=== PATIENT | female | born 1960 | race Caucasian/White ===

== ENCOUNTER → 2021-09-10 17:32 | Outpatient (CLI) | payer OTHER, SELFPAY ==
--- NOTE | 2021-09-10 17:34 | DI.MG.S_ITS ---
BILATERAL DIGITAL SCREENING MAMMOGRAM 3D/2D WITH CAD: 09/10/2021 CLINICAL: Routine screening. Family history of breast cancer. Comparison is made to exams dated: 03/13/2016 mammogram and 02/09/2014 mammogram - outside location. The tissue of both breasts is predominantly fatty. Current study was also evaluated with a Computer Aided Detection (CAD) system. No significant masses, calcifications, or other findings are seen in either breast. There has been no significant interval change. IMPRESSION: NEGATIVE There is no mammographic evidence of malignancy. A 1 year screening mammogram is recommended. This exam was interpreted at Station ID: [id number]. NOTE: For mammograms, a report in lay terms will be sent to the patient. Approximately 15% of breast malignancies will not be visualized mammographically. In the management of a palpable breast mass, a negative mammogram must not discourage biopsy of a clinically suspicious lesion. Electronically Signed By: Nahun pendleton/demetrice:09/11/2021 08:20:17 letter sent: Normal Exam ACR BI-RADS Category 1: Negative [id number]
== END ==
PROVIDERS: PCP Family Medicine; Referring Provider Student in an Organized Health Care Education/Training Program; Visit Provider Student in an Organized Health Care Education/Training Program
DX: Z12.31 Encounter for screening mammogram for malignant neoplasm of breast (principal); Z80.3 Family history of malignant neoplasm of breast
CPT/HCPCS: 77063; 77067

== ENCOUNTER 2023-12-11 04:50 | Inpatient (IN) | payer OTHER, SELFPAY ==
[2023-12-11] VITALS (92 sets, daily range): BP systolic 82–171; BP diastolic 45–102; PULSE 90–133; RESP 11–38; TEMP 36.3–37; O2SAT 82–100; BMI 36.8
--- NOTE | 2023-12-11 | DI.RAD.S_ITS ---
PROCEDURE: XR CHEST 1V INDICATIONS: respiratory failure TECHNIQUE: One view of the chest was acquired. COMPARISON: None. FINDINGS: Surgical changes and devices: None. Lungs and pleura: Prominent pulmonary markings. No consolidation. No pleural effusions or pneumothorax. Mediastinum: Mediastinal contours appear normal. Heart size is normal. Bones and chest wall: No suspicious bony lesions. Overlying soft tissues appear unremarkable. IMPRESSION: Question pulmonary vasculature engorgement. Dictated by: Edvin Green M.D. on 12/11/2023 at 8:19 Approved by: Edvin Green M.D. on 12/11/2023 at 8:20
--- NOTE | 2023-12-11 07:25 | PM.HP.1 ---
History of Present Illness History of Present Illness Date Patient Seen: 12/11/23 Time Patient Seen: 06:30 Chief complaint: roman, astma exacerbation, hyponatremia Narrative: 63 y/o with PMH of asthma, DM, HTN and HLD, seen in the ED of [facility] . short of breath, febrile, dehydrated. Workup revealed likely viral bronchitis, hypoxia requiring few liters of oxygen and ROMAN. Due to lack of beds patient transferred to [facility] as a direct admission. [facility], [facility] Medical History (Updated 12/11/23 @ 07:32 by Milton Modi MD) HLD (hyperlipidemia) Diabetes HTN (hypertension) CKD (chronic kidney disease) Social History household members: spouse Smoking Status: Former smoker alcohol intake: current Review of Systems Constitutional Comments: Fever Generalized weakness Cardiovascular Comments: w/o chest pain or palpitations Respiratory Comments: short of breath Genitourinary Comments: w/o dysuria Exam Vital Signs (past 8 hours): - 12/11/23 06:28 12/11/23 06:48 Temperature 97.3 F L Pulse Rate 133 H Respiratory Rate 24 Blood Pressure 148/84 H Pulse Oximetry 99 Oxygen Delivery Method Nasal Cannula Oxygen Flow Rate 2 Oxygen Delivery Method Nasal Cannula Oxygen Flow Rate 2 Const Other: Sitting in bed in no distress, at bedside HENMT Other: normocephalic, O2 via NC Neck Other: supple Resp Other: wheezy, tachypnea, rhonchi Cardio Other: tachycardic, regular Skin Other: w/o rashes Extrem Other: b/l lower leg swelling, Rt > Lt Psych Other: appropriate mood, lucid Assessment & Plan Assessment and plan (1) Acute hypoxic respiratory failure: Status: Acute (2) Acute viral bronchitis: Status: Acute (3) ROMAN (acute kidney injury): Status: Acute (4) Hyponatremia: Status: Acute (5) Diabetes: Status: Acute (6) HTN (hypertension): Status: Acute Assessment & Plan narrative: 1. Acute Hypoxemic Respiratory Failure - tested positive for rhinovirus and enterovirus, CXR w/o infiltrates - in outside hospital - repeat CXR - albuterol, prednisone for asthma exacerbation - wean off oxygen 2. ROMAN - reported Cr of > 2, previously ~ 1.5 - she was febrile and had decreased PO intake - likely dehydration - checking UA nevertheless 3. Rt leg swelling - doppler - r/o DVT 4. DM - Type 2, ID - at home on Lantus 30 U am and 35 U pm and Trulicity - CCD, SS, Lantus 5. HTN - Lisinopril and HCTZ on hold for ROMAN - BB instead 6. Hyponatremia - NS, monitored electrolytes DVT prophylaxis - heparin Quality VTE Deep Vein Thrombosis/Pulmonary Embolism Present on Admission: No
[2023-12-11] MEDS: SODIUM CHLORIDE 0.45% 1,000 ML 100 ML IV (07:44)
--- NOTE | 2023-12-11 07:55 | DI.US.S_ITS ---
PROCEDURE: US PERIPH VENOUS LOW EXTREM RT INDICATIONS: SOB; EDEMA TECHNIQUE: Real-time imaging, as well as color and pulse Doppler interrogation, were performed of the lower extremity deep veins from the inguinal ligament to the popliteal fossa, with documentation of the visualized calf veins. COMPARISON: None. FINDINGS: The common femoral, femoral, popliteal, and the visualized calf veins are normally compressible, and free of intraluminal thrombus. Color and pulse Doppler demonstrate normal phasic intraluminal flow. There is normal augmentation response to distal compression maneuver. IMPRESSION: Negative left lower extremity duplex venous ultrasound for DVT. Dictated by: Ezequiel Pearl M.D. on 12/11/2023 at 8:37 Approved by: Ezequiel Pearl M.D. on 12/11/2023 at 8:37
[2023-12-11] MEDS: INSULIN LISPRO 100 UNIT/ML 3ML VIAL SUBCUT ×3 (08:08→21:59)
[2023-12-11] MEDS: INSULIN GLARGINE 100 UNIT/ML 3ML PEN 30 UNIT SUBCUT (08:52)
[2023-12-11] MEDS: HEPARIN 5,000 UNIT/ML VIAL 5000 UNIT SUBCUT (08:53)
[2023-12-11] MEDS: METOPROLOL IR 25 MG TABLET PO ×2 (08:53→14:47)
[2023-12-11] MEDS: predniSONE 20 MG TABLET 40 MG PO (08:53)
[2023-12-11 08:59] LABS: Add Manual Diff / Slide Review NO; Basophils Absolute Auto 0 /uL (0-100); Basophils Percent Auto 0.1 % (0-2); Eosinophils Absolute Auto 0 /uL (0-450); Hematocrit 31.1 % (36-46); Hemoglobin 10.2 g/dL (12.0-16.0); Lymphocytes Absolute Auto 800 /uL (1100-4500); Lymphocytes Percent Auto 4.6 % (25-40); Mean Corpuscular HGB Conc 32.9 % (30-36); Mean Corpuscular Volume 85.2 fL (80-100); Monocytes Absolute Auto 700 /uL (0-900); Neutrophils Absolute Auto 15400 /uL (1500-7000); Neutrophils Percent Auto 91.3 % (50-75); Platelet Count 273 X10^3/uL (150-400); Red Blood Cell Count 3.65 X10^6/uL (4.0-5.2); Red Cell Distribution Width 14.9 % (11.6-14.8); White Blood Cell Count 16.9 X10^3/uL (4.5-11.0)
[2023-12-11 09:08] LABS: Magnesium 2.3 mg/dL (1.6-2.3); Phosphorous 7.4 mg/dL (2.8-4.1)
[2023-12-11 09:09] LABS: Alanine Aminotransferase 18 IU/L (<35); Albumin 3.4 g/dL (3.5-5.0); Alkaline Phosphatase 318 U/L (38-126); Aspartate Aminotransferase 33 IU/L (14-36); BUN Creatinine Ratio 28.2 (6-22); Bilirubin Total 0.6 mg/dL (0.2-1.3); Blood Urea Nitrogen 77 mg/dL (7-17); Calcium 8.3 mg/dL (8.4-10.2); Carbon Dioxide 14 mmol/L (22-32); Chloride 98 mmol/L (98-107); Estimated Glomerular Filt Rate 19 mL/min (>60); Globulin 3.5 g/dL (1.7-4.1); Glucose 324 mg/dL (80-110); HEMOLYSIS < 15 (0-50); Sodium 127 mmol/L (137-145); Total Protein 6.9 g/dL (6.3-8.2)
[2023-12-11 09:19] LABS: NT-proBNP (BNP-Adult 18+) 8510 pg/mL (<125)
[2023-12-11 09:24] LABS: Bilirubin Urine UA 2+ (NEGATIVE); Color Urine UA YELLOW; Glucose Urine UA TRACE g/dL (Negative); Ketones Urine UA TRACE (NEGATIVE); Leukocyte Esterase Urine UA NEGATIVE (NEGATIVE); Nitrite Urine UA NEGATIVE (Negative); Occult Blood Urine UA 2+ (Negative); Protein Urine UA 2+ (Negative); Specific Gravity Urine UA 1.025 (1.000-1.035)
[2023-12-11 09:35] LABS: Appearance Urine UA Slightly Cloudy; pH Urine UA 5.5 (4.5-8.0)
[2023-12-11 09:36] LABS: Ictotest Urine Negative (Negative); RBC Urine 1-5/HPF (0-5/HPF); Squamous Epithelial Cell Urine 1-5 /HPF (0-5/HPF); Urine Volume 10mL (spun); WBC Urine 1-5/HPF (0-5/HPF)
[2023-12-11 09:39] LABS: Renal Epithelial Cells Urine 1-5/HPF (0-1/HPF)
[2023-12-11 09:40] LABS: Bacteria Urine Occasional (0-1); Culture Indicated Urine Cult Not Indicated; Transitional Epi Cells Urine 0-1/HPF (0-5/HPF)
[2023-12-11] MEDS: ALBUTEROL 2.5 MG/3 ML NEB (ADULT) INH ×2 (09:45→10:33)
--- NOTE | 2023-12-11 10:21 | DI.ECHO.S_ITS ---
[place] +---------+ Hospital : : [address] : : [place] : : [id number] : : Phone: [phone] Echocardiogram Report + + :Name: RICK RUSSO Study Date: 12/11/2023 Height: 64 in : :Hospital ReadingLocation: Weight: 214 lb : : Gender: Female BSA: 2.0 m2 : :: 1960 Age: 63 yrs BP: 145/60 mmHg: :Reason For Study: SHORTNESS OF BREATH : :Ordering Physician: YOLY, : :RHYS LAM Performed By: Eva Little : :Referring: RHYS FREDERICK : + + Interpretation Summary The left ventricle is moderately dilated. The ejection fraction is estimated to be 30-35%. There is moderate global hypokinesis of the left ventricle. Lateral wall moves the best. The IVC is of normal diameter and collapses less than 50% with a sniff. This suggests a right atrial pressure of 8 mm Hg. There is moderate mitral regurgitation. Procedure: A two-dimensional transthoracic echocardiogram with color flow and Doppler was performed. The study quality was technically adequate. There is no prior echocardiogram noted for this patient. The patient was in sinus tachycardia with heart rates between 117-120 bpm during the exam. Left Ventricle: The left ventricle is moderately dilated. The estimated left ventricular end diastolic volume is 151 ml. Left ventricular end diastolic volume indexed by BSA of 75ml/m2. The ejection fraction is estimated to be 30- 35%. There is moderate global hypokinesis of the left ventricle. Lateral wall moves the best. Diastolic function could not be accurately assessed due to tachycardia. Right Ventricle: The right ventricle is normal in size and function. Atria: The left atrium is mildly dilated. Right atrial size is normal. There is no Doppler evidence for an interatrial shunt. Mitral Valve: The mitral valve leaflets appear mildly thickened, but open well. There is moderate mitral regurgitation. Aortic Valve: The aortic valve is trileaflet. The aortic valve is mildly calcified. There is mild aortic valve sclerosis. There is no aortic valve stenosis. The peak aortic velocity is 1.8 m/sec. The aortic valve mean gradient is 7.5 mmHg. No aortic regurgitation is present. Tricuspid Valve: The tricuspid valve is not well visualized, but is grossly normal. There is a trace or physiologic amount of tricuspid regurgitation. Pulmonary artery pressures cannot be estimated because of the lack of a measurable TR jet velocity but the IVC suggests a CVP of around 8 mmHg. Pulmonic Valve: The pulmonic valve is not well seen, but is grossly normal. There is no pulmonic valvular regurgitation. Great Vessels: The aortic root is normal size. The dimensions of the ascending aorta are normal. The IVC is of normal diameter and collapses less than 50% with a sniff. This suggests a right atrial pressure of 8 mm Hg. Pericardium/ Pleura There is no pericardial effusion. There is no pleural effusion. MMode/2D Measurements & Calculations LVIDd: 6.3 cm LVOT diam: 2.0 cm LVIDs: 5.1 cm Ao root diam: 3.0 cm FS: 18.3 % asc Aorta Diam: 2.9 cm EPSS: 1.6 cm IVSd: 0.96 cm LVPWd: 1.00 cm LV latham. diameter/BSA (cm/m^2): 3.1 LV sys. diameter/BSA (cm/m^2): 2.6 LA A2 area: 23.0 cm2 RA long axis: 4.4 cm LA A4 area: 18.8 cm2 RA area: 13.9 cm2 LA length (vol): 5.2 cm RA vol: 37.5 ml LA vol: 70.4 ml RA : 18.6 ml/m2 LA vol index: 35.0 ml/m2 IVC diam: 1.8 cm RVD1 (basal): 3.7 cm RVD2 (mid): 3.2 cm TAPSE: 1.7 cm Doppler Measurements & Calculations Ao V2 max: 182.5 cm/sec LVOT Max Cresencio: 77.0 cm/sec Ao V2 mean: 129.5 cm/sec LV V1 max P.4 mmHg Ao max P.3 mmHg LV V1 VTI: 13.2 cm Ao mean P.5 mmHg KAMLA(I,D): 1.5 cm2 Ao V2 VTI: 27.0 cm KAMLA(V,D): 1.3 cm2 sev ratio: 0.49 KAMLA indexed to BSA (cm^2/m^2): 0.76 MV E max cresencio: 150.2 cm/sec PA V2 max: 101.7 cm/sec MV A max cresencio: 1.0 cm/sec PA V2 mean: 73.1 cm/sec MV E/A: 147.9 PA mean P.3 mmHg Med Peak E' Cresencio: 8.8 cm/sec PA pr(Accel): 40.5 mmHg E/E' med: 17.1 Lat Peak E' Cresencio: 10.7 cm/sec E/E' lat: 14.1 E/e' average: 15.6 MV dec time: 0.16 sec MVA(VTI): 1.3 cm2 MR ERO: 0.12 cm2 MV V2 mean: 101.4 cm/sec MR PISA: 1.6 cm2 MV mean P.3 mmHg MR flow rate: 60.3 cm3/sec MV V2 VTI: 32.1 cm MR PISA radius: 0.50 cm SV(LVOT): 41.4 ml Reading Physician:03:10 PM
[2023-12-11 10:31] LABS: MRSA (Nasal) PCR NOT DETECTED (Not Detect)
[2023-12-11] MEDS: FUROSEMIDE 40 MG/4 ML VIAL IV (10:50)
--- NOTE | 2023-12-11 10:52 | PC.NURSE ---
Pt complaining of shortness of breath not relieved by albuterol tx, BP 171/101. MD notified and orders received.
[2023-12-11 11:24] LABS: Troponin I 0.018 ng/mL (0.01-0.034)
--- NOTE | 2023-12-11 12:21 | PC.NURSE ---
cdl service technician arrived to perform echo. Pt requested to use BSC and for privacy. Pt assisted to BSC, this RN at doorway. Pt requested to change underwear, RN advised patient to change at the bedside with RN for safety and monitoring capability. Patient declined, stating, Give me a goddamn minute. This RN assisted patient to bathroom SBA contact guard. Pt removed telemetry and BP cuff, throwing to floor. Pt closed bathroom door. This RN opened door to witness pt struggling to put leg through underwear while standing up. RN intervened by opening bathroom door, pt leaned against this RN, slid to floor against RN's legs into sitting position on floor. Pt did not hit head. This RN called for assistance, nursing staff attempted to assist pt to standing position which were unable to do. Pt assisted via jaycob lift back to bed. Vital signs stable, oxygenation 96%-99% on 1L NC. Pt A&Ox4. No evidence injury as pt slid into sitting position with assistance from this RN. Primary RN aware and present. Provider notified. Bed alarm active, care plan updated, call light within reach, curtain open, will continue to monitor.
[2023-12-11 13:33] LABS: BUN Creatinine Ratio 28.8 (6-22); Blood Urea Nitrogen 78 mg/dL (7-17); Calcium 8.6 mg/dL (8.4-10.2); Carbon Dioxide 14 mmol/L (22-32); Chloride 98 mmol/L (98-107); Estimated Glomerular Filt Rate 19 mL/min (>60); Glucose 314 mg/dL (80-110); HEMOLYSIS < 15 (0-50); Sodium 127 mmol/L (137-145)
--- NOTE | 2023-12-11 13:37 | PM.HP.1 ---
History of Present Illness History of Present Illness Date Patient Seen: 12/11/23 Time Patient Seen: 13:00 Chief complaint: roman, astma exacerbation, hyponatremia Narrative: 63 y/o with PMH of asthma, DM, HTN and HLD, seen in the ED of [facility]. short of breath, febrile, dehydrated. Workup revealed likely viral bronchitis, hypoxia requiring few liters of oxygen and ROMAN. Due to lack of beds patient transferred to [facility] as a direct admission. Patient was seen after admission by overnight provider. She has been having mild dyspnea for about the past week. Also with productive cough, rhinorrhea. She denies chest pain. She felt like she couldn't breathe yesterday and came in to the OSH ER. In review of labs from outside hospital, patient with acidosis, elevated anion gap and hyperglycemia. WBC was 23 and Cr was 2.9 at OSH. AG was 19, with a bicarb of <15, lactate was normal. This morning after some fluids labs redrawn after arrival which showed borderline DKA labs. Cr improved slightly to 2.7, WBC improved, but gap of 15 and CO2 of 14. She had gotten lantus this morning by the time labs were drawn, IV fluids had been stopped due to worsening dyspnea (with proBNP of >8000), and was given furosemide. Decision made to repeat labs in 4 hours (as opposed to starting insulin infusion for borderline DKA). Repeat labs remained borderline with CO2 of 14 and mildly elevated anion gap. Remains in sinus tachycardia in the 110s-130s. Had a fall trying to change underwear in the bathroom by herself without any injuries noted after. Subsequently transferred to the ICU for insulin infusion given borderline DKA not improved after subcutaneous insulin and underlying sepsis. [facility] Medical History HLD (hyperlipidemia) Diabetes HTN (hypertension) CKD (chronic kidney disease) Social History household members: spouse Smoking Status: Former smoker alcohol intake: current Meds Home Medications and Allergies Home Medications Medication Instructions Recorded Confirmed Type dulaglutide 3 mg/0.5 mL 3 mg SUBCUT WEEKLY 12/11/23 12/11/23 History subcutaneous pen injector (Trulicity) hydrochlorothiazide 12.5 mg PO DAILY 12/11/23 12/11/23 History insulin glargine 100 unit/mL (3 30 unit SUBCUT 3XD 12/11/23 12/11/23 History mL) subcutaneous pen (Lantus Solostar U-100 Insulin) lisinopril 40 mg tablet 40 mg PO DAILY 12/11/23 12/11/23 History simvastatin 40 mg tablet 40 mg PO ONCE PM 12/11/23 12/11/23 History Allergies Allergy/AdvReac Type Severity Reaction Status Date / Time No Known Drug Allergies Allergy Verified 12/11/23 07:58 Review of Systems Review of Systems Narrative: All other systems reviewed with the patient and are negative unless otherwise stated. Exam Vital Signs (past 8 hours): - 12/11/23 06:28 12/11/23 06:48 12/11/23 07:21 Temperature 97.3 F L Pulse Rate 133 H 124 H Respiratory Rate 24 19 Blood Pressure 148/84 H Pulse Oximetry 99 97 Oxygen Delivery Method Nasal Cannula Oxygen Flow Rate 2 Fraction of Inspired Oxygen 12/11/23 07:30 12/11/23 08:00 12/11/23 08:30 Temperature Pulse Rate 129 H 132 H 129 H Respiratory Rate 22 Blood Pressure Pulse Oximetry 97 98 97 Oxygen Delivery Method Oxygen Flow Rate Fraction of Inspired Oxygen 12/11/23 09:00 12/11/23 09:30 12/11/23 09:46 Temperature Pulse Rate 125 H 115 H 113 H Respiratory Rate 22 22 Blood Pressure Pulse Oximetry 99 96 97 Oxygen Delivery Method Room Air Oxygen Flow Rate 0 Fraction of Inspired Oxygen 21 12/11/23 10:00 12/11/23 10:30 12/11/23 10:41 Temperature Pulse Rate 117 H 128 H 128 H Respiratory Rate 22 29 H 27 H Blood Pressure Pulse Oximetry 97 97 98 Oxygen Delivery Method Oxygen Flow Rate Fraction of Inspired Oxygen 12/11/23 10:41 12/11/23 11:00 12/11/23 11:30 Temperature Pulse Rate 132 H 132 H Respiratory Rate 32 H Blood Pressure 171/102 H Pulse Oximetry 93 94 Oxygen Delivery Method Oxygen Flow Rate Fraction of Inspired Oxygen 12/11/23 11:58 12/11/23 11:58 12/11/23 12:00 Temperature 97.8 F Pulse Rate 124 H 124 H Respiratory Rate 27 H 27 H Blood Pressure 145/60 H Pulse Oximetry 92 100 Oxygen Delivery Method Oxygen Flow Rate Fraction of Inspired Oxygen 12/11/23 12:30 12/11/23 13:00 Temperature Pulse Rate 125 H 121 H Respiratory Rate 28 H 24 Blood Pressure Pulse Oximetry 99 97 Oxygen Delivery Method Oxygen Flow Rate Fraction of Inspired Oxygen Fraction of Inspired Oxygen 21 SaO2/FiO2 Ratio 461 Oxygen Delivery Method Room Air Oxygen Flow Rate 0 Narrative Exam Narrative: General:?Patient mildly ill appearing, no acute distress, pleasant Chest:? Normal AP diameter and contour without kyphoscoliosis, no tachypnea, equal chest rise bilaterally. Lungs:? bilateral upper airway expiratory wheezing, no obvious crackles. Cardio:?tachycardic, regular, no m/r/g Abdomen: S NT ND. Musculoskeletal:? Muscle strength and tone are equal within normal limits, no deformity. Extremities: Trace bilateral LE edema, no clubbing or joint effusions Neuro:? Alert and orientated x3,? sensation to touch intact in all extremities, no gross deficits noted of cranial nerves. Psych:? Patient has a well-kept appearance, appropriate affect, mental status attitude thought context and judgment are appropriate for age. Objective ECG Impression: sinus tachycardia Labs 12/11/23 08:36 12/11/23 13:05 Labs: Laboratory Results - last 24 hr 12/11/23 12/11/23 12/11/23 06:15 07:50 08:36 WBC 16.9 H RBC 3.65 L Hgb 10.2 L Hct 31.1 L MCV 85.2 MCH 28.0 MCHC 32.9 RDW 14.9 H Plt Count 273 Neut % (Auto) 91.3 H Lymph % (Auto) 4.6 L [place] % (Auto) 4.0 Eos % (Auto) 0.0 L Baso % (Auto) 0.1 Neut # (Auto) 01873 H Lymph # (Auto) 800 L [place] # (Auto) 700 Eos # (Auto) 0 Baso # (Auto) 0 Sodium 127 L Potassium 5.0 Chloride 98 Carbon Dioxide 14 L BUN 77 H Creatinine 2.73 H Estimated GFR 19 L BUN/Creatinine Ratio 28.2 H Glucose 324 H Calcium 8.3 L Phosphorus 7.4 H Magnesium 2.3 Total Bilirubin 0.6 AST 33 ALT 18 Alkaline Phosphatase 318 H Troponin I 0.018 NT-Pro-B Natriuret Pep 8510 H Total Protein 6.9 Albumin 3.4 L Globulin 3.5 Albumin/Globulin Ratio 1.0 Urine Color Yellow Urine Appearance Slightly cloudy Urine pH 5.5 Ur Specific [place] 1.025 Urine Protein 2+ H Urine Glucose (UA) Trace H Urine Ketones Trace H Urine Occult Blood 2+ H Urine Nitrate Negative Urine Bilirubin 2+ H Ur Bilirubin Confirm Negative Urine Urobilinogen 1.0 Ur Leukocyte Esterase Negative Urine RBC 1-5/hpf Urine WBC 1-5/hpf Ur Squamous Epith Cells 1-5 /hpf Ur Transition Epith Cell 0-1/hpf Ur Renal Epithelial Cell 1-5/hpf H Urine Bacteria Occasional (0-1) Ur Culture Indicated? Cult not indicated Vol Urine Centrifuged 10ml (spun) Nasal Screen MRSA (PCR) Not detected Assessment & Plan Assessment & Plan narrative: (1) Sepsis with ROMAN on CKD, Acute hypoxic respiratory failure secondary to probable bacterial pneumonia after entero/rhinovirus infections - SOFA score of >2 on presentation with respriatory failure and ROMAN. Baseline cr. reportedly around 1.5. - some improvement with hypoxia with diuresis, proBNP >8000. Ordered for TTE. Patient sinus tachycardia in the 110s-130s currently. - hold IV fluids after diuresis and worsening respiratory status after given on presentation - Continue ceftriaxone and azithromycin for presumed bacterial pneumonia after viral pneumonia given WBC >20K at OSH. - prednisone of asthma exacerbation as well - DKA also likely contributing to presentation. - UA negative for infection. (2) Asthma with exacerbation - continue steroids as noted above, and albuterol as needed. (3) DKA, present on admission - patient with AG of 19 at OSH with borderline acidosis (bicarb around 15) and elevated glucose. Trace ketones in urine. Was not started on insulin until after arrival this morning. Repeat labs drawn again showed borderline DKA with bicarb of 14, AG of 15, and elevated glucose though improving creatinine. - elected to repeat BMP 4 hours after initial labs as SQ insulin had just been given and borderline DKA. However given no improvement in acidosis or anion gap will start insulin infusion and move to the ICU. (4) HTN (hypertension): - patient is hypertensive on presentation, will diurese as needed with furosemide. Hold lisinopril in the setting of ROMAN. Code: Full, surrogate is patient's spouse DVT: Lovenox daily I have utilized all available immediate resources to obtain, update, or review the patient's current medications. Dispo: ICU for insulin infusion. I spent 45 minutes providing critical care management this patient. This excludes time spent in performing separately billed procedures. Additional history obtained via discussions with the overnight provider. These discussions contributed to the creation of the above assessment and plan. I have reviewed patient's presenting documentation, labs, and imaging personally. Quality VTE Deep Vein Thrombosis/Pulmonary Embolism Present on Admission: No
[2023-12-11 13:38] LABS: Potassium 5.6 mmol/L (3.4-5.1)
[2023-12-11] MEDS: INSULIN DRIP PREMIX 100 UNIT/100 ML PLAST..BAG IV (14:26)
[2023-12-11 14:30] LABS: PCO2 ABG 43.5 mmHg (35-45)
[2023-12-11 14:31] LABS: Allen Test for ABG Passed? Yes, Passed; Blood Gas Collection Site Left Radial; Blood Gas Other Coll. Site NR; Fractionated Inspired Oxygen 21; HCO3 ABG 17 mmol/L (23-27); Oxygen Saturation ABG 89 % (95-100); PO2 ABG 69 mmHg (80-100); TCO2 ABG 18 mmol/L (23-27)
[2023-12-11] MEDS: cefTRIAXone 1,000 MG in SODIUM CHLORIDE 0.9% 100 ML 200 MG IV (14:47)
[2023-12-11] MEDS: AZITHROMYCIN 500 MG in DEXTROSE 5% IN WATER 250 ML 250 MG IV (15:40)
--- NOTE | 2023-12-11 16:19 | CM.DANOTE ---
DCP Assessment Note Pt is a 63yo female, resident of [place], was directly admitted from [facility]'s emergency department. Pt was admitted for acute kidney injury, hyponatremia and suspected DKA. Pt lives in a house with her , Phillip. PCP: Dr. Mindi Suarez, Insurance: [employer] Reviewed chart and team rounds for pt's medical status and initial discharge needs. CLASSIFICATION CONTROL CLERK attempted 2x to meet with pt but per ICU nurse, pt wanted privacy and/or was in the middle of imaging/intervention. CLASSIFICATION CONTROL CLERK called pt's , Phillip, introduced self and role. Pt's confirmed pt's living arrangements at home and baseline independence. Pt's did not anticipate any discharge needs; CLASSIFICATION CONTROL CLERK provided pt with acute care nurse number to obtain updates from nurse per 's request. Plan: Anticipating home with spouse in a few days. CM team will plan to follow clinical course closely for assessment of need and coordination of discharge plan. EVERETT De Santiago Discharge Planning/Care Management CM Discharge Assessment Start: 12/11/23 16:12 Freq: Status: Active Protocol: Document 12/11/23 16:13 MW (Rec: 12/11/23 16:17 MW [id number]) Discharge Planning Assessment Assigned Spud Sorter SHIREEN Pedersen DPOA/Assigned Designee Name Aung Fisher Contact Information [phone] Advance Directives? No History Provided By Family Member,Medical Record Has Patient been admitted in last 30 No days? Prior Living Arrangements House Household Members spouse Type of transporation used prior to Drives own vehicle admit Independent with ADL's Yes Is patient alert and oriented? Yes Whiteboard Updated in Patient Room with No name and ext. # of Spud Sorter Please Provide Date Initial DC 12/11/23 Assessment Was Performed Next Review Type Continued Stay Review
[2023-12-11] MEDS: SODIUM CHLORIDE 0.9% 500 ML 21 ML IV (16:23)
[2023-12-11] MEDS: LORazepam 0.5 MG TABLET PO (16:32)
--- NOTE | 2023-12-11 16:35 | PC.NURSE ---
1600 pt hyperventilating and states she cant breathe. VS stable, SPO2 97% MD contacted for orders. 1630, Ativan 0.5mg po given as ordered.
--- NOTE | 2023-12-11 16:53 | DI.RAD.S_ITS ---
PROCEDURE: XR CHEST 1V INDICATIONS: acute dyspnea TECHNIQUE: One view of the chest was acquired. COMPARISON: [facility], CR, XR CHEST 1V, 12/11/2023, 7:32. FINDINGS: Surgical changes and devices: Endotracheal tube tip projects over the midthoracic trachea. Feeding tube projects over the stomach. Lungs and pleura: Lower lobe predominant interstitial opacities and peribronchial cuffing. Mediastinum: Mediastinal contours appear normal. Heart size is normal. Bones and chest wall: No suspicious bony lesions. Overlying soft tissues appear unremarkable. IMPRESSION: Suspected moderate pulmonary edema. Support devices project over the appropriate positions. Dictated by: Malik Draper M.D. on 12/11/2023 at 17:45 Approved by: Malik Draper M.D. on 12/11/2023 at 17:46
[2023-12-11] MEDS: SUCCINYLCHOLINE 200 MG/10 ML VIAL 100 MG IV (17:16)
[2023-12-11] MEDS: fentaNYL 1,000 MCG in DEXTROSE 5% IN WATER 230 ML 17.063 MCG IV (17:37)
--- NOTE | 2023-12-11 17:43 | ED.CONSULT ---
ED Provider Consult/Code Note General Reason for Admission: blanca, astma exacerbation, hyponatremia Events leading to Consult/Code: Acute hypercapnic respiratory failure failure to protect airway. Respiratory Auscultation: clear to auscultation bilaterally ET Tube Size: 7 Tube Secured Depth (cm): 22 Tube Secured Location: teeth Tube Placement Confirmation: Visualized tube passing through cords, Equal breath sounds bilaterally, No breath sounds over epigastrium and Confirmation by capnometry Care Provided Description of care provided: Intubation Preprocedure diagnosis: Acute hypercapnic respiratory failure Postprocedure diagnosis: Acute hypercapnic respiratory failure Indication: Airway protection, ventilation Type of procedure: Endotracheal intubation Procedure was done at bedside in the emergency department. Consent was waived as this was an emergent procedure. The patient was properly identified and the procedure was performed with the staff. Prior to intubation monitors were in place and equipment was checked. Patient was preoxygenated. Medications given were: etomidate 10 mg, succinylcholine 100 mg Intubation was performed by myself with GlideScope A 7.0 Endotracheal tube was inserted between vocal cords which were visualized. CO2 monitor showed yellow color change. Positive breath sounds bilaterally with mist in the tube. Tube was taped at 22 cm at the lip by the respiratory therapist. Chest x-ray is obtained at this time: ET tube in place no pneumothorax. Patient does have some opacification on the right mediastinal border may have some aspiration. Complications: none, patient tolerated procedure well.
[2023-12-11] MEDS: MIDAZOLAM 50 MG in DEXTROSE 5 % IN WATER 40 ML IV (17:47)
[2023-12-11] MEDS: FLUMAZENIL 0.5 MG/5 ML MDV 0.2 MG IV (17:52)
[2023-12-11] MEDS: ETOMIDATE 2 MG/ML 10 ML VIAL 9.8 MG IV (17:58)
[2023-12-11 18:01] LABS: Allen Test for ABG Passed? Yes, Passed; Blood Gas Collection Site Right Radial; Fractionated Inspired Oxygen 21; HCO3 ABG 24 mmol/L (23-27); Oxygen Saturation ABG 89 % (95-100); PCO2 ABG 97.7 mmHg (35-45); PO2 ABG 89 mmHg (80-100); TCO2 ABG 27 mmol/L (23-27); pH ABG 6.99 (7.35-7.45)
--- NOTE | 2023-12-11 18:14 | DI.CT.S_ITS ---
PROCEDURE: CT HEAD/BRAIN WO CON INDICATIONS: altered mental status TECHNIQUE: Noncontrast 4.5 mm thick angled axial sections acquired from the foramen magnum to the vertex, with coronal and sagittal reformats. For radiation dose reduction, the following was used: automated exposure control, adjustment of mA and/or kV according to patient size. COMPARISON: None. FINDINGS: Image quality: Diagnostic CSF spaces: Basal cisterns are patent. Lateral ventricles are symmetric. Volume: Vascular calcifications. Periventricular white matter disease is commonly seen with chronic microangiopathy. Volume loss is present. These findings are mild Brain: Very ill-defined areas of hypoattenuation in the bilateral frontal lobes (6/15). No gross loss of damico-white differentiation. No acute hematoma Craniofacial structures: Partially seen opacification of the paranasal sinuses IMPRESSION: Age-indeterminate ill-defined hypoattenuation in the bilateral frontal lobes, possibly from chronic small vessel disease or prior injury such as infarct. If there is high concern for parenchymal pathology, consider further evaluation with MRI. No acute hematoma. Paranasal sinus disease. Dictated by: Des Yu M.D. on 12/11/2023 at 20:16 Approved by: Des Yu M.D. on 12/11/2023 at 20:18
--- NOTE | 2023-12-11 18:16 | DI.CT.S_ITS ---
PROCEDURE: CT CHEST ABD PEL WO CON INDICATIONS: acute respiratory decompensation TECHNIQUE: After the administration of oral contrast, 5 mm thick sections acquired from the lung apices to the symphysis pubis. 5 mm thick coronal and sagittal reformats acquired, with additional 7 mm coronal MIP reformats through the lungs. For radiation dose reduction, the following was used: automated exposure control, adjustment of mA and/or kV according to patient size. COMPARISON: None. FINDINGS: Image quality: Mild motion artifact Lungs and pleura: ET tube terminates in the lower trachea. No drainable pleural effusions. Bibasilar opacities, particularly in the left lower lobe. Diffuse nodularity in a centrilobular pattern. Mediastinum, heart, and esophagus: An enteric tube terminates in the gastric body. Mild cardiomegaly. A right central line terminates in the SVC. There are coronary calcifications. Prominent mediastinal and hilar lymph nodes are seen, possibly reactive Chest wall and thyroid: No actionable thyroid nodule identified. Chest wall is unremarkable Liver: Solid organs not well evaluated without intravenous contrast. No contour deforming mass Gallbladder and biliary system: Absent, nondilated Pancreas: No ductal dilation. Spleen: Nonenlarged Adrenals: Right adrenal myelolipoma. Kidneys: No contour deforming mass or hydronephrosis Vessels and lymph nodes: No abdominal aortic aneurysm. No pathologic lymph nodes by size criteria. Bowel and peritoneum: No evidence of small bowel obstruction. No pathologic ascites or drainable abscess there are colonic diverticula. No evidence of acute inflammation Body wall: Unremarkable Pelvis: A Gutierrez is in place. Bladder is under distended. Reproductive organs are unremarkable on limited CT evaluation. Possible fibroids are present. Bones: There are degenerative changes. IMPRESSION: Mildly motion degraded, limited noncontrast CT. Bibasilar pulmonary consolidations compatible with infection. Diffuse centrilobular nodules are also compatible with infection. No drainable pleural effusions. Consider future imaging surveillance to assess for resolution. Other incidental findings above Dictated by: Des Yu M.D. on 12/11/2023 at 20:39 Approved by: Des Yu M.D. on 12/11/2023 at 20:44
--- NOTE | 2023-12-11 18:16 | PM.EVENT ---
Event Note Date Patient Seen: 12/11/23 Time Patient Seen: 17:00 Event Note (Rapid Response, Code, or fall): At approximately 1653 today notified of a significant patient change. Patient previously complaining of worsening dyspnea and anxiety. She had been off of O2 briefly. Echo had come back at 30-35% after initial note written earlier today. She was given 0.5 mg of ativan at that time. At my evaluation around 1655 patient was not responsive, initially O2 saturations were >90% but after a few minutes she dipped down into the mid 80s. Placed on oxygen mask. She was not responsive to sternal rub, made no sounds, nor opened her eyes. She was given 2 doses of flumazenil 0.2 mg without response. ABG obtained showed a pH of 6.9 with a PCO2 of >90. Earlier in the day pH was 7.2 and PCO2 was near 40. Anesthesiology was not available, ER provider performed intubation in the ICU. Bedside POCUS shows easily collapsible IVC. 1L IV fluid bolus given. Initially started on fentanyl and versed for sedation with EF of 30-35%. Tele public health professor recommended change to propofol. Patient also became hypotensive on sedation, requiring initiation of levophed briefly and central line placement. Discussed over the phone with her and updated him. Have ordered xray for central line placement, and after discussion with tele-public health professor will check CT head, CT chest abd pevlis (had some abdominal distension prior to intubation). Will start empiric treatment of heparin infusion for possible PE given her ROMAN and inability to perform CTA at this time. I spent 75 additional minutes providing critical care management this patient separate from her H&P for a total of 115 minutes total. This excludes time spent in performing separately billed procedures. Plan: New diagnoses: septic shock, acute heart failure with reduced ejection fraction. - broaden to cefepime and vancomycin - sputum culture ordered - wean levophed as tolerated - CT chest / abd / pelvis w/o contrast ordered - heparin gtt for possible PE, consider CTA depending on renal status tomorrow. - off insulin infusion, continue frequent BMP monitoring. Gap is closed, acidosis suspect related to severe hypercapnea at this time. - continue lantus 30 U daily, received this AM. Monitor closely with continued fingerstick and consider additional dosing (home lantus is 30 BID). - diuresis only as needed. Patient was given 1L fluid bolus during rapid response as bedside POCUS consistent more with HYPOvolemia. - repeat ABG ordered after intubation and above procedures performed. - appreciate tele-public health professor consultation.
[2023-12-11 18:17] LABS: BUN Creatinine Ratio 33.9 (6-22); Blood Urea Nitrogen 59 mg/dL (7-17); Carbon Dioxide 11 mmol/L (22-32); Chloride 114 mmol/L (98-107); Estimated Glomerular Filt Rate 33 mL/min (>60); Glucose 127 mg/dL (80-110); Potassium 3.6 mmol/L (3.4-5.1); Sodium 137 mmol/L (137-145)
[2023-12-11 18:29] LABS: Troponin I 0.016 ng/mL (0.01-0.034)
[2023-12-11 18:32] LABS: HEMOLYSIS 75 (0-50)
[2023-12-11 18:34] LABS: Calcium 5.9 mg/dL (8.4-10.2)
--- NOTE | 2023-12-11 18:42 | P.TELICUCN_ITS ---
History of Present Illness Consult details IF CAMERA ACTIVATED, patient seen via real-time interactive audiovisual communication: Camera activated Chief complaint: roman, astma exacerbation, hyponatremia Consent obtained for tele-home inspector care: Yes Patient Location: ICU Provider location (State): Other participants/roles: , RN, RT Narrative: 63 y/o with PMH of asthma, DM, HTN and HLD, admitted for acute hypoxic resp failue 2/2 viral PNA/ Rhino virus , complictaed by DKA and ROMAN on CKD. Today pt hypoxia resolving / weaned to RA, then became more tachypnic and tachycardic , anxious so was give 0.5 mg of ativen, later patient became un responsive, hypoxic and hypercapnic , intubated. Pt received flumazenile with no improvement. Echo prior to last event showed Ef 30% & mod MR. Assessment: Acute encephalopathy 2/2 hypercapnia, evaluate for other etiology , currently on Versed and fentanyl, switch scar to propofol , get stat HCT, then turn off sedation for neuro eval , if no neuro exam then needs STAT EEG Acute hypercapnic resp failure could be 2/2 worsening mental status, worsening acidemia causing resp distress, tachypena then tiring out , DD acute PE, plan for emperic treatment with heparin drip after R/O of Stroke, repeat 2 D echo in Am Acute hypoxic resp failure 2/2 viral PNA with superimposed bacterial infection in the sitting of asthma, on PRVC 16/350/5/50 , pending repeat blood gas, continue vent , cont albuterol, steroid, broad spectrum Ab, f/u resp & blood cx. F/U CT chest W/o contrast Septic shock 2/2 PNA, required levo for short time , could bec of acidemia, levo will be turned off , cont Ab and f/U cx DKA , continue IV insulin and replacement per protocol ROMAN on CKD, baseline Cr 1.5, Cr improving, avoid nephrotoxic agents New Dx of systolic HF, initally received fluid then lasix, hold off BB, hold further lasix or fluid for now, last Echo and CXR does not show major volume issue. GI & VTE ppx Full code Discussed the plan with , RT & RN CCT 40 min [facility] Medical History HLD (hyperlipidemia) Diabetes HTN (hypertension) CKD (chronic kidney disease) Social History household members: spouse Smoking Status: Former smoker alcohol intake: current Current Medications Current Medications Medications: Home Medications dulaglutide 3 mg/0.5 mL subcutaneous pen injector (Trulicity) 3 mg SUBCUT WEEKLY 12/11/23 [History Confirmed 12/11/23] hydrochlorothiazide 12.5 mg PO DAILY 12/11/23 [History Confirmed 12/11/23] insulin glargine 100 unit/mL (3 mL) subcutaneous pen (Lantus Solostar U-100 Insulin) 30 unit SUBCUT 3XD 12/11/23 [History Confirmed 12/11/23] lisinopril 40 mg tablet 40 mg PO DAILY 12/11/23 [History Confirmed 12/11/23] simvastatin 40 mg tablet 40 mg PO ONCE PM 12/11/23 [History Confirmed 12/11/23] Visit Medications (administered) Generic Name Dose Route Start Last Admin Trade Name Freq PRN Reason Stop Dose Admin Albuterol 2.5 mg 12/11/23 07:21 12/11/23 10:33 Albuterol 2.5 Mg/3 Ml Neb (Adult) INH 2.5 mg [id number] PRN Administration Shortness Of Breath Heparin Sodium (Porcine) 5,000 unit 12/11/23 09:00 12/11/23 08:53 Heparin 5,000 Unit/Ml Vial SUBCUT 5,000 unit BID SIMÓN Administration Ceftriaxone Sodium 1,000 mg/ 100 mls @ 200 mls/hr 12/11/23 15:00 12/11/23 18:23 Sodium Chloride IV 12/16/23 14:59 Infused Q24H SIMÓN Infusion Azithromycin 500 mg/ Dextrose 250 mls @ 250 mls/hr 12/11/23 16:00 12/11/23 18:23 IV 12/14/23 15:59 Infused Q24H SIMÓN Infusion INSULIN DRIP PREMIX 100 unit in 100 mls @ 1.95 mls/hr 12/11/23 14:15 12/11/23 17:33 Myxredlin Drip Premix IV 0 unit/kg/hr TITRATE SIMÓN 0 mls/hr Titration Protocol 0.02 UNIT/KG/HR Sodium Chloride 500 mls @ 21 mls/hr 12/11/23 15:45 12/11/23 16:23 Normal Saline 0.9% IV 21 mls/hr CONT SIMÓN Administration Fentanyl 1,000 mcg/ Dextrose 250 mls @ 17.063 mls/hr 12/11/23 17:30 12/11/23 17:37 IV 0.7 mcg/kg/hr TITRATE SIMÓN 17.063 mls/hr Administration Protocol 0.7 MCG/KG/HR Midazolam HCl 50 mg/ Dextrose 50 mls @ 5 mls/hr 12/11/23 17:30 12/11/23 17:47 IV 5 mg/hr TITRATE SIMÓN 5 mls/hr Administration Protocol 5 MG/HR Insulin Glargine 30 unit 12/11/23 09:00 12/11/23 08:52 Insulin Glargine 100 Unit/Ml 3ml Pen SUBCUT 30 unit BID SIMÓN Administration Insulin Human Lispro 0 unit 12/11/23 07:45 12/11/23 17:48 Insulin Lispro 100 Unit/Ml 3ml Vial SUBCUT Not Given ACHS SIMÓN Protocol Lorazepam 0.5 mg 12/11/23 16:29 12/11/23 16:32 Lorazepam 0.5 Mg Tablet PO 0.5 mg Q4HR PRN Administration Anxiety Metoprolol Tartrate 25 mg 12/11/23 09:00 12/11/23 14:47 Metoprolol Ir 25 Mg Tablet PO 25 mg TID SIMÓN Administration Prednisone 40 mg 12/11/23 09:00 12/11/23 08:53 Prednisone 20 Mg Tablet PO 40 mg DAILY SIMÓN Administration Exam Vital Signs (past 8 hours): - 12/11/23 11:00 12/11/23 11:30 12/11/23 11:58 Temperature Pulse Rate 132 H 132 H 124 H Respiratory Rate 32 H 27 H Blood Pressure Pulse Oximetry 93 94 92 12/11/23 11:58 12/11/23 12:00 12/11/23 12:30 Temperature 97.8 F Pulse Rate 124 H 125 H Respiratory Rate 27 H 28 H Blood Pressure 145/60 H Pulse Oximetry 100 99 12/11/23 13:00 12/11/23 13:30 12/11/23 14:00 Temperature Pulse Rate 121 H 120 H 123 H Respiratory Rate 24 29 H 31 H Blood Pressure Pulse Oximetry 97 95 96 12/11/23 14:30 12/11/23 15:00 12/11/23 15:30 Temperature Pulse Rate 121 H 116 H 109 H Respiratory Rate 25 H 26 H 24 Blood Pressure Pulse Oximetry 100 97 96 12/11/23 16:00 12/11/23 16:03 12/11/23 16:03 Temperature Pulse Rate 114 H 115 H Respiratory Rate 32 H 23 Blood Pressure 139/67 Pulse Oximetry 98 97 12/11/23 16:30 12/11/23 16:46 12/11/23 16:46 Temperature Pulse Rate 114 H 111 H Respiratory Rate 29 H 27 H Blood Pressure 136/68 Pulse Oximetry 99 99 12/11/23 17:00 12/11/23 17:06 12/11/23 17:06 Temperature Pulse Rate 107 H 109 H Respiratory Rate 24 38 H Blood Pressure 98/64 Pulse Oximetry 82 L 99 12/11/23 17:10 12/11/23 17:10 12/11/23 17:15 Temperature Pulse Rate 109 H Respiratory Rate 33 H Blood Pressure 102/70 100/61 Pulse Oximetry 99 12/11/23 17:15 12/11/23 17:17 12/11/23 17:17 Temperature Pulse Rate 107 H 107 H Respiratory Rate 28 H 13 Blood Pressure 98/56 L Pulse Oximetry 98 99 12/11/23 17:18 12/11/23 17:18 12/11/23 17:20 Temperature Pulse Rate 105 H 106 H Respiratory Rate 17 25 H Blood Pressure 91/54 L Pulse Oximetry 99 99 12/11/23 17:20 12/11/23 17:22 12/11/23 17:22 Temperature Pulse Rate 105 H Respiratory Rate 11 L Blood Pressure 106/55 L 99/57 L Pulse Oximetry 99 12/11/23 17:25 12/11/23 17:25 12/11/23 17:30 Temperature Pulse Rate 105 H 108 H Respiratory Rate 13 25 H Blood Pressure 100/58 L Pulse Oximetry 99 100 12/11/23 17:30 12/11/23 17:35 12/11/23 17:35 Temperature Pulse Rate 110 H Respiratory Rate 22 Blood Pressure 117/52 L 119/57 L Pulse Oximetry 99 12/11/23 17:40 12/11/23 17:40 12/11/23 17:45 Temperature Pulse Rate 111 H 112 H Respiratory Rate 33 H 27 H Blood Pressure 118/55 L Pulse Oximetry 99 99 12/11/23 17:45 12/11/23 17:50 12/11/23 17:50 Temperature Pulse Rate 111 H Respiratory Rate 30 H Blood Pressure 118/56 L 120/63 Pulse Oximetry 99 12/11/23 17:55 12/11/23 17:55 12/11/23 17:56 Temperature Pulse Rate 113 H Respiratory Rate 28 H Blood Pressure 121/65 111/60 Pulse Oximetry 100 12/11/23 17:56 12/11/23 18:00 12/11/23 18:00 Temperature Pulse Rate 112 H 108 H Respiratory Rate 24 19 Blood Pressure 99/55 L Pulse Oximetry 100 100 12/11/23 18:05 12/11/23 18:05 12/11/23 18:10 Temperature Pulse Rate 109 H 108 H Respiratory Rate 19 19 Blood Pressure 101/57 L Pulse Oximetry 100 100 12/11/23 18:10 Temperature Pulse Rate Respiratory Rate Blood Pressure 95/52 L Pulse Oximetry Fraction of Inspired Oxygen 21 SaO2/FiO2 Ratio 461 Oxygen Delivery Method Room Air Oxygen Flow Rate 0 Objective Labs 12/11/23 08:36 12/11/23 16:45 Labs: Laboratory Results - last 24 hr 12/11/23 12/11/23 12/11/23 06:15 07:50 08:36 WBC 16.9 H RBC 3.65 L Hgb 10.2 L Hct 31.1 L MCV 85.2 MCH 28.0 MCHC 32.9 RDW 14.9 H Plt Count 273 Neut % (Auto) 91.3 H Lymph % (Auto) 4.6 L Bell % (Auto) 4.0 Eos % (Auto) 0.0 L Baso % (Auto) 0.1 Neut # (Auto) 41240 H Lymph # (Auto) 800 L Bell # (Auto) 700 Eos # (Auto) 0 Baso # (Auto) 0 Sample Site ABG Sample Site ABG pH ABG pCO2 ABG pO2 ABG HCO3 ABG Total CO2 ABG O2 Saturation ABG Base Excess FiO2 Sodium 127 L Potassium 5.0 Chloride 98 Carbon Dioxide 14 L BUN 77 H Creatinine 2.73 H Estimated GFR 19 L BUN/Creatinine Ratio 28.2 H Glucose 324 H Calcium 8.3 L Phosphorus 7.4 H Magnesium 2.3 Total Bilirubin 0.6 AST 33 ALT 18 Alkaline Phosphatase 318 H Troponin I 0.018 NT-Pro-B Natriuret Pep 8510 H Total Protein 6.9 Albumin 3.4 L Globulin 3.5 Albumin/Globulin Ratio 1.0 Urine Color Yellow Urine Appearance Slightly cloudy Urine pH 5.5 Ur Specific [place] 1.025 Urine Protein 2+ H Urine Glucose (UA) Trace H Urine Ketones Trace H Urine Occult Blood 2+ H Urine Nitrate Negative Urine Bilirubin 2+ H Ur Bilirubin Confirm Negative Urine Urobilinogen 1.0 Ur Leukocyte Esterase Negative Urine RBC 1-5/hpf Urine WBC 1-5/hpf Ur Squamous Epith Cells 1-5 /hpf Ur Transition Epith Cell 0-1/hpf Ur Renal Epithelial Cell 1-5/hpf H Urine Bacteria Occasional (0-1) Ur Culture Indicated? Cult not indicated Vol Urine Centrifuged 10ml (spun) Nasal Screen MRSA (PCR) Not detected 12/11/23 12/11/23 12/11/23 13:05 14:18 16:45 WBC RBC Hgb Hct MCV MCH MCHC RDW Plt Count Neut % (Auto) Lymph % (Auto) Bell % (Auto) Eos % (Auto) Baso % (Auto) Neut # (Auto) Lymph # (Auto) Bell # (Auto) Eos # (Auto) Baso # (Auto) Sample Site Nr ABG Sample Site Left radial ABG pH 7.20 L* ABG pCO2 43.5 ABG pO2 69 L ABG HCO3 17 L ABG Total CO2 18 L ABG O2 Saturation 89 L ABG Base Excess -11.0 L FiO2 21 Sodium 127 L 137 D Potassium 5.6 H 3.6 D Chloride 98 114 H Carbon Dioxide 14 L 11 L BUN 78 H 59 H Creatinine 2.71 H 1.74 H Estimated GFR 19 L 33 L BUN/Creatinine Ratio 28.8 H 33.9 H Glucose 314 H 127 H D Calcium 8.6 5.9 L* Phosphorus Magnesium Total Bilirubin AST ALT Alkaline Phosphatase Troponin I 0.016 NT-Pro-B Natriuret Pep Total Protein Albumin Globulin Albumin/Globulin Ratio Urine Color Urine Appearance Urine pH Ur Specific [place] Urine Protein Urine Glucose (UA) Urine Ketones Urine Occult Blood Urine Nitrate Urine Bilirubin Ur Bilirubin Confirm Urine Urobilinogen Ur Leukocyte Esterase Urine RBC Urine WBC Ur Squamous Epith Cells Ur Transition Epith Cell Ur Renal Epithelial Cell Urine Bacteria Ur Culture Indicated? Vol Urine Centrifuged Nasal Screen MRSA (PCR) 12/11/23 17:02 WBC RBC Hgb Hct MCV MCH MCHC RDW Plt Count Neut % (Auto) Lymph % (Auto) Bell % (Auto) Eos % (Auto) Baso % (Auto) Neut # (Auto) Lymph # (Auto) Bell # (Auto) Eos # (Auto) Baso # (Auto) Sample Site ABG Sample Site Right radial ABG pH 6.99 L* ABG pCO2 97.7 H* ABG pO2 89 ABG HCO3 24 ABG Total CO2 27 ABG O2 Saturation 89 L ABG Base Excess -8.0 L FiO2 21 Sodium Potassium Chloride Carbon Dioxide BUN Creatinine Estimated GFR BUN/Creatinine Ratio Glucose Calcium Phosphorus Magnesium Total Bilirubin AST ALT Alkaline Phosphatase Troponin I NT-Pro-B Natriuret Pep Total Protein Albumin Globulin Albumin/Globulin Ratio Urine Color Urine Appearance Urine pH Ur Specific [place] Urine Protein Urine Glucose (UA) Urine Ketones Urine Occult Blood Urine Nitrate Urine Bilirubin Ur Bilirubin Confirm Urine Urobilinogen Ur Leukocyte Esterase Urine RBC Urine WBC Ur Squamous Epith Cells Ur Transition Epith Cell Ur Renal Epithelial Cell Urine Bacteria Ur Culture Indicated? Vol Urine Centrifuged Nasal Screen MRSA (PCR)
[2023-12-11] MEDS: NOREPINEPHRINE BITARTRATE/D5W 4 MG/250 ML PLAST..BAG 36.6 MG IV (19:32)
--- NOTE | 2023-12-11 19:47 | PM.PROC.1 ---
Procedures Date/Time Date of procedure: 12/11/23 Time of procedure: 18:40 Central Line Placement Time out performed: Yes Patient placed on monitor/pulse ox: Yes MD prep: mask, gown and gloves Central line prep: Chlorhexidine scrub Local anesthesia used: lidocaine 1% Amount of anesthesia used (ml): 2 Ultrasound used for placement: Yes Central line lumen inserted: triple Post procedure: sutured in place, good blood return, all ports aspirated, flushed, capped and sterile dressing applied Post procedure x-ray: tip of catheter in good position and no pneumothorax seen Patient tolerated procedure: well and no complications Complications: none Additional comments: central line performed for septic shock. Consent was obtained over the phone with the patient's spouse prior to the procedure. Risks and benefits of this procedure were explained, and any questions were answered. A time out was performed. My hands were washed immediately prior to the procedure. I wore a surgical cap, mask, full gown and sterile gloves throughout the procedure. The Right neck was prepped using chlorhexidine scrub and draped in sterile fashion using a three quarter sheet drape and sterile towels. Skin preparation was allowed to dry prior to skin puncture. Anatomic landmarks were identified. Anesthesia was achieved over the vein using 1% lidocaine. Using real-time ultrasound, with sterile probe cover and sterile gel, the introducer needle was inserted into the vein under direct ultrasound visualization. Venous blood was withdrawn. The syringe was removed and a guidewire was advanced into the introducer needle. The guidewire was visualized in the appropriate vein by ultrasound. A small incision was made at the skin surface with a scalpel and the introducer needle was exchanged for a dilator over the guidewire. After appropriate dilation was obtained, the dilator was exchanged over the wire for an central venous catheter. The wire was removed and the catheter was sutured in place. A sterile op-site was placed over the catheter. The patient tolerated the procedure without any hemodynamic compromise. At time of procedure completion, all ports aspirated and flushed properly.
--- NOTE | 2023-12-11 19:48 | DI.RAD.S_ITS ---
PROCEDURE: XR CHEST 1V INDICATIONS: central line placement TECHNIQUE: One view of the chest was acquired. COMPARISON: [facility], CR, XR CHEST 1V, 12/11/2023, 17:23. [facility], CR, XR CHEST 1V, 12/11/2023, 7:32. FINDINGS: Surgical changes and devices: A central line terminates in lower SVC. ET tube terminates in the mid trachea. Enteric tube terminates below the diaphragm. Lungs and pleura: [id number] diffuse lung disease persists, similar to prior. No drainable effusions. Mediastinum: Mild cardiomegaly, unchanged Bones and chest wall: Unremarkable IMPRESSION: Appropriate positioning of life support lines. [id number] persistent diffuse lung disease, possibly infection or edema. Consider future imaging surveillance to assess for resolution. Dictated by: Des Yu M.D. on 12/11/2023 at 20:26 Approved by: Des Yu M.D. on 12/11/2023 at 20:27
[2023-12-11 20:41] LABS: Allen Test for ABG Passed? Yes, Passed; Blood Gas Collection Site Right Radial; Fractionated Inspired Oxygen 50; HCO3 ABG 19 mmol/L (23-27); Oxygen Saturation ABG 98 % (95-100); PCO2 ABG 57.1 mmHg (35-45); PO2 ABG 190 mmHg (80-100); TCO2 ABG 21 mmol/L (23-27); pH ABG 7.13 (7.35-7.45)
[2023-12-11 21:26] LABS: PTT Partial Thromboplastin Tim 36 SECONDS (25.1-36.5)
[2023-12-11 21:27] LABS: BUN Creatinine Ratio 31.8 (6-22); Blood Urea Nitrogen 82 mg/dL (7-17); Calcium 8.4 mg/dL (8.4-10.2); Carbon Dioxide 16 mmol/L (22-32); Chloride 101 mmol/L (98-107); Estimated Glomerular Filt Rate 20 mL/min (>60); Glucose 216 mg/dL (80-110); HEMOLYSIS < 15 (0-50); Sodium 129 mmol/L (137-145)
[2023-12-11 21:28] LABS: Potassium 5.6 mmol/L (3.4-5.1)
[2023-12-11] MEDS: HEPARIN 5,000 UNIT/ML VIAL 8000 UNIT IV (21:47)
[2023-12-11] MEDS: HEPARIN DRIP 25,000 UNIT/500 ML IV.SOLN 35.1 UNIT IV (21:52)
[2023-12-11] MEDS: propofoL 1,000 MG/100 ML VIAL 2.925 MG IV (21:53)
[2023-12-11] MEDS: CEFEPIME 1 GM in SODIUM CHLORIDE 0.9% 100 ML IV (21:54)
[2023-12-11] MEDS: SODIUM CHLORIDE 0.9% FLUSH 10 ML IV (21:55)
[2023-12-11] MEDS: NOREPINEPHRINE BITARTRATE/D5W 4 MG/250 ML PLAST..BAG 14.625 MG IV (22:18)
[2023-12-11] MEDS: VANCOMYCIN 2,000 MG/400 ML PIGGYBACK 200 MG IV (22:29)
[2023-12-11 23:19] LABS: HCO3 ABG 17 mmol/L (23-27); PO2 ABG 144 mmHg (80-100); TCO2 ABG 18 mmol/L (23-27); pH ABG 7.17 (7.35-7.45)
[2023-12-11 23:20] LABS: Allen Test for ABG Passed? Yes, Passed; Blood Gas Collection Site Right Radial; Fractionated Inspired Oxygen 40; Oxygen Saturation ABG 99 % (95-100)
[2023-12-11] MEDS: CHLORHEXIDINE GLUCONATE 15 ML CUP PO (23:42)
[2023-12-11] MEDS: HYDROCORTISONE 100 MG/2 ML VIAL IV (23:44)
[2023-12-12] VITALS (65 sets, daily range): BP systolic 87–152; BP diastolic 50–67; PULSE 90–114; RESP 18–28; TEMP 36.2–36.8; O2SAT 93–100
[2023-12-12] MEDS: INSULIN LISPRO 100 UNIT/ML 3ML VIAL SUBCUT ×2 (02:10→09:16)
[2023-12-12 02:39] LABS: PTT Partial Thromboplastin Tim 198 SECONDS (25.1-36.5)
[2023-12-12] MEDS: ALBUTEROL 2.5 MG/3 ML NEB (ADULT) INH ×2 (03:27→05:25)
[2023-12-12 05:00] LABS: Hematocrit 29.8 % (36-46); Hemoglobin 9.8 g/dL (12.0-16.0); Mean Corpuscular HGB Conc 32.7 % (30-36); Mean Corpuscular Hemoglobin 27.8 PG (26-34); Mean Corpuscular Volume 84.9 fL (80-100); Platelet Count 327 X10^3/uL (150-400); Red Blood Cell Count 3.51 X10^6/uL (4.0-5.2); Red Cell Distribution Width 14.9 % (11.6-14.8); White Blood Cell Count 25.8 X10^3/uL (4.5-11.0)
[2023-12-12 05:03] LABS: Add Manual Diff / Slide Review YES
[2023-12-12 05:20] LABS: Alanine Aminotransferase 21 IU/L (<35); Albumin 3.2 g/dL (3.5-5.0); Alkaline Phosphatase 287 U/L (38-126); Aspartate Aminotransferase 34 IU/L (14-36); BUN Creatinine Ratio 33.7 (6-22); Bilirubin Total 0.5 mg/dL (0.2-1.3); Blood Urea Nitrogen 87 mg/dL (7-17); Calcium 8.6 mg/dL (8.4-10.2); Carbon Dioxide 13 mmol/L (22-32); Chloride 101 mmol/L (98-107); Estimated Glomerular Filt Rate 20 mL/min (>60); Globulin 3.3 g/dL (1.7-4.1); Glucose 268 mg/dL (80-110); HEMOLYSIS < 15 (0-50); Potassium 4.9 mmol/L (3.4-5.1); Sodium 128 mmol/L (137-145); Total Protein 6.5 g/dL (6.3-8.2)
[2023-12-12 05:22] LABS: Neutrophils Absolute Manual 22704 /uL (3000-5900); Total Cells Counted 100
[2023-12-12 05:23] LABS: RBC Morphology Normal Morphology
[2023-12-12] MEDS: NOREPINEPHRINE BITARTRATE/D5W 4 MG/250 ML PLAST..BAG 29.25 MG IV (05:43)
[2023-12-12 05:45] LABS: Allen Test for ABG Passed? Yes, Passed; Blood Gas Collection Site Right Radial; Fractionated Inspired Oxygen 30; HCO3 ABG 14 mmol/L (23-27); Oxygen Saturation ABG 95 % (95-100); PCO2 ABG 34.7 mmHg (35-45); PO2 ABG 86 mmHg (80-100); TCO2 ABG 15 mmol/L (23-27)
[2023-12-12 05:46] LABS: pH ABG 7.22 (7.35-7.45)
[2023-12-12] MEDS: CHLORHEXIDINE GLUCONATE 15 ML CUP PO ×2 (05:46→11:16)
[2023-12-12] MEDS: fentaNYL 1,000 MCG in DEXTROSE 5% IN WATER 230 ML 29.25 MCG IV ×2 (06:32→15:24)
[2023-12-12] MEDS: propofoL 1,000 MG/100 ML VIAL 14.625 MG IV ×2 (08:29→14:57)
[2023-12-12 09:07] LABS: PTT Partial Thromboplastin Tim 104 SECONDS (25.1-36.5)
[2023-12-12] MEDS: INSULIN GLARGINE 100 UNIT/ML 3ML PEN 30 UNIT SUBCUT (09:17)
[2023-12-12] MEDS: SODIUM CHLORIDE 0.9% FLUSH 10 ML IV (09:24)
[2023-12-12] MEDS: FAMOTIDINE 20 MG/2 ML VIAL IV (09:24)
[2023-12-12 10:11] LABS: Lactate (Lactic Acid) 0.8 mmol/L (0.7-2.1)
--- NOTE | 2023-12-12 10:47 | PM.PN.EICU ---
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 Patient Location: ICU Provider location (State): [place] Other participants/roles: Bedside RN, MDR team, patient Interval history: Remains intubated, on propofol and fentanyl gtt Heparin gtt resarting insulin gtt this am for rising BG and metabolic acidosis c/f DKA requiring low dose levophed MRSA screen neg Current Medications Current Medications Medications: Home Medications dulaglutide 3 mg/0.5 mL subcutaneous pen injector (Trulicity) 3 mg SUBCUT WEEKLY 12/11/23 [History Confirmed 12/11/23] hydrochlorothiazide 12.5 mg PO DAILY 12/11/23 [History Confirmed 12/11/23] insulin glargine 100 unit/mL (3 mL) subcutaneous pen (Lantus Solostar U-100 Insulin) 30 unit SUBCUT 3XD 12/11/23 [History Confirmed 12/11/23] lisinopril 40 mg tablet 40 mg PO DAILY 12/11/23 [History Confirmed 12/11/23] simvastatin 40 mg tablet 40 mg PO ONCE PM 12/11/23 [History Confirmed 12/11/23] Visit Medications (administered) Generic Name Dose Route Start Last Admin Trade Name Freq PRN Reason Stop Dose Admin Albuterol 2.5 mg 12/11/23 07:21 12/12/23 05:25 Albuterol 2.5 Mg/3 Ml Neb (Adult) INH 2.5 mg [id number] PRN Administration Shortness Of Breath Chlorhexidine Gluconate 15 ml 12/11/23 18:00 12/12/23 07:58 Chlorhexidine Gluconate 15 Ml Cup PO Not Given Q6HR SIMÓN Famotidine 20 mg 12/12/23 09:00 12/12/23 09:24 Famotidine 20 Mg/2 Ml Vial IV 20 mg DAILY SIMÓN Administration Hydrocortisone 100 mg 12/12/23 00:00 12/11/23 23:44 Hydrocortisone 100 Mg/2 Ml Vial IV 100 mg Q12HR SIMÓN Administration Sodium Chloride 500 mls @ 21 mls/hr 12/11/23 15:45 12/11/23 16:23 Normal Saline 0.9% IV 21 mls/hr CONT SIMÓN Administration Fentanyl 1,000 mcg/ Dextrose 250 mls @ 17.063 mls/hr 12/11/23 17:30 12/12/23 06:32 IV 1.2 mcg/kg/hr TITRATE SIMÓN 29.25 mls/hr Administration Protocol 0.7 MCG/KG/HR Midazolam HCl 50 mg/ Dextrose 50 mls @ 5 mls/hr 12/11/23 17:30 12/11/23 21:57 IV 0 mg/hr TITRATE SIMÓN 0 mls/hr Titration Protocol 5 MG/HR Propofol 1,000 mg in 100 mls @ 2.925 mls/hr 12/11/23 20:00 12/12/23 08:29 Propofol IV 25 mcg/kg/min TITRATE SIMÓN 14.625 mls/hr Administration Protocol 5 MCG/KG/MIN Heparin Sodium/Dextrose 25,000 unit in 500 mls @ 35.1 mls/hr 12/11/23 20:30 12/12/23 10:02 Heparin Drip IV 13 units/kg/hr CONT SIMÓN 25.35 mls/hr Titration Protocol 18 UNITS/KG/HR NOREPINEPHRINE BITARTRATE/D5W 4 mg in 250 mls @ 36.563 mls/hr 12/11/23 22:10 12/12/23 06:01 Levophed IV 0.06 mcg/kg/min TITRATE SIMÓN 21.938 mls/hr Titration Protocol 0.1 MCG/KG/MIN Lorazepam 0.5 mg 12/11/23 16:29 12/11/23 16:32 Lorazepam 0.5 Mg Tablet PO 0.5 mg Q4HR PRN Administration Anxiety Sodium Chloride 10 ml 12/11/23 21:00 12/12/23 09:24 Sodium Chloride 0.9% Flush IV 10 ml BID SIMÓN Administration Objective Ventilator Parameters: Ventilator Settings FiO2 30 RT Vent Frequency 20 Ventilator Tidal Volume 440 Exhaled Positive End Expiratory 5 Pressure Inspiratory Phase Time 0.75 I:E Ratio 1:3 Patient Position HOB >= 30 degrees Imaging Chest x-ray: Radiologist's impression: 12/10- diffuse opacities c/f infection or edema Labs 12/12/23 04:44 12/12/23 04:44 Labs: Laboratory Results - last 24 hr 12/11/23 12/11/23 12/11/23 08:36 13:05 14:18 WBC RBC Hgb Hct MCV MCH MCHC RDW Plt Count Neut % (Auto) Lymph % (Auto) [place] % (Auto) Eos % (Auto) Baso % (Auto) Lymph # (Auto) [place] # (Auto) Baso # (Auto) Total Counted Seg Neutrophils % Band Neutrophils % Lymphocytes % (Manual) Monocytes % (Manual) Metamyelocytes % Neutrophils # (Manual) RBC Morphology APTT Sample Site Nr ABG Sample Site Left radial ABG pH 7.20 L* ABG pCO2 43.5 ABG pO2 69 L ABG HCO3 17 L ABG Total CO2 18 L ABG O2 Saturation 89 L ABG Base Excess -11.0 L FiO2 21 Sodium 127 L Potassium 5.6 H Chloride 98 Carbon Dioxide 14 L BUN 78 H Creatinine 2.71 H Estimated GFR 19 L BUN/Creatinine Ratio 28.8 H Glucose 314 H Lactate Calcium 8.6 Total Bilirubin AST ALT Alkaline Phosphatase Troponin I 0.018 Total Protein Albumin Globulin Albumin/Globulin Ratio 12/11/23 12/11/23 12/11/23 16:45 17:02 19:36 WBC RBC Hgb Hct MCV MCH MCHC RDW Plt Count Neut % (Auto) Lymph % (Auto) [place] % (Auto) Eos % (Auto) Baso % (Auto) Lymph # (Auto) [place] # (Auto) Baso # (Auto) Total Counted Seg Neutrophils % Band Neutrophils % Lymphocytes % (Manual) Monocytes % (Manual) Metamyelocytes % Neutrophils # (Manual) RBC Morphology APTT Sample Site ABG Sample Site Right radial Right radial ABG pH 6.99 L* 7.13 L* ABG pCO2 97.7 H* 57.1 H ABG pO2 89 190 H ABG HCO3 24 19 L ABG Total CO2 27 21 L ABG O2 Saturation 89 L 98 ABG Base Excess -8.0 L -10.0 L FiO2 21 50 Sodium 137 D Potassium 3.6 D Chloride 114 H Carbon Dioxide 11 L BUN 59 H Creatinine 1.74 H Estimated GFR 33 L BUN/Creatinine Ratio 33.9 H Glucose 127 H D Lactate Calcium 5.9 L* Total Bilirubin AST ALT Alkaline Phosphatase Troponin I 0.016 Total Protein Albumin Globulin Albumin/Globulin Ratio 12/11/23 12/11/23 12/11/23 20:30 21:07 21:21 WBC RBC Hgb Hct MCV MCH MCHC RDW Plt Count Neut % (Auto) Lymph % (Auto) [place] % (Auto) Eos % (Auto) Baso % (Auto) Lymph # (Auto) [place] # (Auto) Baso # (Auto) Total Counted Seg Neutrophils % Band Neutrophils % Lymphocytes % (Manual) Monocytes % (Manual) Metamyelocytes % Neutrophils # (Manual) RBC Morphology APTT 36 Sample Site ABG Sample Site Right radial ABG pH 7.17 L* ABG pCO2 45.0 ABG pO2 144 H ABG HCO3 17 L ABG Total CO2 18 L ABG O2 Saturation 99 ABG Base Excess -12.0 L FiO2 40 Sodium 129 L Potassium 5.6 H D Chloride 101 Carbon Dioxide 16 L BUN 82 H Creatinine 2.58 H Estimated GFR 20 L BUN/Creatinine Ratio 31.8 H Glucose 216 H Lactate Calcium 8.4 Total Bilirubin AST ALT Alkaline Phosphatase Troponin I Total Protein Albumin Globulin Albumin/Globulin Ratio 12/12/23 12/12/23 12/12/23 02:09 04:44 04:46 WBC 25.8 H D RBC 3.51 L Hgb 9.8 L Hct 29.8 L MCV 84.9 MCH 27.8 MCHC 32.7 RDW 14.9 H Plt Count 327 Neut % (Auto) Not Reportable Lymph % (Auto) Not Reportable [place] % (Auto) Not Reportable Eos % (Auto) Not Reportable Baso % (Auto) Not Reportable Lymph # (Auto) Not Reportable [place] # (Auto) Not Reportable Baso # (Auto) Not Reportable Total Counted 100 Seg Neutrophils % 82.0 H Band Neutrophils % 6.0 Lymphocytes % (Manual) 3.0 L Monocytes % (Manual) 7.0 Metamyelocytes % 2.0 H Neutrophils # (Manual) 16520 H RBC Morphology Normal morphology APTT 198 H* D Sample Site ABG Sample Site Right radial ABG pH 7.22 L* ABG pCO2 34.7 L ABG pO2 86 ABG HCO3 14 L ABG Total CO2 15 L ABG O2 Saturation 95 ABG Base Excess -13.0 L FiO2 30 Sodium 128 L Potassium 4.9 Chloride 101 Carbon Dioxide 13 L BUN 87 H Creatinine 2.58 H Estimated GFR 20 L BUN/Creatinine Ratio 33.7 H Glucose 268 H Lactate Calcium 8.6 Total Bilirubin 0.5 AST 34 ALT 21 Alkaline Phosphatase 287 H Troponin I Total Protein 6.5 Albumin 3.2 L Globulin 3.3 Albumin/Globulin Ratio 1.0 12/12/23 12/12/23 08:34 09:24 WBC RBC Hgb Hct MCV MCH MCHC RDW Plt Count Neut % (Auto) Lymph % (Auto) [place] % (Auto) Eos % (Auto) Baso % (Auto) Lymph # (Auto) [place] # (Auto) Baso # (Auto) Total Counted Seg Neutrophils % Band Neutrophils % Lymphocytes % (Manual) Monocytes % (Manual) Metamyelocytes % Neutrophils # (Manual) RBC Morphology APTT 104 H* D Sample Site ABG Sample Site ABG pH ABG pCO2 ABG pO2 ABG HCO3 ABG Total CO2 ABG O2 Saturation ABG Base Excess FiO2 Sodium Potassium Chloride Carbon Dioxide BUN Creatinine Estimated GFR BUN/Creatinine Ratio Glucose Lactate 0.8 Calcium Total Bilirubin AST ALT Alkaline Phosphatase Troponin I Total Protein Albumin Globulin Albumin/Globulin Ratio Exam Vital Signs (past 8 hours): - 12/12/23 03:00 12/12/23 03:00 12/12/23 03:00 Temperature Pulse Rate 91 H Respiratory Rate 24 Blood Pressure 102/51 L Pulse Oximetry 98 Oxygen Delivery Method Mechanical Ventilation Oxygen Flow Rate 0 Fraction of Inspired Oxygen 12/12/23 03:30 12/12/23 03:30 12/12/23 03:45 Temperature Pulse Rate 101 H 99 H Respiratory Rate 24 24 Blood Pressure 98/57 L Pulse Oximetry 95 98 Oxygen Delivery Method Oxygen Flow Rate Fraction of Inspired Oxygen 12/12/23 03:45 12/12/23 04:00 12/12/23 04:00 Temperature 97.3 F L Pulse Rate 104 H Respiratory Rate 24 Blood Pressure 87/50 L 129/61 Pulse Oximetry 98 Oxygen Delivery Method Oxygen Flow Rate Fraction of Inspired Oxygen 12/12/23 04:15 12/12/23 04:15 12/12/23 04:30 Temperature Pulse Rate 104 H 112 H Respiratory Rate 24 28 H Blood Pressure 90/55 L Pulse Oximetry 98 100 Oxygen Delivery Method Oxygen Flow Rate 0 Fraction of Inspired Oxygen 12/12/23 04:30 12/12/23 04:45 12/12/23 04:45 Temperature Pulse Rate 107 H Respiratory Rate 26 H Blood Pressure 125/58 L 127/60 Pulse Oximetry 96 Oxygen Delivery Method Oxygen Flow Rate Fraction of Inspired Oxygen 12/12/23 05:00 12/12/23 05:00 12/12/23 05:15 Temperature Pulse Rate 105 H Respiratory Rate 25 H Blood Pressure 123/58 L 120/57 L Pulse Oximetry 95 Oxygen Delivery Method Oxygen Flow Rate Fraction of Inspired Oxygen 12/12/23 05:15 12/12/23 05:25 12/12/23 05:30 Temperature Pulse Rate 105 H 106 H 114 H Respiratory Rate 21 20 20 Blood Pressure Pulse Oximetry 95 95 100 Oxygen Delivery Method Mechanical Ventilation Oxygen Flow Rate 0 Fraction of Inspired Oxygen 30 12/12/23 05:30 12/12/23 05:45 12/12/23 05:45 Temperature Pulse Rate 105 H Respiratory Rate 22 Blood Pressure 129/60 115/58 L Pulse Oximetry 93 Oxygen Delivery Method Oxygen Flow Rate Fraction of Inspired Oxygen 12/12/23 06:00 12/12/23 06:00 12/12/23 06:15 Temperature Pulse Rate 104 H 104 H Respiratory Rate 20 20 Blood Pressure 113/53 L Pulse Oximetry 93 93 Oxygen Delivery Method Oxygen Flow Rate 0 Fraction of Inspired Oxygen 12/12/23 06:15 12/12/23 06:30 12/12/23 06:30 Temperature Pulse Rate 104 H Respiratory Rate 20 Blood Pressure 109/55 L 111/56 L Pulse Oximetry 94 Oxygen Delivery Method Oxygen Flow Rate Fraction of Inspired Oxygen 12/12/23 06:45 12/12/23 06:45 12/12/23 07:00 Temperature Pulse Rate 103 H Respiratory Rate 20 Blood Pressure 111/56 L Pulse Oximetry 94 Oxygen Delivery Method Mechanical Ventilation Oxygen Flow Rate Fraction of Inspired Oxygen 12/12/23 07:00 12/12/23 07:00 12/12/23 07:15 Temperature Pulse Rate 103 H 102 H Respiratory Rate 20 20 Blood Pressure 116/54 L Pulse Oximetry 95 96 Oxygen Delivery Method Oxygen Flow Rate Fraction of Inspired Oxygen 12/12/23 07:15 12/12/23 07:30 12/12/23 07:30 Temperature Pulse Rate 102 H Respiratory Rate 20 Blood Pressure 116/55 L 118/56 L Pulse Oximetry 97 Oxygen Delivery Method Oxygen Flow Rate Fraction of Inspired Oxygen 12/12/23 07:45 12/12/23 07:45 12/12/23 08:00 Temperature Pulse Rate 101 H 101 H Respiratory Rate 20 20 Blood Pressure 117/56 L Pulse Oximetry 97 97 Oxygen Delivery Method Oxygen Flow Rate Fraction of Inspired Oxygen 12/12/23 08:00 12/12/23 08:15 12/12/23 08:15 Temperature Pulse Rate 101 H Respiratory Rate 20 Blood Pressure 117/56 L 121/58 L Pulse Oximetry 97 Oxygen Delivery Method Oxygen Flow Rate Fraction of Inspired Oxygen 12/12/23 08:30 12/12/23 08:30 12/12/23 08:45 Temperature Pulse Rate 100 H 100 H Respiratory Rate 20 20 Blood Pressure 121/58 L Pulse Oximetry 97 97 Oxygen Delivery Method Oxygen Flow Rate Fraction of Inspired Oxygen 12/12/23 08:45 12/12/23 09:00 12/12/23 09:00 Temperature Pulse Rate 100 H Respiratory Rate 20 Blood Pressure 122/59 L 124/58 L Pulse Oximetry 97 Oxygen Delivery Method Oxygen Flow Rate Fraction of Inspired Oxygen 12/12/23 09:15 12/12/23 09:15 12/12/23 09:30 Temperature Pulse Rate 99 H Respiratory Rate 20 Blood Pressure 127/61 132/62 Pulse Oximetry 97 Oxygen Delivery Method Oxygen Flow Rate Fraction of Inspired Oxygen 12/12/23 09:30 12/12/23 09:45 12/12/23 09:45 Temperature Pulse Rate 99 H 99 H Respiratory Rate 20 20 Blood Pressure 133/63 Pulse Oximetry 97 97 Oxygen Delivery Method Oxygen Flow Rate Fraction of Inspired Oxygen 12/12/23 10:00 12/12/23 10:00 12/12/23 10:15 Temperature 97.8 F Pulse Rate 98 H 98 H Respiratory Rate 20 20 Blood Pressure 137/65 Pulse Oximetry 97 96 Oxygen Delivery Method Oxygen Flow Rate Fraction of Inspired Oxygen 12/12/23 10:15 12/12/23 10:30 12/12/23 10:30 Temperature Pulse Rate 98 H Respiratory Rate 20 Blood Pressure 138/65 140/65 Pulse Oximetry 97 Oxygen Delivery Method Oxygen Flow Rate Fraction of Inspired Oxygen Fraction of Inspired Oxygen 30 SaO2/FiO2 Ratio 316 Oxygen Delivery Method Mechanical Ventilation Oxygen Flow Rate 0 Narrative Exam Narrative: lying in bed, intubated, sedated, no acute distress Quality TeleICU VTE Deep Vein Thrombosis/Pulmonary Embolism Present on Admission: No Assessment & Plan Assessment and plan (1) Hyponatremia: Status: Acute (2) ROMAN (acute kidney injury): Status: Acute (3) Acute viral bronchitis: Status: Acute (4) Acute hypoxic respiratory failure: Status: Acute (5) Diabetes: Status: Acute (6) DKA (diabetic ketoacidosis): Status: Acute Assessment & Plan narrative: Assessment: Acute encephalopathy likely due to 2/2 hypercapnia and septic shock, pneumonia currently sedated with propofol, fentanyl Daily SAT trending abg, she is no longer hypercapenic Acute hypercapnic resp failure likely due to combination of co 2 retention/asthma, PNA and AMS Head CT neg Started on heparin gtt empirically yesterday out of concern for PE , has not been able to get CTA to r/o PE reassuringly DVT US neg and TTE shows global hypokinesis EF 35% and RAP 8, based in IVC morphology- Acute hypoxic resp failure 2/2 viral PNA with superimposed bacterial infection in the sitting of asthma, ABG this am improved, fio2 down to 30% hypercarbia resolved Continue vent , cont albuterol, steroid, broad spectrum Ab, f/u resp & blood cx. F/U CT chest W/o contrast Septic shock 2/2 PNA, requiring levophed, keep map >65 will send blood cultures today, do not see pending follow up resp cx MRSA screen neg Trend procalcitonin DKA , continue IV insulin and replacement per protocol ROMAN on CKD, baseline Cr 1.5, Cr improving, avoid nephrotoxic agents New Dx of systolic HF, initally received fluid then lasix, hold off BB, will hold further lasix for now as RAP on echo yesterday 8 and IVC <2 having good UOP but may be losing volume given she is likely back in DKA wtih hyperglycemia and metabolic acidosis after insulin gtt stopped will give albumin bolus x 1 this am given metabolic acidosis and DKA. restart insulin gtt as above holding antihypertensives hyponatremia likely in setting of infection, trend GI & VTE ppx Full code Discussed the plan with MD, RT & RN Time Spent With Patient Time with patient: 30 to 49 minutes with 50% spent counseling/coordinating care
[2023-12-12] MEDS: INSULIN DRIP PREMIX 100 UNIT/100 ML PLAST..BAG 15 UNIT IV (11:11)
[2023-12-12] MEDS: HYDROCORTISONE 100 MG/2 ML VIAL IV (11:16)
[2023-12-12 12:22] LABS: Procalcitonin 1.99 ng/mL (<0.5)
--- NOTE | 2023-12-12 13:59 | DIET.CONS2 ---
Dietary Inpatient Consultation Note Admission Date: 12/11/2023 04:50 Pt intubated yesterday evening. Nutrition consulted for pt on vent and npo status. Per RN and healthcare team rounds, pt is transferring hospitals. Diet: 12/11/23 17:29 NPO Diet Diet Modifications: NPO Type: Strict Nutrition Percent Meal Consumed pt npo 12/11/23 18:00 Percent Meal Consumed 75% 12/11/23 08:00 Electronically Signed by: Geno Becker 12/12/23 13:59 Clinical Dietitian [address] [id number]
[2023-12-12] MEDS: HEPARIN DRIP 25,000 UNIT/500 ML IV.SOLN 25.35 UNIT IV (14:13)
--- NOTE | 2023-12-12 15:11 | P.DS_ITS ---
History of Present Illness History of Present Illness Chief complaint: roman, astma exacerbation, hyponatremia Narrative: 63 y/o with PMH of asthma, DM, HTN and HLD, seen in the ED of [facility]. short of breath, febrile, dehydrated. Workup revealed likely viral bronchitis, hypoxia requiring few liters of oxygen and ROMAN. Due to lack of beds patient transferred to [facility] as a direct admission. Patient was seen after admission by overnight provider. She has been having mild dyspnea for about the past week. Also with productive cough, rhinorrhea. She denies chest pain. She felt like she couldn't breathe yesterday and came in to the OSH ER. In review of labs from outside hospital, patient with acidosis, elevated anion gap and hyperglycemia. WBC was 23 and Cr was 2.9 at OSH. AG was 19, with a bicarb of <15, lactate was normal. This morning after some fluids labs redrawn after arrival which showed borderline DKA labs. Cr improved slightly to 2.7, WBC improved, but gap of 15 and CO2 of 14. She had gotten lantus this morning by the time labs were drawn, IV fluids had been stopped due to worsening dyspnea (with proBNP of >8000), and was given furosemide. Decision made to repeat labs in 4 hours (as opposed to starting insulin infusion for borderline DKA). Repeat labs remained borderline with CO2 of 14 and mildly elevated anion gap. Remains in sinus tachycardia in the 110s-130s. Had a fall trying to change underwear in the bathroom by herself without any injuries noted after. Subsequently transferred to the ICU for insulin infusion given borderline DKA not improved after subcutaneous insulin and underlying sepsis. Discharge Providers Provider Date of admission: 12/11/23 04:50 Discharge Date: 12/12/23 Primary care physician: Mindi Suarez MD Consults: 12/11/23 17:27 Consult to Dietitian, Adult Routine Comment: Reason For Exam: Patient on Ventilator and NPO 12/11/23 17:29 Consult to Tele-american history professor Routine Comment: Consulting Provider: [employer] Reason for consultation: [employer] Discharge provider: Gilberto Hirsch DO Summary Hospital Course Discharge Diagnosis: # Sepsis with ROMAN on CKD, Acute hypoxic respiratory failure secondary to probable bacterial pneumonia after entero/rhinovirus infections - SOFA score of >2 on presentation with respriatory failure and ROMAN. Baseline cr. reportedly around 1.5. - some improvement with hypoxia with diuresis, proBNP >8000. Ordered for TTE. Patient sinus tachycardia in the 110s-130s currently. - hold IV fluids after diuresis and worsening respiratory status after given on presentation - Continue ceftriaxone and azithromycin for presumed bacterial pneumonia after viral pneumonia given WBC >20K at OSH. - prednisone of asthma exacerbation as well - DKA also likely contributing to presentation. - UA negative for infection. At approximately 1653 today notified of a significant patient change. Patient previously complaining of worsening dyspnea and anxiety. She had been off of O2 briefly. Echo had come back at 30-35% after initial note written earlier today. She was given 0.5 mg of ativan at that time. At my evaluation around 1655 patient was not responsive, initially O2 saturations were >90% but after a few minutes she dipped down into the mid 80s. Placed on oxygen mask. She was not responsive to sternal rub, made no sounds, nor opened her eyes. She was given 2 doses of flumazenil 0.2 mg without response. ABG obtained showed a pH of 6.9 with a PCO2 of >90. Earlier in the day pH was 7.2 and PCO2 was near 40. Anesthesiology was not available, ER provider performed intubation in the ICU. Bedside POCUS shows easily collapsible IVC. 1L IV fluid bolus given. Initially started on fentanyl and versed for sedation with EF of 30-35%. Tele american history professor recommended change to propofol. Patient also became hypotensive on sedation, requiring initiation of levophed briefly and central line placement. Discussed over the phone with her and updated him. - CT chest/abd/pelvis with bibasilar consolidations and diffuse centrilobular nodules concerning for infection - broaden to cefepime and vancomycin - sputum culture ordered - wean levophed as tolerated - CT chest / abd / pelvis w/o contrast ordered - heparin gtt for possible PE, consider CTA depending on renal status - on insulin drip - diuresis only as needed. Patient was given 1L fluid bolus during rapid response as bedside POCUS consistent more with hypovolemia. - appreciate tele-american history professor consultation. # Asthma with exacerbation - continue steroids as noted above, and albuterol as needed. # DKA, present on admission - patient with AG of 19 at OSH with borderline acidosis (bicarb around 15) and elevated glucose. Trace ketones in urine. Was not started on insulin until after arrival this morning. Repeat labs drawn again showed borderline DKA with bicarb of 14, AG of 15, and elevated glucose though improving creatinine. - initially on insulin drip, then off once gap closed, now back on due to ABG showing recurrent acidosis # HTN - patient is hypertensive on presentation, will diurese as needed with furosemide. Hold lisinopril in the setting of ROMAN. Hospital Course: Admitted from [facility] for DKA, ROMAN on CKD and possible PNA. Unclear how much IVF was given there. Placed on rocephin/azithro. Was initially doing well and weaned off insulin drip to lantus, then developed sudden worsening SOB, hypoxia and hypercapnea. Intubated and sedated, then required pressors for hypotension. Found on echo to have EF 30-35%. CT showed PNA so broadened to cefepime and vanco. Vanc stopped after MRSA screen negative. Given IV lasix with initial improvement in Cr to 1.7. Then ROMAN worsened to Cr 2.5, ABG showed metabolic acidosis so insulin drip restarted for DKA. She was transferred out to [facility] [place] and accepted by american history professor Dr. Samuel. Exam Vital Signs (past 8 hours): - 12/12/23 07:15 12/12/23 07:15 12/12/23 07:30 Temperature Pulse Rate 102 H 102 H Respiratory Rate 20 20 Blood Pressure 116/55 L Pulse Oximetry 96 97 Oxygen Delivery Method 12/12/23 07:30 12/12/23 07:45 12/12/23 07:45 Temperature Pulse Rate 101 H Respiratory Rate 20 Blood Pressure 118/56 L 117/56 L Pulse Oximetry 97 Oxygen Delivery Method 12/12/23 08:00 12/12/23 08:00 12/12/23 08:15 Temperature Pulse Rate 101 H 101 H Respiratory Rate 20 20 Blood Pressure 117/56 L Pulse Oximetry 97 97 Oxygen Delivery Method 12/12/23 08:15 12/12/23 08:30 12/12/23 08:30 Temperature Pulse Rate 100 H Respiratory Rate 20 Blood Pressure 121/58 L 121/58 L Pulse Oximetry 97 Oxygen Delivery Method 12/12/23 08:45 12/12/23 08:45 12/12/23 09:00 Temperature Pulse Rate 100 H 100 H Respiratory Rate 20 20 Blood Pressure 122/59 L Pulse Oximetry 97 97 Oxygen Delivery Method 12/12/23 09:00 12/12/23 09:15 12/12/23 09:15 Temperature Pulse Rate 99 H Respiratory Rate 20 Blood Pressure 124/58 L 127/61 Pulse Oximetry 97 Oxygen Delivery Method 12/12/23 09:30 12/12/23 09:30 12/12/23 09:45 Temperature Pulse Rate 99 H 99 H Respiratory Rate 20 20 Blood Pressure 132/62 Pulse Oximetry 97 97 Oxygen Delivery Method 12/12/23 09:45 12/12/23 10:00 12/12/23 10:00 Temperature 97.8 F Pulse Rate 98 H Respiratory Rate 20 Blood Pressure 133/63 137/65 Pulse Oximetry 97 Oxygen Delivery Method 12/12/23 10:15 12/12/23 10:15 12/12/23 10:30 Temperature Pulse Rate 98 H 98 H Respiratory Rate 20 20 Blood Pressure 138/65 Pulse Oximetry 96 97 Oxygen Delivery Method 12/12/23 10:30 12/12/23 10:45 12/12/23 10:45 Temperature Pulse Rate 97 H Respiratory Rate 20 Blood Pressure 140/65 144/55 H Pulse Oximetry 97 Oxygen Delivery Method 12/12/23 11:00 12/12/23 11:00 12/12/23 11:00 Temperature Pulse Rate 97 H Respiratory Rate 20 Blood Pressure 142/65 H Pulse Oximetry 97 Oxygen Delivery Method Mechanical Ventilation 12/12/23 11:15 12/12/23 11:15 12/12/23 11:30 Temperature Pulse Rate 97 H 96 H Respiratory Rate 20 20 Blood Pressure 146/65 H Pulse Oximetry 98 97 Oxygen Delivery Method 12/12/23 11:30 12/12/23 11:45 12/12/23 11:45 Temperature Pulse Rate 97 H Respiratory Rate 20 Blood Pressure 139/64 142/65 H Pulse Oximetry 97 Oxygen Delivery Method 12/12/23 12:00 12/12/23 12:00 12/12/23 12:15 Temperature Pulse Rate 97 H Respiratory Rate 20 Blood Pressure 144/64 H 147/65 H Pulse Oximetry 97 Oxygen Delivery Method 12/12/23 12:15 12/12/23 12:30 12/12/23 12:30 Temperature Pulse Rate 97 H 96 H Respiratory Rate 20 20 Blood Pressure 147/65 H Pulse Oximetry 98 98 Oxygen Delivery Method 12/12/23 12:45 12/12/23 12:45 12/12/23 13:00 Temperature Pulse Rate 96 H 96 H Respiratory Rate 20 20 Blood Pressure 149/66 H Pulse Oximetry 98 98 Oxygen Delivery Method 12/12/23 13:00 12/12/23 13:15 12/12/23 13:15 Temperature 98.2 F Pulse Rate 96 H Respiratory Rate 20 Blood Pressure 151/67 H 151/65 H Pulse Oximetry 98 Oxygen Delivery Method 12/12/23 13:30 12/12/23 13:30 12/12/23 13:45 Temperature Pulse Rate 94 H 95 H Respiratory Rate 20 20 Blood Pressure 150/66 H Pulse Oximetry 98 98 Oxygen Delivery Method 12/12/23 13:45 12/12/23 14:00 12/12/23 14:00 Temperature Pulse Rate 95 H Respiratory Rate 20 Blood Pressure 152/67 H 151/67 H Pulse Oximetry 98 Oxygen Delivery Method Fraction of Inspired Oxygen 30 SaO2/FiO2 Ratio 316 Oxygen Delivery Method Mechanical Ventilation Oxygen Flow Rate 0 Narrative Exam Narrative: General:?intubated and sedated, obese Chest:? Normal AP diameter and contour without kyphoscoliosis, no tachypnea, equal chest rise bilaterally. Lungs:? bilateral upper airway expiratory wheezing, no obvious crackles. Cardio:?tachycardic, regular, no m/r/g Abdomen: S NT ND. Extremities: Trace bilateral LE edema, no clubbing or joint effusions Neuro:? unable to assess Objective Labs 12/12/23 04:44 12/12/23 04:44 Labs: Laboratory Results - last 24 hr 12/11/23 12/11/23 12/11/23 16:45 17:02 19:36 WBC RBC Hgb Hct MCV MCH MCHC RDW Plt Count Neut % (Auto) Lymph % (Auto) Barren % (Auto) Eos % (Auto) Baso % (Auto) Lymph # (Auto) Barren # (Auto) Baso # (Auto) Total Counted Seg Neutrophils % Band Neutrophils % Lymphocytes % (Manual) Monocytes % (Manual) Metamyelocytes % Neutrophils # (Manual) RBC Morphology APTT ABG Sample Site Right radial Right radial ABG pH 6.99 L* 7.13 L* ABG pCO2 97.7 H* 57.1 H ABG pO2 89 190 H ABG HCO3 24 19 L ABG Total CO2 27 21 L ABG O2 Saturation 89 L 98 ABG Base Excess -8.0 L -10.0 L FiO2 21 50 Sodium 137 D Potassium 3.6 D Chloride 114 H Carbon Dioxide 11 L BUN 59 H Creatinine 1.74 H Estimated GFR 33 L BUN/Creatinine Ratio 33.9 H Glucose 127 H D Lactate Calcium 5.9 L* Total Bilirubin AST ALT Alkaline Phosphatase Troponin I 0.016 Total Protein Albumin Globulin Albumin/Globulin Ratio Procalcitonin 12/11/23 12/11/23 12/11/23 20:30 21:07 21:21 WBC RBC Hgb Hct MCV MCH MCHC RDW Plt Count Neut % (Auto) Lymph % (Auto) Barren % (Auto) Eos % (Auto) Baso % (Auto) Lymph # (Auto) Barren # (Auto) Baso # (Auto) Total Counted Seg Neutrophils % Band Neutrophils % Lymphocytes % (Manual) Monocytes % (Manual) Metamyelocytes % Neutrophils # (Manual) RBC Morphology APTT 36 ABG Sample Site Right radial ABG pH 7.17 L* ABG pCO2 45.0 ABG pO2 144 H ABG HCO3 17 L ABG Total CO2 18 L ABG O2 Saturation 99 ABG Base Excess -12.0 L FiO2 40 Sodium 129 L Potassium 5.6 H D Chloride 101 Carbon Dioxide 16 L BUN 82 H Creatinine 2.58 H Estimated GFR 20 L BUN/Creatinine Ratio 31.8 H Glucose 216 H Lactate Calcium 8.4 Total Bilirubin AST ALT Alkaline Phosphatase Troponin I Total Protein Albumin Globulin Albumin/Globulin Ratio Procalcitonin 12/12/23 12/12/23 12/12/23 02:09 04:44 04:46 WBC 25.8 H D RBC 3.51 L Hgb 9.8 L Hct 29.8 L MCV 84.9 MCH 27.8 MCHC 32.7 RDW 14.9 H Plt Count 327 Neut % (Auto) Not Reportable Lymph % (Auto) Not Reportable Barren % (Auto) Not Reportable Eos % (Auto) Not Reportable Baso % (Auto) Not Reportable Lymph # (Auto) Not Reportable Barren # (Auto) Not Reportable Baso # (Auto) Not Reportable Total Counted 100 Seg Neutrophils % 82.0 H Band Neutrophils % 6.0 Lymphocytes % (Manual) 3.0 L Monocytes % (Manual) 7.0 Metamyelocytes % 2.0 H Neutrophils # (Manual) 72115 H RBC Morphology Normal morphology APTT 198 H* D ABG Sample Site Right radial ABG pH 7.22 L* ABG pCO2 34.7 L ABG pO2 86 ABG HCO3 14 L ABG Total CO2 15 L ABG O2 Saturation 95 ABG Base Excess -13.0 L FiO2 30 Sodium 128 L Potassium 4.9 Chloride 101 Carbon Dioxide 13 L BUN 87 H Creatinine 2.58 H Estimated GFR 20 L BUN/Creatinine Ratio 33.7 H Glucose 268 H Lactate Calcium 8.6 Total Bilirubin 0.5 AST 34 ALT 21 Alkaline Phosphatase 287 H Troponin I Total Protein 6.5 Albumin 3.2 L Globulin 3.3 Albumin/Globulin Ratio 1.0 Procalcitonin 12/12/23 12/12/23 12/12/23 08:34 09:24 11:29 WBC RBC Hgb Hct MCV MCH MCHC RDW Plt Count Neut % (Auto) Lymph % (Auto) Barren % (Auto) Eos % (Auto) Baso % (Auto) Lymph # (Auto) Barren # (Auto) Baso # (Auto) Total Counted Seg Neutrophils % Band Neutrophils % Lymphocytes % (Manual) Monocytes % (Manual) Metamyelocytes % Neutrophils # (Manual) RBC Morphology APTT 104 H* D ABG Sample Site ABG pH ABG pCO2 ABG pO2 ABG HCO3 ABG Total CO2 ABG O2 Saturation ABG Base Excess FiO2 Sodium Potassium Chloride Carbon Dioxide BUN Creatinine Estimated GFR BUN/Creatinine Ratio Glucose Lactate 0.8 Calcium Total Bilirubin AST ALT Alkaline Phosphatase Troponin I Total Protein Albumin Globulin Albumin/Globulin Ratio Procalcitonin 1.99 H [facility] Medical History HLD (hyperlipidemia) Diabetes HTN (hypertension) CKD (chronic kidney disease) Social History household members: spouse Smoking Status: Former smoker alcohol intake: current Discharge Plan Discharge Plan Patient Disposition: [facility] Other facility: [facility] [place] Visit Report/Discharge Packet Stand Alone Forms: Patient Portal/API, Stroke Signs & Symptoms Discharge Data Primary Care Provider: Mindi Suarez VTE Deep Vein Thrombosis/Pulmonary Embolism Present on Admission: No
--- NOTE | 2023-12-12 15:15 | CM.DPC ---
DCP Hospital Transfer Per MD, pt had to be intubated last night for respiratory failure and to protect her airways and now septic with heart failure and on insulin drip and has been accepted at [facility] at the [place] location and ALS transport scheduled for 1529 for higher level of care needs. SHIREEN Vaz
[2023-12-12] MEDS: NOREPINEPHRINE BITARTRATE/D5W 4 MG/250 ML PLAST..BAG 14.625 MG IV (15:43)
[2023-12-12] MEDS: INSULIN DRIP PREMIX 100 UNIT/100 ML PLAST..BAG 10 UNIT IV (15:52)
--- NOTE | 2023-12-12 16:47 | PC.NURSE ---
1447 Pt being transfered to [facility] ICU bed 3119 Room 3 [place], report called to nurse accepting care. Vent settings FiO2 30% TV 440 RR 20 PEEP 5 sats 95%. Transported with restraints and kauffman in place, Prop, Fentanyl, Norepi, Heparin, and Insulin infusing as noted in emar, last BG 228 at time of transport. Phillip took all of pt belonging with him including pt earrings and wedding set. No further pt contact at this time.
[2023-12-12 19:00] LABS: PTT Partial Thromboplastin Tim 73 SECONDS (25.1-36.5)
== END 2023-12-12 16:47 | disposition short-term general hospital (02) | DRG 871 ==
PROVIDERS: Anesthesiology Critical Care Medicine; Internal Medicine; Internal Medicine Critical Care Medicine; Student in an Organized Health Care Education/Training Program; Admitting Provider Internal Medicine; PCP Family Medicine; Referring Provider Internal Medicine; Visit Provider Internal Medicine
DX: A41.9 Sepsis, unspecified organism (principal); E11.10 Type 2 diabetes mellitus with ketoacidosis without coma; J96.01 Acute respiratory failure with hypoxia; R65.21 Severe sepsis with septic shock; J96.02 Acute respiratory failure with hypercapnia; G93.41 Metabolic encephalopathy; J15.9 Unspecified bacterial pneumonia; E87.1 Hypo-osmolality and hyponatremia; J45.901 Unspecified asthma with (acute) exacerbation; E11.22 Type 2 diabetes mellitus with diabetic chronic kidney disease; I12.9 Hypertensive chronic kidney disease with stage 1 through stage 4 chronic kidney disease, or unspecified chronic kidney disease; N18.9 Chronic kidney disease, unspecified; B97.10 Unspecified enterovirus as the cause of diseases classified elsewhere; Z79.4 Long term (current) use of insulin; Z79.85 Long-term (current) use of injectable non-insulin antidiabetic drugs; Z87.891 Personal history of nicotine dependence
CPT/HCPCS: 36415; 36592; 36600; 70450; 71045; 71250; 74176; 80048; 80053; 81001; 82805; 82962; 83605; 83735; 83880; 84100; 84145; 84484; 85007; 85025; 85730; 87040; 87070; 87205; 87797; 93005; 93010; 93306; 93971; 94002; 94003; 94640; 94799; J0330; J0692; J0696; J1644; J1720; J1815; J1940; J2250; J2704; J3010; J7050; J7613

== ENCOUNTER 2023-12-28 11:01 | Emergency (ER) | payer OTHER, SELFPAY ==
[2023-12-11 07:56] VITALS: BMI 36.8
[2023-12-12 13:00] VITALS: PULSE 100; RESP 20; O2SAT 96
[2023-12-28] VITALS (49 sets, daily range): BP systolic 96–140; BP diastolic 51–81; PULSE 87–105; RESP 10–28; TEMP 35.8–36.6; O2SAT 98–100; BMI 35.2
--- NOTE | 2023-12-28 11:31 | DI.RAD.S_ITS ---
PROCEDURE: XR CHEST 1V INDICATIONS: suspected sepsis TECHNIQUE: One view of the chest was acquired. COMPARISON: [facility], [place], XR CHEST 1V, 12/11/2023, 20:03. FINDINGS: Surgical changes and devices: None. Lungs and pleura: Lungs are clear. No pleural effusions or pneumothorax. Mediastinum: Mediastinal contours appear normal. Heart size is normal. Bones and chest wall: No suspicious bony lesions. Overlying soft tissues appear unremarkable. IMPRESSION: No acute cardiopulmonary abnormality is seen. Approved by: Diana Blackmon M.D.,Ph.D. on 12/28/2023 at 12:01
[2023-12-28 11:41] LABS: Add Manual Diff / Slide Review NO; Basophils Absolute Auto 100 /uL (0-100); Basophils Percent Auto 0.8 % (0-2); Eosinophils Absolute Auto 100 /uL (0-450); Eosinophils Percent Auto 1.7 % (2-4); Hematocrit 25.9 % (36-46); Hemoglobin 8.7 g/dL (12.0-16.0); Lymphocytes Absolute Auto 1300 /uL (1100-4500); Lymphocytes Percent Auto 16.3 % (25-40); Mean Corpuscular HGB Conc 33.6 % (30-36); Mean Corpuscular Hemoglobin 28.5 PG (26-34); Mean Corpuscular Volume 84.7 fL (80-100); Monocytes Absolute Auto 500 /uL (0-900); Monocytes Percent Auto 5.7 % (3-14); Neutrophils Absolute Auto 6100 /uL (1500-7000); Neutrophils Percent Auto 75.5 % (50-75); Platelet Count 193 X10^3/uL (150-400); Red Blood Cell Count 3.06 X10^6/uL (4.0-5.2); Red Cell Distribution Width 16.6 % (11.6-14.8); White Blood Cell Count 8.1 X10^3/uL (4.5-11.0)
[2023-12-28 11:47] LABS: INR 1.5 (0.9-1.3); Prothrombin Time 17.2 SECONDS (9.4-12.5)
[2023-12-28 11:48] LABS: Appearance Urine UA Turbid; Color Urine UA RED; Protein Urine UA 3+ (Negative); Specific Gravity Urine UA 1.015 (1.000-1.035)
[2023-12-28 11:49] LABS: Bilirubin Urine UA Negative (NEGATIVE); Glucose Urine UA TRACE g/dL (Negative); Ketones Urine UA 1+ (NEGATIVE); Leukocyte Esterase Urine UA 2+ (NEGATIVE); Nitrite Urine UA NEGATIVE (Negative); Occult Blood Urine UA 3+ (Negative); RBC Urine >100/HPF (0-5/HPF); Urine Volume 5; WBC Urine 5-10/HPF (0-5/HPF)
[2023-12-28 11:50] LABS: PTT Partial Thromboplastin Tim 46 SECONDS (25.1-36.5)
[2023-12-28 11:50] LABS: Bacteria Urine None Seen; Culture Indicated Urine Specimen Cultured; Squamous Epithelial Cell Urine 0-1 /HPF (0-5/HPF)
--- NOTE | 2023-12-28 11:53 | ED.FEMALEGU ---
HPI - Female Genitourinary <Brice Becerra MD - Last Filed: 12/28/23 22:44> General Chief complaint: Urogenital-Female Stated complaint: Diff urinating, burning Time Seen by Provider: 12/28/23 11:53 Source: patient Mode of arrival: Family Vehicle History of Present Illness HPI Narrative: 63-year-old female complains of painful urination, inability to urinate. Recent complex medical history included ICU admission here with reactive airways in rhinovirus illness, progression to intubation 510 , transfer to [facility], discharged on 12/21/2023 off of oxygen, not taking any current antibiotics, had changes in her medications including insulin regimen changes. No further shortness of breath or other cough. Has some urinary symptoms, believes she probably had a urinary catheter during the hospital stay. No indwelling Gutierrez catheter on discharge from the hospital. Related Data Home Medications Medication Instructions Recorded Confirmed dulaglutide 3 mg/0.5 mL 3 mg SUBCUT WEEKLY 12/11/23 12/11/23 subcutaneous pen injector (Trulicity) hydrochlorothiazide 12.5 mg PO DAILY 12/11/23 12/11/23 insulin glargine 100 unit/mL (3 30 unit SUBCUT 3XD 12/11/23 12/11/23 mL) subcutaneous pen (Lantus Solostar U-100 Insulin) lisinopril 40 mg tablet 40 mg PO DAILY 12/11/23 12/11/23 simvastatin 40 mg tablet 40 mg PO ONCE PM 12/11/23 12/11/23 Allergies Allergy/AdvReac Type Severity Reaction Status Date / Time No Known Drug Allergies Allergy Verified 12/28/23 11:14 Patient History <Brice Becerra MD - Last Filed: 12/28/23 22:44> Medical History HLD (hyperlipidemia) Diabetes HTN (hypertension) CKD (chronic kidney disease) tobacco type: cigarettes alcohol intake frequency: holidays/special occasions only Substance Use Type: does not use Exam <Brice Becerra MD - Last Filed: 12/28/23 22:44> Narrative Exam Narrative: GENERAL: Well-developed patient, in mild distress. HEAD: Atraumatic. Normocephalic. EYES: Pupils equal round and reactive. Extraocular motions intact. No scleral icterus. No injection or drainage. ENT: Nose without bleeding, purulent drainage. Throat without erythema, tonsillar hypertrophy or exudate. Airway patent. NECK: Trachea midline. Non tender CARDIOVASCULAR: Regular rate and rhythm without murmurs, gallops, or rubs. RESPIRATORY: Clear to auscultation. Breath sounds equal bilaterally. No wheezes, rales, or rhonchi. GASTROINTESTINAL: Abdomen soft, non-tender, nondistended. EXTREMITIES: No edema or joint tenderness. BACK: Nontender without deformity or crepitance. No flank tenderness. NEURO: AOx3. SKIN: No rash or erythema of visible areas Initial Vital Signs Initial Vital Signs: Vital Signs Temperature 96.4 F L 12/28/23 11:09 Pulse Rate 105 H 12/28/23 11:09 Respiratory Rate 15 12/28/23 11:09 Blood Pressure 99/73 12/28/23 11:09 Pulse Oximetry 100 12/28/23 11:09 Oxygen Delivery Method Room Air 12/28/23 11:09 <Kalpana Allred DO - Last Filed: 12/29/23 03:58> Initial Vital Signs Initial Vital Signs: Vital Signs Temperature 96.4 F L 12/28/23 11:09 Pulse Rate 105 H 12/28/23 11:09 Respiratory Rate 15 12/28/23 11:09 Blood Pressure 99/73 12/28/23 11:09 Pulse Oximetry 100 12/28/23 11:09 Oxygen Delivery Method Room Air 12/28/23 11:09 Course <Brice Becerra MD - Last Filed: 12/28/23 22:44> Orders Ordered: ED Orders 12/28/23 21:17 COVID19 -Nasal RAPID Stat Discontinued Medications Sodium Chloride (Normal Saline 0.9%) 1,000 mls @ 1,000 mls/hr IV BOLUS ONE Stop: 12/28/23 12:30 Last Infusion: 12/28/23 13:30 Dose: Infused Documented By: Admin: 12/28/23 12:17 Dose: 1,000 mls/hr Documented By: IZAIAH Ceftriaxone Sodium 2,000 mg/ (Sodium Chloride) 100 mls @ 200 mls/hr IV NOW ONE Stop: 12/28/23 12:03 Last Infusion: 12/28/23 13:30 Dose: Infused Documented By: Admin: 12/28/23 12:51 Dose: 200 mls/hr Documented By: RB Sodium Chloride (Normal Saline 0.9%) 1,000 mls @ 125 mls/hr IV CONT SIMÓN Last Infusion: 12/29/23 01:58 Dose: Infused Documented By: Admin: 12/28/23 23:40 Dose: 125 mls/hr Documented By: REENA Ondansetron HCl (Ondansetron 4 Mg/2 Ml Inj) 4 mg IV NOW PRN PRN Reason: Nausea And Vomiting Ondansetron HCl (Ondansetron 4 Mg Odt) 4 mg SL NOW PRN PRN Reason: Nausea And Vomiting Vital Signs Vital signs: Vital Signs - 8 hr 12/28/23 20:00 12/28/23 20:00 12/28/23 20:30 Temperature Pulse Rate 90 92 H Respiratory Rate 17 21 Blood Pressure 128/66 Pulse Oximetry 98 99 Oxygen Delivery Method 12/28/23 20:30 12/28/23 21:00 12/28/23 21:00 Temperature Pulse Rate 91 H Respiratory Rate 19 Blood Pressure 116/62 117/63 Pulse Oximetry 99 Oxygen Delivery Method 12/28/23 21:30 12/28/23 21:30 12/28/23 22:00 Temperature Pulse Rate 92 H Respiratory Rate 20 Blood Pressure 112/68 123/63 Pulse Oximetry 99 Oxygen Delivery Method Room Air 12/28/23 22:00 12/28/23 22:30 12/28/23 22:30 Temperature Pulse Rate 91 H 94 H Respiratory Rate 20 20 Blood Pressure 133/61 Pulse Oximetry 99 98 Oxygen Delivery Method 12/28/23 23:00 12/28/23 23:00 12/28/23 23:30 Temperature Pulse Rate 95 H Respiratory Rate 20 Blood Pressure 124/67 128/62 Pulse Oximetry 99 Oxygen Delivery Method 12/28/23 23:30 12/29/23 00:00 12/29/23 00:00 Temperature Pulse Rate 97 H 95 H Respiratory Rate 21 17 Blood Pressure 132/64 Pulse Oximetry 99 98 Oxygen Delivery Method Room Air 12/29/23 00:30 12/29/23 00:30 12/29/23 01:00 Temperature Pulse Rate 97 H 99 H Respiratory Rate 18 18 Blood Pressure 136/64 Pulse Oximetry 98 98 Oxygen Delivery Method 12/29/23 01:00 12/29/23 01:29 12/29/23 01:30 Temperature Pulse Rate 101 H Respiratory Rate 24 Blood Pressure 131/61 121/61 Pulse Oximetry 98 Oxygen Delivery Method Room Air 12/29/23 01:30 12/29/23 01:59 12/29/23 01:59 Temperature Pulse Rate 99 H 99 H Respiratory Rate 21 24 Blood Pressure 121/66 Pulse Oximetry 99 98 Oxygen Delivery Method 12/29/23 02:00 12/29/23 02:00 Temperature 98.1 F Pulse Rate 100 H Respiratory Rate 21 Blood Pressure 128/64 Pulse Oximetry 99 Oxygen Delivery Method Room Air <Kalpana Allred DO - Last Filed: 12/29/23 03:58> Orders Ordered: ED Orders 12/28/23 21:17 COVID19 -Nasal RAPID Stat Discontinued Medications Sodium Chloride (Normal Saline 0.9%) 1,000 mls @ 1,000 mls/hr IV BOLUS ONE Stop: 12/28/23 12:30 Last Infusion: 12/28/23 13:30 Dose: Infused Documented By: Admin: 12/28/23 12:17 Dose: 1,000 mls/hr Documented By: IZAIAH Ceftriaxone Sodium 2,000 mg/ (Sodium Chloride) 100 mls @ 200 mls/hr IV NOW ONE Stop: 12/28/23 12:03 Last Infusion: 12/28/23 13:30 Dose: Infused Documented By: Admin: 12/28/23 12:51 Dose: 200 mls/hr Documented By: IZAIAH Sodium Chloride (Normal Saline 0.9%) 1,000 mls @ 125 mls/hr IV CONT SIMÓN Last Infusion: 12/29/23 01:58 Dose: Infused Documented By: Admin: 12/28/23 23:40 Dose: 125 mls/hr Documented By: REENA Ondansetron HCl (Ondansetron 4 Mg/2 Ml Inj) 4 mg IV NOW PRN PRN Reason: Nausea And Vomiting Ondansetron HCl (Ondansetron 4 Mg Odt) 4 mg SL NOW PRN PRN Reason: Nausea And Vomiting Vital Signs Vital signs: Vital Signs - 8 hr 12/28/23 20:00 12/28/23 20:00 12/28/23 20:30 Temperature Pulse Rate 90 92 H Respiratory Rate 17 21 Blood Pressure 128/66 Pulse Oximetry 98 99 Oxygen Delivery Method 12/28/23 20:30 12/28/23 21:00 12/28/23 21:00 Temperature Pulse Rate 91 H Respiratory Rate 19 Blood Pressure 116/62 117/63 Pulse Oximetry 99 Oxygen Delivery Method 12/28/23 21:30 12/28/23 21:30 12/28/23 22:00 Temperature Pulse Rate 92 H Respiratory Rate 20 Blood Pressure 112/68 123/63 Pulse Oximetry 99 Oxygen Delivery Method Room Air 12/28/23 22:00 12/28/23 22:30 12/28/23 22:30 Temperature Pulse Rate 91 H 94 H Respiratory Rate 20 20 Blood Pressure 133/61 Pulse Oximetry 99 98 Oxygen Delivery Method 12/28/23 23:00 12/28/23 23:00 12/28/23 23:30 Temperature Pulse Rate 95 H Respiratory Rate 20 Blood Pressure 124/67 128/62 Pulse Oximetry 99 Oxygen Delivery Method 12/28/23 23:30 12/29/23 00:00 12/29/23 00:00 Temperature Pulse Rate 97 H 95 H Respiratory Rate 21 17 Blood Pressure 132/64 Pulse Oximetry 99 98 Oxygen Delivery Method Room Air 12/29/23 00:30 12/29/23 00:30 12/29/23 01:00 Temperature Pulse Rate 97 H 99 H Respiratory Rate 18 18 Blood Pressure 136/64 Pulse Oximetry 98 98 Oxygen Delivery Method 12/29/23 01:00 12/29/23 01:29 12/29/23 01:30 Temperature Pulse Rate 101 H Respiratory Rate 24 Blood Pressure 131/61 121/61 Pulse Oximetry 98 Oxygen Delivery Method Room Air 12/29/23 01:30 12/29/23 01:59 12/29/23 01:59 Temperature Pulse Rate 99 H 99 H Respiratory Rate 21 24 Blood Pressure 121/66 Pulse Oximetry 99 98 Oxygen Delivery Method 12/29/23 02:00 12/29/23 02:00 Temperature 98.1 F Pulse Rate 100 H Respiratory Rate 21 Blood Pressure 128/64 Pulse Oximetry 99 Oxygen Delivery Method Room Air MDM - Female Genitourinary <Brice Becerra MD - Last Filed: 12/28/23 22:44> Lab Data Attestation: I reviewed the patient's lab results. 12/28/23 16:28 12/28/23 11:32 Labs: Lab Results 05/26/24 05/26/24 05/26/24 Range/Units 11:20 11:32 14:10 WBC 8.1 6.6 (4.5-11.0) X10^3/uL RBC 3.06 L 2.59 L (4.0-5.2) X10^6/uL Hgb 8.7 L 7.4 L (12.0-16.0) g/dL Hct 25.9 L 22.0 L (36-46) % MCV 84.7 85.1 (80-100) fL MCH 28.5 28.6 (26-34) PG MCHC 33.6 33.6 (30-36) % RDW 16.6 H 16.5 H (11.6-14.8) % Plt Count 193 164 (150-400) X10^3/uL Neut % (Auto) 75.5 H 74.8 (50-75) % Lymph % (Auto) 16.3 L 17.8 L (25-40) % Toole % (Auto) 5.7 5.6 (3-14) % Eos % (Auto) 1.7 L 1.2 L (2-4) % Baso % (Auto) 0.8 0.6 (0-2) % Neut # (Auto) 6100 4900 (1050-8085) /uL Lymph # (Auto) 1300 1200 (0598-2804) /uL [place] # (Auto) 500 400 (0-900) /uL Eos # (Auto) 100 100 (0-450) /uL Baso # (Auto) 100 0 (0-100) /uL PT 17.2 H (9.4-12.5) SECONDS INR 1.5 H (0.9-1.3) APTT 46 H (25.1-36.5) SECONDS Sodium 131 L (137-145) mmol/L Potassium 5.0 (3.4-5.1) mmol/L Chloride 105 (98-107) mmol/L Carbon Dioxide 18 L (22-32) mmol/L BUN 36 H (7-17) mg/dL Creatinine 1.73 H (0.52-1.04) mg/dL Estimated GFR 33 L (>60) mL/min BUN/Creatinine Ratio 20.8 (6-22) Glucose 183 H (80-110) mg/dL Lactate 1.2 (0.7-2.1) mmol/L Calcium 8.5 (8.4-10.2) mg/dL Total Bilirubin 0.6 (0.2-1.3) mg/dL AST 31 (14-36) IU/L ALT 27 (<35) IU/L Alkaline Phosphatase 113 (38-126) U/L Total Protein 6.1 L (6.3-8.2) g/dL Albumin 3.3 L (3.5-5.0) g/dL Globulin 2.8 (1.7-4.1) g/dL Albumin/Globulin Ratio 1.2 (1.0-2.8) Lipase 291 (23-300) U/L Procalcitonin 0.125 (<0.5) ng/mL Urine Color Red Urine Appearance Turbid Urine pH 7.0 (4.5-8.0) Ur Specific [place] 1.015 (1.000-1.035) Urine Protein 3+ H (Negative) Urine Glucose (UA) Trace H (Negative) g/dL Urine Ketones 1+ H (NEGATIVE) Urine Occult Blood 3+ H (Negative) Urine Nitrate Negative (Negative) Urine Bilirubin Negative (NEGATIVE) Urine Urobilinogen 2.0 H (0.2) E.U./dL Ur Leukocyte Esterase 2+ H (NEGATIVE) Urine RBC >100/hpf H (0-5/HPF) Urine WBC 5-10/hpf H (0-5/HPF) Ur Squamous Epith Cells 0-1 /hpf (0-5/HPF) Urine Bacteria None seen (None) Ur Culture Indicated? Specimen cultured Vol Urine Centrifuged 5 SARS-CoV-2 (PCR) (Negative) Blood Type O Positive Antibody Screen Negative 12/28/23 12/28/23 Range/Units 16:28 21:17 WBC 5.7 (4.5-11.0) X10^3/uL RBC 2.59 L (4.0-5.2) X10^6/uL Hgb 7.4 L (12.0-16.0) g/dL Hct 22.0 L (36-46) % MCV 84.9 (80-100) fL MCH 28.7 (26-34) PG MCHC 33.8 (30-36) % RDW 16.7 H (11.6-14.8) % Plt Count 158 (150-400) X10^3/uL Neut % (Auto) 71.1 (50-75) % Lymph % (Auto) 21.0 L (25-40) % [place]ole % (Auto) 6.1 (3-14) % Eos % (Auto) 1.1 L (2-4) % Baso % (Auto) 0.7 (0-2) % Neut # (Auto) 4000 (7985-3248) /uL Lymph # (Auto) 1200 (1964-9796) /uL [place] # (Auto) 300 (0-900) /uL Eos # (Auto) 100 (0-450) /uL Baso # (Auto) 0 (0-100) /uL PT (9.4-12.5) SECONDS INR (0.9-1.3) APTT (25.1-36.5) SECONDS Sodium (137-145) mmol/L Potassium (3.4-5.1) mmol/L Chloride (98-107) mmol/L Carbon Dioxide (22-32) mmol/L BUN (7-17) mg/dL Creatinine (0.52-1.04) mg/dL Estimated GFR (>60) mL/min BUN/Creatinine Ratio (6-22) Glucose (80-110) mg/dL Lactate (0.7-2.1) mmol/L Calcium (8.4-10.2) mg/dL Total Bilirubin (0.2-1.3) mg/dL AST (14-36) IU/L ALT (<35) IU/L Alkaline Phosphatase (38-126) U/L Total Protein (6.3-8.2) g/dL Albumin (3.5-5.0) g/dL Globulin (1.7-4.1) g/dL Albumin/Globulin Ratio (1.0-2.8) Lipase (23-300) U/L Procalcitonin (<0.5) ng/mL Urine Color Urine Appearance Urine pH (4.5-8.0) Ur Specific [place] (1.000-1.035) Urine Protein (Negative) Urine Glucose (UA) (Negative) g/dL Urine Ketones (NEGATIVE) Urine Occult Blood (Negative) Urine Nitrate (Negative) Urine Bilirubin (NEGATIVE) Urine Urobilinogen (0.2) E.U./dL Ur Leukocyte Esterase (NEGATIVE) Urine RBC (0-5/HPF) Urine WBC (0-5/HPF) Ur Squamous Epith Cells (0-5/HPF) Urine Bacteria (None) Ur Culture Indicated? Vol Urine Centrifuged SARS-CoV-2 (PCR) Negative (Negative) Blood Type Antibody Screen Point of Care Testing Glucose POC 161 Imaging Data Chest x-ray: Radiologist's Impression: [address] [address] XRay Report Signed Patient: Rosemarie Bravo MR#: [id number] : 1960 Acct:[id number] Age/Sex: 63 / F Date of Service: 12/28/23 Loc: ED Accession Number: [id number] Procedure: XR chest 1V Ordering Provider: Brice Becerra MD PROCEDURE: XR CHEST 1V INDICATIONS: suspected sepsis TECHNIQUE: One view of the chest was acquired. COMPARISON: [facility], , XR CHEST 1V, 12/11/2023, 20:03. FINDINGS: Surgical changes and devices: None. Lungs and pleura: Lungs are clear. No pleural effusions or pneumothorax. Mediastinum: Mediastinal contours appear normal. Heart size is normal. Bones and chest wall: No suspicious bony lesions. Overlying soft tissues appear unremarkable. IMPRESSION: No acute cardiopulmonary abnormality is seen. Approved by: Diana Blackmon M.D.,Ph.D. on 12/28/2023 at 12:01 US - abdomen: Radiologist's Impression: [address] [address] Ultrasound Report Signed Patient: Rosemarie Bravo MR#: [id number] : 1960 Acct:[id number] Age/Sex: 63 / F Date of Service: 12/28/23 Loc: ED Accession Number: [id number] Procedure: US renal complete Ordering Provider: Brice Becerra MD PROCEDURE: US RENAL COMPLETE INDICATIONS: eval for bladder mass/hematoma TECHNIQUE: Real-time scanning was performed of the kidneys and bladder, with image documentation. COMPARISON: None. FINDINGS: Kidneys: Kidneys are normal in size. Right kidney measures 10.9 cm long; left kidney measures 9.9 cm long. Right renal cortical thickness is 1.2 cm; left renal cortical thickness is 1.4 cm. Renal cortical echotexture is normal. No hydronephrosis or nephrolithiasis. No suspicious solid mass lesions. Bladder: Pre-void bladder volume is 227 mL. Post-void residual is 234 mL. Pre-void images demonstrate no intraluminal masses or stones. On pre-void images, right ureteral jet visualized. Left ureteral jet is not visualized with color Doppler interrogation. (Of note, ureteral jets may not be detectable in up to 25% of cases due to insufficient differences in specific gravity between ureteral and bladder urine). There is a heterogeneous mass within the bladder measuring 5.0 x 5.2 x 2.0 centimeter. Gutierrez catheter is also seen within the bladder. Miscellaneous: No free pelvic fluid. IMPRESSION: No nephrolithiasis or hydronephrosis. Heterogeneous intraluminal bladder mass seen measuring up to 5.2 centimeters. Finding may represent mass versus hemorrhagic material. Recommend correlation with direct visualization. Gutierrez catheter is in place. Patient unable to void and postvoid residual volume calculated to be greater than prevoid volume. Approved by: Diana Blackmon M.D.,Ph.D. on 12/28/2023 at 16:19 ECG Data Attestation: I personally reviewed and interpreted this ECG as follows: Interpretation: Normal sinus rhythm with rate of 97, no obvious ST segment elevation or depression changes. [place], QRS, QTC intervals normal. MDM Narrative Medical decision making narrative: 63-year-old female with recent complex pulmonary illness, rhinovirus, RAD, ventilator management, discharge from [facility] on 12/21/2023, not taking any current oral antibiotics, off oxygen, no urinary catheter in place on discharge, with dysuria and difficulty initiating urine, painful urination. No fever on triage. Sirs screen negative. White blood cell count 8.1, hemoglobin 8.7, creatinine 1.7, glucose 180s, sodium 131 similarly decreased in the past, Urine dip positive for possible infection, urinalysis requested, urine culture requested, blood cultures requested, IV ceftriaxone for possible UTI. Chest x-ray no acute changes. Other labs pending. Gross hematuria, sensation that patient unable to empty her bladder, we will flush catheter, consider CBI and irrigation until clear, might require urology consultation Patient has gross hematuria on placement of catheter, CBI initiated, still not clearing, repeat hemoglobin 7.4 decreased from prior hemoglobin 8.7, some delusional IV fluid bolus component as well. Still not clearing, we will likely need Urology consultation, we will discussed case with urology on-call Case discussed with Urology Dr. Park at [facility], on-call here for Urology, who advises no further CBI now, advises pulling the catheter and seeing if she can urinate, CT scan abdomen and pelvis advised but unfortunately the scanner is down right now, he advises pelvic ultrasound imaging, if there is a 50 cc volume or larger mass then likely will need consultation, or if patient can not urinate, we will try these measures. Gutierrez removed, patient has sensation that she can not void post removal. Ultrasound bladder shows inferior bladder 5 x 5.2 x 2.0 heterogeneous mass tumor versus clot, PVR 234 mL noted. [facility] urology to be paged back, anticipate transfer. Repeat hemoglobin 7.4 stable, same value was last value. Hold any transfusion for now, type and screen sent. Case discussed again with urology on-call Dr. Park, advises transfer to urology capable facility, either in system or perhaps with [facility] system where she was recently admitted for cardiopulmonary indications. Patient informed agrees 2019, case discussed with [facility] intake nurse, await call back from hospitalist within their system for likely transfer. [facility] Dr. Allred <Kalpana Allred, DO - Last Filed: 12/29/23 03:58> Lab Data Labs: Lab Results 12/28/23 12/28/23 12/28/23 Range/Units 11:20 11:32 14:10 WBC 8.1 6.6 (4.5-11.0) X10^3/uL RBC 3.06 L 2.59 L (4.0-5.2) X10^6/uL Hgb 8.7 L 7.4 L (12.0-16.0) g/dL Hct 25.9 L 22.0 L (36-46) % MCV 84.7 85.1 (80-100) fL MCH 28.5 28.6 (26-34) PG MCHC 33.6 33.6 (30-36) % RDW 16.6 H 16.5 H (11.6-14.8) % Plt Count 193 164 (150-400) X10^3/uL Neut % (Auto) 75.5 H 74.8 (50-75) % Lymph % (Auto) 16.3 L 17.8 L (25-40) % [place] % (Auto) 5.7 5.6 (3-14) % Eos % (Auto) 1.7 L 1.2 L (2-4) % Baso % (Auto) 0.8 0.6 (0-2) % Neut # (Auto) 6100 4900 (6276-2686) /uL Lymph # (Auto) 1300 1200 (3029-4711) /uL [place] # (Auto) 500 400 (0-900) /uL Eos # (Auto) 100 100 (0-450) /uL Baso # (Auto) 100 0 (0-100) /uL PT 17.2 H (9.4-12.5) SECONDS INR 1.5 H (0.9-1.3) APTT 46 H (25.1-36.5) SECONDS Sodium 131 L (137-145) mmol/L Potassium 5.0 (3.4-5.1) mmol/L Chloride 105 (98-107) mmol/L Carbon Dioxide 18 L (22-32) mmol/L BUN 36 H (7-17) mg/dL Creatinine 1.73 H (0.52-1.04) mg/dL Estimated GFR 33 L (>60) mL/min BUN/Creatinine Ratio 20.8 (6-22) Glucose 183 H (80-110) mg/dL Lactate 1.2 (0.7-2.1) mmol/L Calcium 8.5 (8.4-10.2) mg/dL Total Bilirubin 0.6 (0.2-1.3) mg/dL AST 31 (14-36) IU/L ALT 27 (<35) IU/L Alkaline Phosphatase 113 (38-126) U/L Total Protein 6.1 L (6.3-8.2) g/dL Albumin 3.3 L (3.5-5.0) g/dL Globulin 2.8 (1.7-4.1) g/dL Albumin/Globulin Ratio 1.2 (1.0-2.8) Lipase 291 (23-300) U/L Procalcitonin 0.125 (<0.5) ng/mL Urine Color Red Urine Appearance Turbid Urine pH 7.0 (4.5-8.0) Ur Specific [place] 1.015 (1.000-1.035) Urine Protein 3+ H (Negative) Urine Glucose (UA) Trace H (Negative) g/dL Urine Ketones 1+ H (NEGATIVE) Urine Occult Blood 3+ H (Negative) Urine Nitrate Negative (Negative) Urine Bilirubin Negative (NEGATIVE) Urine Urobilinogen 2.0 H (0.2) E.U./dL Ur Leukocyte Esterase 2+ H (NEGATIVE) Urine RBC >100/hpf H (0-5/HPF) Urine WBC 5-10/hpf H (0-5/HPF) Ur Squamous Epith Cells 0-1 /hpf (0-5/HPF) Urine Bacteria None seen (None) Ur Culture Indicated? Specimen cultured Vol Urine Centrifuged 5 SARS-CoV-2 (PCR) (Negative) Blood Type O Positive Antibody Screen Negative 12/28/23 12/28/23 Range/Units 16:28 21:17 WBC 5.7 (4.5-11.0) X10^3/uL RBC 2.59 L (4.0-5.2) X10^6/uL Hgb 7.4 L (12.0-16.0) g/dL Hct 22.0 L (36-46) % MCV 84.9 (80-100) fL MCH 28.7 (26-34) PG MCHC 33.8 (30-36) % RDW 16.7 H (11.6-14.8) % Plt Count 158 (150-400) X10^3/uL Neut % (Auto) 71.1 (50-75) % Lymph % (Auto) 21.0 L (25-40) % [place] % (Auto) 6.1 (3-14) % Eos % (Auto) 1.1 L (2-4) % Baso % (Auto) 0.7 (0-2) % Neut # (Auto) 4000 (6635-9547) /uL Lymph # (Auto) 1200 (4586-2190) /uL [place] # (Auto) 300 (0-900) /uL Eos # (Auto) 100 (0-450) /uL Baso # (Auto) 0 (0-100) /uL PT (9.4-12.5) SECONDS INR (0.9-1.3) APTT (25.1-36.5) SECONDS Sodium (137-145) mmol/L Potassium (3.4-5.1) mmol/L Chloride (98-107) mmol/L Carbon Dioxide (22-32) mmol/L BUN (7-17) mg/dL Creatinine (0.52-1.04) mg/dL Estimated GFR (>60) mL/min BUN/Creatinine Ratio (6-22) Glucose (80-110) mg/dL Lactate (0.7-2.1) mmol/L Calcium (8.4-10.2) mg/dL Total Bilirubin (0.2-1.3) mg/dL AST (14-36) IU/L ALT (<35) IU/L Alkaline Phosphatase (38-126) U/L Total Protein (6.3-8.2) g/dL Albumin (3.5-5.0) g/dL Globulin (1.7-4.1) g/dL Albumin/Globulin Ratio (1.0-2.8) Lipase (23-300) U/L Procalcitonin (<0.5) ng/mL Urine Color Urine Appearance Urine pH (4.5-8.0) Ur Specific [place] (1.000-1.035) Urine Protein (Negative) Urine Glucose (UA) (Negative) g/dL Urine Ketones (NEGATIVE) Urine Occult Blood (Negative) Urine Nitrate (Negative) Urine Bilirubin (NEGATIVE) Urine Urobilinogen (0.2) E.U./dL Ur Leukocyte Esterase (NEGATIVE) Urine RBC (0-5/HPF) Urine WBC (0-5/HPF) Ur Squamous Epith Cells (0-5/HPF) Urine Bacteria (None) Ur Culture Indicated? Vol Urine Centrifuged SARS-CoV-2 (PCR) Negative (Negative) Blood Type Antibody Screen Point of Care Testing Glucose POC 161 MDM Narrative Medical decision making narrative: 63-year-old female with recent complex pulmonary illness, rhinovirus, RAD, ventilator management, discharge from [facility] on 12/21/2023, not taking any current oral antibiotics, off oxygen, no urinary catheter in place on discharge, with dysuria and difficulty initiating urine, painful urination. No fever on triage. Sirs screen negative. White blood cell count 8.1, hemoglobin 8.7, creatinine 1.7, glucose 180s, sodium 131 similarly decreased in the past, Urine dip positive for possible infection, urinalysis requested, urine culture requested, blood cultures requested, IV ceftriaxone for possible UTI. Chest x-ray no acute changes. Other labs pending. Gross hematuria, sensation that patient unable to empty her bladder, we will flush catheter, consider CBI and irrigation until clear, might require urology consultation Patient has gross hematuria on placement of catheter, CBI initiated, still not clearing, repeat hemoglobin 7.4 decreased from prior hemoglobin 8.7, some delusional IV fluid bolus component as well. Still not clearing, we will likely need Urology consultation, we will discussed case with urology on-call Case discussed with Urology Dr. Park at [facility], on-call here for Urology, who advises no further CBI now, advises pulling the catheter and seeing if she can urinate, CT scan abdomen and pelvis advised but unfortunately the scanner is down right now, he advises pelvic ultrasound imaging, if there is a 50 cc volume or larger mass then likely will need consultation, or if patient can not urinate, we will try these measures. Gutierrez removed, patient has sensation that she can not void post removal. Ultrasound bladder shows inferior bladder 5 x 5.2 x 2.0 heterogeneous mass tumor versus clot, PVR 234 mL noted. [facility] urology to be paged back, anticipate transfer. Repeat hemoglobin 7.4 stable, same value was last value. Hold any transfusion for now, type and screen sent. Case discussed again with urology on-call Dr. Park, advises transfer to urology capable facility, either in system or perhaps with [place] [facility] for cardiopulmonary indications. Patient informed agrees 2019, case discussed with [facility] intake nurse, await call back from hospitalist within their system for likely transfer. Signed out to [facility] ED shift physician Dr. Allred Patient was signed out to myself patient was seen and evaluated independently by myself. Patient's catheter was replaced after having recurrent retention she has had continuous here ablation again she continues to have gross hematuria that is dark in opaque, no large clots. She did have a little drop in her hemoglobin from 8-7. She did receive a L of fluids. Her labs and imaging were all reviewed her renal function is actually improved from the 11 of December. She does have some changes in urine that could be consistent with infection and did have a recent Gutierrez catheter while intubated at [facility] and she noted that she had had hematuria discharge but no retention and it had persisted. She was also recently started on Xarelto during her hospitalization for paroxysmal atrial fibrillation. Spoke with leonel Melton, Dr. Young who accept as long as urologist is comfortable. Happy to see patient. Spoke with Dr. Mitchell, Urology he states he has already been in touch with the clinical research administrator and told them he would be happy to see the patient. Plan for transfer. Critical Care Time <Brice Becerra MD - Last Filed: 12/28/23 22:44> Critical Care Time Critical Care Time: Yes Total Critical Care Time: 35 Attestation: The high probability of a clinically significant, sudden or life threatening deterioration of the [hematologic, genitourinary, urologic] system(s) required my full and direct attention, intervention and personal management. The aggregate critical care time was [35] minutes. This time is in addition to time spent performing reported procedures but includes the following: [x] Data Review and interpretation [x] Patient assessment and monitoring of vital signs [x] Documentation [x] Medication orders and management Discharge Plan Departure Patient Disposition: [facility] Clinical Impression: Gross hematuria, Urinary tract infection, Dysuria, Chronic anticoagulation Prescriptions: No Action simvastatin 40 mg tablet 40 mg PO ONCE PM lisinopril 40 mg tablet 40 mg PO DAILY insulin glargine [Lantus Solostar U-100 Insulin] 100 unit/mL (3 mL) insulin pen 30 unit SUBCUT 3XD Patient Comments: [NO ORIGINAL SIG] Rx Instructions: 30 units q AM 36 units q PM Trulicity 3 mg/0.5 mL pen injector 3 mg SUBCUT WEEKLY Patient Comments: [NO ORIGINAL SIG] hydrochlorothiazide 12.5 mg 12.5 mg PO DAILY Referrals: Mindi Suarez MD [Primary Care Provider] -
[2023-12-28 11:54] LABS: Alanine Aminotransferase 27 IU/L (<35); Albumin 3.3 g/dL (3.5-5.0); Albumin Globulin Ratio 1.2 (1.0-2.8); Alkaline Phosphatase 113 U/L (38-126); Aspartate Aminotransferase 31 IU/L (14-36); BUN Creatinine Ratio 20.8 (6-22); Bilirubin Total 0.6 mg/dL (0.2-1.3); Blood Urea Nitrogen 36 mg/dL (7-17); Calcium 8.5 mg/dL (8.4-10.2); Carbon Dioxide 18 mmol/L (22-32); Chloride 105 mmol/L (98-107); Estimated Glomerular Filt Rate 33 mL/min (>60); Globulin 2.8 g/dL (1.7-4.1); Glucose 183 mg/dL (80-110); HEMOLYSIS < 15 (0-50); Lipase 291 U/L (23-300); Sodium 131 mmol/L (137-145); Total Protein 6.1 g/dL (6.3-8.2)
[2023-12-28 11:55] LABS: Lactate (Lactic Acid) 1.2 mmol/L (0.7-2.1)
[2023-12-28 12:11] LABS: Procalcitonin 0.125 ng/mL (<0.5)
[2023-12-28] MEDS: SODIUM CHLORIDE 0.9% 1,000 ML 1000 ML IV (12:17)
[2023-12-28] MEDS: cefTRIAXone 2,000 MG in SODIUM CHLORIDE 0.9% 100 ML 200 MG IV (12:51)
[2023-12-28 14:23] LABS: Add Manual Diff / Slide Review NO; Basophils Absolute Auto 0 /uL (0-100); Basophils Percent Auto 0.6 % (0-2); Eosinophils Absolute Auto 100 /uL (0-450); Eosinophils Percent Auto 1.2 % (2-4); Hemoglobin 7.4 g/dL (12.0-16.0); Lymphocytes Absolute Auto 1200 /uL (1100-4500); Lymphocytes Percent Auto 17.8 % (25-40); Mean Corpuscular HGB Conc 33.6 % (30-36); Mean Corpuscular Hemoglobin 28.6 PG (26-34); Mean Corpuscular Volume 85.1 fL (80-100); Monocytes Absolute Auto 400 /uL (0-900); Monocytes Percent Auto 5.6 % (3-14); Neutrophils Absolute Auto 4900 /uL (1500-7000); Neutrophils Percent Auto 74.8 % (50-75); Platelet Count 164 X10^3/uL (150-400); Red Blood Cell Count 2.59 X10^6/uL (4.0-5.2); Red Cell Distribution Width 16.5 % (11.6-14.8); White Blood Cell Count 6.6 X10^3/uL (4.5-11.0)
--- NOTE | 2023-12-28 15:01 | DI.US.S_ITS ---
PROCEDURE: US RENAL COMPLETE INDICATIONS: eval for bladder mass/hematoma TECHNIQUE: Real-time scanning was performed of the kidneys and bladder, with image documentation. COMPARISON: None. FINDINGS: Kidneys: Kidneys are normal in size. Right kidney measures 10.9 cm long; left kidney measures 9.9 cm long. Right renal cortical thickness is 1.2 cm; left renal cortical thickness is 1.4 cm. Renal cortical echotexture is normal. No hydronephrosis or nephrolithiasis. No suspicious solid mass lesions. Bladder: Pre-void bladder volume is 227 mL. Post-void residual is 234 mL. Pre-void images demonstrate no intraluminal masses or stones. On pre-void images, right ureteral jet visualized. Left ureteral jet is not visualized with color Doppler interrogation. (Of note, ureteral jets may not be detectable in up to 25% of cases due to insufficient differences in specific gravity between ureteral and bladder urine). There is a heterogeneous mass within the bladder measuring 5.0 x 5.2 x 2.0 centimeter. Gutierrez catheter is also seen within the bladder. Miscellaneous: No free pelvic fluid. IMPRESSION: No nephrolithiasis or hydronephrosis. Heterogeneous intraluminal bladder mass seen measuring up to 5.2 centimeters. Finding may represent mass versus hemorrhagic material. Recommend correlation with direct visualization. Gutierrez catheter is in place. Patient unable to void and postvoid residual volume calculated to be greater than prevoid volume. Approved by: Diana Blackmon M.D.,Ph.D. on 12/28/2023 at 16:19
--- NOTE | 2023-12-28 15:19 | PC.NURSE ---
Addendum entered by Chuyita Locke R.N. 12/28/23 15:28: Correction: CBI was started at 1400. Original Note: CBI stopped at 1515 per provider Becerra verbal direction after consulting with urology. 3400 cc of NS IN total and 4275 out from the kauffman cath. CBI was started at 1330.
--- NOTE | 2023-12-28 16:10 | PC.NURSE ---
Per provider Hernan verbal direction after consulting with urology kauffman cath is removed prior to ultrasound.
[2023-12-28 16:35] LABS: Add Manual Diff / Slide Review NO; Basophils Absolute Auto 0 /uL (0-100); Basophils Percent Auto 0.7 % (0-2); Eosinophils Absolute Auto 100 /uL (0-450); Eosinophils Percent Auto 1.1 % (2-4); Hemoglobin 7.4 g/dL (12.0-16.0); Lymphocytes Absolute Auto 1200 /uL (1100-4500); Mean Corpuscular HGB Conc 33.8 % (30-36); Mean Corpuscular Hemoglobin 28.7 PG (26-34); Mean Corpuscular Volume 84.9 fL (80-100); Monocytes Absolute Auto 300 /uL (0-900); Monocytes Percent Auto 6.1 % (3-14); Neutrophils Absolute Auto 4000 /uL (1500-7000); Neutrophils Percent Auto 71.1 % (50-75); Platelet Count 158 X10^3/uL (150-400); Red Blood Cell Count 2.59 X10^6/uL (4.0-5.2); Red Cell Distribution Width 16.7 % (11.6-14.8); White Blood Cell Count 5.7 X10^3/uL (4.5-11.0)
--- NOTE | 2023-12-28 17:30 | PC.NURSE ---
Pt denies any pain or any urinary symptoms upon reassessment. Pt encouraged to use bathroom to void since removal of kauffman cath. Pt denies having to urinate at this time. Call light within reach and encouraged to use for needs.
[2023-12-28 23:35] LABS: COVID19 -Nasal RAPID Negative (Negative)
[2023-12-28] MEDS: SODIUM CHLORIDE 0.9% 1,000 ML 125 ML IV (23:40)
[2023-12-29] VITALS (7 sets, daily range): BP systolic 121–136; BP diastolic 61–66; PULSE 95–101; RESP 17–24; TEMP 36.7; O2SAT 98–99
--- NOTE | 2023-12-29 01:39 | PC.NURSE ---
Addendum entered by Chuyita Locke R.N. 12/29/23 02:02: Correction: 6,100cc of NS irrigated in and 8,000 total measured output as of 0145. Original Note: CBI again started at 2149. 5,100cc of NS irrigated in and 7,300 total measured output as of 0115.
== END 2023-12-29 02:10 | disposition short-term general hospital (02) ==
PROVIDERS: Emergency Medicine; Emergency Provider Emergency Medicine; PCP Family Medicine
DX: N39.0 Urinary tract infection, site not specified (principal); R31.0 Gross hematuria; Z79.01 Long term (current) use of anticoagulants
CPT/HCPCS: 36415; 51702; 51798; 71045; 76770; 80053; 81001; 82962; 83605; 83690; 84145; 85025; 85610; 85730; 86850; 86900; 86901; 87040; 87086; 87635; 93005; 96365; 99285; 99291; J0696

== ENCOUNTER → 2024-04-20 15:43 | Outpatient (CLI) | payer OTHER, SELFPAY ==
[2023-12-11 07:56] VITALS: BMI 36.8
[2023-12-12 13:00] VITALS: PULSE 100; RESP 20; O2SAT 96
--- NOTE | 2024-04-20 15:44 | DI.ECHO.S_ITS ---
[place] [facility]+ [facility] : : [address] : : [place] : : [id number] : : Phone: [phone] Echocardiogram Report + + :Name: RICK RUSSO Study Date: 04/20/2024 Height: 64 in : :[facility] ReadingLocation: Weight: 225 lb : : Gender: Female BSA: 2.1 m2 : :: 1960 Age: 63 yrs BP: 138/86 mmHg: :Reason For Study: ACUTE SYSTOLIC HEART FAILURE : :Ordering Physician: JENNY HYATT Performed By: David Levin : :Referring: JENNY HYATT : + + Interpretation Summary 1. The left ventricular contractility is severely compromised. Estimated ejection fraction is approximately 25 to 30%. There is severe hypokinesis of the anterior segment. The remaining segments are moderately hypokinetic. No LVH. Unable to comment on diastolic function. The left ventricular cavity is moderately dilated. 2. In limited views, the right ventricular contractility appears to be borderline. 3. There is severe mitral regurgitation noted. 4. Mild to moderate tricuspid regurgitation with estimated pulmonary systolic artery pressures of 49 mmHg. 4. Low right-sided filling pressures. 5. A small, nonhemodynamically significant pericardial effusion identified. 6. No obvious intracardiac masses nor thrombi. Conclusion: Severely compromised left ventricular systolic function with severe mitral regurgitation. When compared with previous echocardiogram, there appears to be a decline in the left ventricular systolic function with worsening mitral regurgitation. Procedure: A two-dimensional transthoracic echocardiogram with color flow and Doppler was performed in limited views only. The study quality was technically adequate. Comparison is made with the echocardiogram of 12/11/2023. The patient was in sinus rhythm with heart rates between 99-104 bpm during the exam. Left Ventricle: There is normal left ventricular wall thickness. The left ventricle is moderately dilated. The ejection fraction is estimated to be 25- 30%. Mitral Valve: The mitral valve is normal. There is no mitral valve stenosis. There is moderate to severe mitral regurgitation. Aortic Valve: The aortic valve is trileaflet. There is no aortic valve stenosis. There is trace aortic regurgitation. Tricuspid Valve: The tricuspid valve is normal. There is no tricuspid stenosis. There is mild to moderate tricuspid regurgitation. The right ventricular systolic pressure is estimated to be at least 49.2 mmHg based on an estimated right atrial pressure of 3 mm Hg. Great Vessels: The IVC is of normal diameter and collapses greater than 50% with a sniff. This suggests a low right atrial pressure of 3 mm Hg. Pericardium/ Pleura There is a small pericardial effusion noted. MMode/2D Measurements & Calculations LVIDd: 6.4 cm IVC diam: 1.6 cm LVIDs: 5.7 cm FS: 11.5 % IVSd: 1.0 cm LVPWd: 1.1 cm LV latham. diameter/BSA (cm/m^2): 3.1 LV sys. diameter/BSA (cm/m^2): 2.8 Doppler Measurements & Calculations MR ERO: 0.32 cm2 TR max dianne: 340.0 cm/sec TR max P.2 mmHg MR PISA: 5.5 cm2 MR flow rate: 203.2 cm3/sec MR PISA radius: 0.94 cm Reading Physician:
== END ==
LOC: ECHO 15:44
PROVIDERS: PCP Family Medicine; Referring Provider Internal Medicine; Visit Provider Internal Medicine
DX: I08.1 Rheumatic disorders of both mitral and tricuspid valves (principal); I50.21 Acute systolic (congestive) heart failure; I31.39 Other pericardial effusion (noninflammatory)
CPT/HCPCS: 93307

== ENCOUNTER → 2024-05-28 07:19 | Outpatient (CLI) | payer OTHER, SELFPAY ==
[2023-12-11 07:56] VITALS: BMI 36.8
[2023-12-12 13:00] VITALS: PULSE 100; RESP 20; O2SAT 96
--- NOTE | 2024-05-28 07:20 | DI.NM.S_ITS ---
PROCEDURE: NM EXERCISE TREADMILL NON NUC COMPARISON: None. INDICATIONS: OLD OR FINDINGS: Patient exercised per the standard Carlos protocol. Total exercise time was 1 minute 30 seconds. Test was terminated secondary to fatigue. Maximal heart rate obtained is 123 bpm which is 78% of max predicted heart rate. Maximum blood pressure was 152/[place] [address]. BRET +72%. 4.6 METS. No ischemic changes noted. No arrhythmias noted. No chest pains voiced. Normal heart rate and blood pressure response to exercise. IMPRESSION: 1. Nondiagnostic exercise treadmill stress test due to inability to reach target heart rate. 2. Severely compromised exercise tolerance. Dictated by: Demian Hyatt M.D. on 05/28/2024 at 16:53 Approved by: Demian Hyatt M.D. on 05/28/2024 at 16:55
== END ==
PROVIDERS: Referring Provider Internal Medicine; Visit Provider Internal Medicine
DX: I25.2 Old myocardial infarction (principal)
CPT/HCPCS: 93017

== ENCOUNTER → 2024-08-09 09:32 | Outpatient (CLI) | payer OTHER, SELFPAY ==
[2023-12-11 07:56] VITALS: BMI 36.8
[2023-12-12 13:00] VITALS: PULSE 100; RESP 20; O2SAT 96
--- NOTE | 2024-08-09 09:33 | DI.NM.S_ITS ---
PROCEDURE: NM ROSALIE PERF SPECT R&S PHARM Rest and pharmacological stress myocardial perfusion SPECT with gated imaging and ejection fraction RADIOPHARMACEUTICAL: 25.9 mCi Tc-99m tetrafosmin IV at rest and 25.0 mCi Tc-99m tetrafosmin IV at peak effect of pharmacological stress. [id number] was performed. INDICATIONS: OLD DE TECHNIQUE: Radiopharmaceutical was injected at peak stress test, and also at rest. SPECT images were obtained. SPECT myocardial perfusion images were displayed in short axis, horizontal long axis, and vertical long axis views. Gated images were reviewed using [employer] software. COMPARISON: None. CARDIAC STRESS: A pharmacologic stress test was performed under the supervision of an attending staff, using an infusion of lexiscan 0.4mg IV X1. Hemodynamic data: There is normal blood pressure and heart rate response to pharmacologic stress. Symptoms: The patient denied anginal chest pain. Aminophylline: none EKG: No diagnostic changes of ischemia; no ectopy. FINDINGS: Raw data: There is good myocardial uptake of radiotracer. No significant motion artifacts. Left ventricle function: Gated images demonstrate normal left ventricular wall thickening. No segmental wall motion abnormalities. No transient ischemic dilation; TID is 0.99 (normal less than 1.3). Left ventricle resting end diastolic volume is 224 mL. Left ventricle stress ejection fraction is 44%; normal range is above 45%. Myocardial perfusion: There is a moderately intense fixed basal to mid inferior wall defect extending to basal to mid lateral wall that resolves with prone imaging, suggesting artifact. No ischemia and no infarction present. IMPRESSION: Low risk, normal pharm nuclear stress test from inducible ischemia standpoint. Dilated left ventricle with mildly reduced systolic function. 1) 1) There is a moderately intense fixed basal to mid inferior wall defect extending to basal to mid lateral wall that resolves with prone imaging, suggesting artifact. No ischemia and no infarction present. 2) Dilated left ventricle (resting EDV 224cc) with mildly reduced systolic function (EF post stress 47%). 3) No diagnostic ST changes with lexiscan. 4) No angina during the study. 5) No prior nuclear stress test available for comparison. Dictated by: Jaret Epperson MD on 08/10/2024 at 16:56 Approved by: Jaret Epperson MD on 08/10/2024 at 16:59
== END ==
PROVIDERS: Referring Provider Internal Medicine; Visit Provider Internal Medicine
DX: I25.2 Old myocardial infarction (principal)
CPT/HCPCS: 78452; 93017; A9502; J2785

== ENCOUNTER → 2024-10-26 17:11 | Outpatient (CLI) | payer OTHER, SELFPAY ==
[2023-12-11 07:56] VITALS: BMI 36.8
[2023-12-12 13:00] VITALS: PULSE 100; RESP 20; O2SAT 96
[2024-10-26 18:25] LABS: BUN Creatinine Ratio 16.6 (6-22); Blood Urea Nitrogen 32 mg/dL (7-17); Calcium 8.8 mg/dL (8.4-10.2); Carbon Dioxide 21 mmol/L (22-32); Chloride 107 mmol/L (98-107); Estimated Glomerular Filt Rate 29 mL/min (>60); Glucose 207 mg/dL (80-110); HEMOLYSIS < 15 (0-50); Sodium 138 mmol/L (137-145)
[2024-10-26 18:26] LABS: Potassium 5.8 mmol/L (3.4-5.1)
== END ==
PROVIDERS: Referring Provider Internal Medicine; Visit Provider Internal Medicine
DX: I50.22 Chronic systolic (congestive) heart failure (principal)
CPT/HCPCS: 36415; 80048

== ENCOUNTER → 2024-11-01 17:06 | Outpatient (CLI) | payer OTHER, SELFPAY ==
[2023-12-11 07:56] VITALS: BMI 36.8
[2023-12-12 13:00] VITALS: PULSE 100; RESP 20; O2SAT 96
[2024-11-01 18:07] LABS: BUN Creatinine Ratio 15.9 (6-22); Blood Urea Nitrogen 32 mg/dL (7-17); Calcium 8.8 mg/dL (8.4-10.2); Carbon Dioxide 20 mmol/L (22-32); Chloride 104 mmol/L (98-107); Estimated Glomerular Filt Rate 27 mL/min (>60); Glucose 245 mg/dL (80-110); HEMOLYSIS < 15 (0-50); Sodium 135 mmol/L (137-145)
[2024-11-01 18:10] LABS: Potassium 6.2 mmol/L (3.4-5.1)
== END ==
PROVIDERS: Visit Provider Internal Medicine
DX: I50.22 Chronic systolic (congestive) heart failure (principal)
CPT/HCPCS: 36415; 80048

== ENCOUNTER 2025-01-01 19:54 | Inpatient (IN) | payer OTHER, SELFPAY ==
[2023-12-11 07:56] VITALS: BMI 36.8
[2023-12-12 13:00] VITALS: PULSE 100; RESP 20; O2SAT 96
[2025-01-01] VITALS (9 sets, daily range): BP systolic 121–133; BP diastolic 52–86; PULSE 87–122; RESP 18–25; TEMP 36.4; O2SAT 97–100; BMI 38.6; BMI 39.2
--- NOTE | 2025-01-01 20:02 | EKG_ITS ---
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
[2025-01-01] MEDS: SODIUM CHLORIDE 0.9% 1,000 ML 1000 ML IV (20:37)
[2025-01-01] MEDS: ONDANSETRON 4 MG/2 ML INJ IV (20:39)
[2025-01-01 20:40] LABS: Base Excess VBG -10.7 mmol/L (0-4); HCO3 VBG 15 mmol/L (24-28); Oxygen Saturation VBG 36 % (70-75); PCO2 VBG 30.9 mmHg (45-50); PO2 VBG 24 mmHg (35-45); Total CO2 VBG 14 mmol/L (24-29); pH VBG 7.29 (7.33-7.43)
[2025-01-01 20:42] LABS: Basophils Absolute Auto 0 /uL (0-100); Basophils Percent Auto 0.3 % (0-2); Eosinophils Absolute Auto 0 /uL (0-450); Eosinophils Percent Auto 0.3 % (2-4); Lymphocytes Absolute Auto 800 /uL (1100-4500); Lymphocytes Percent Auto 7.9 % (25-40); Mean Corpuscular HGB Conc 31.8 % (30-36); Mean Corpuscular Hemoglobin 22.2 PG (26-34); Mean Corpuscular Volume 69.7 fL (80-100); Monocytes Absolute Auto 600 /uL (0-900); Monocytes Percent Auto 5.4 % (3-14); Neutrophils Absolute Auto 8700 /uL (1500-7000); Neutrophils Percent Auto 86.1 % (50-75); Platelet Count 254 X10^3/uL (150-400); Red Blood Cell Count 2.75 X10^6/uL (4.0-5.2); Red Cell Distribution Width 20.4 % (11.6-14.8); White Blood Cell Count 10.1 X10^3/uL (4.5-11.0)
[2025-01-01 20:46] LABS: Hematocrit 19.1 % (36-46); Hemoglobin 6.1 g/dL (12.0-16.0)
[2025-01-01 20:47] LABS: Add Manual Diff / Slide Review SLIDE REVIEW
[2025-01-01 20:51] LABS: Alanine Aminotransferase 15 IU/L (<35); Alkaline Phosphatase 86 U/L (38-126); Aspartate Aminotransferase 26 IU/L (14-36); BUN Creatinine Ratio 31.3 (6-22); Bilirubin Total 0.4 mg/dL (0.2-1.3); Blood Urea Nitrogen 62 mg/dL (7-17); Calcium 7.9 mg/dL (8.4-10.2); Carbon Dioxide 14 mmol/L (22-32); Chloride 106 mmol/L (98-107); Estimated Glomerular Filt Rate 28 mL/min (>60); Globulin 2.9 g/dL (1.7-4.1); Glucose 405 mg/dL (70-99); HEMOLYSIS < 15 (0-50); Sodium 129 mmol/L (137-145); Total Protein 5.9 g/dL (6.3-8.2)
[2025-01-01] MEDS: METOPROLOL IR 25 MG TABLET 100 MG PO (20:51)
[2025-01-01 21:02] LABS: Troponin I 0.028 ng/mL (0.01-0.034)
[2025-01-01 21:15] LABS: Ketones (Beta-Hydroxybutyrate) 0.92 mmol/L (<0.27)
[2025-01-01 21:27] LABS: Anisocytosis 2+; Microcytosis 2+; Platelet Estimate Adequate on smear
[2025-01-01 21:45] LABS: HEMOLYSIS < 15 (0-50)
--- NOTE | 2025-01-01 21:49 | PC.NURSE ---
Patient told this RN that she has also been intermittently having black stools and had one just now in bathroom. Provider made aware, new orders given.
[2025-01-01 21:56] LABS: Potassium 6.5 mmol/L (3.4-5.1)
[2025-01-01 21:56] LABS: INR 1.7 (0.9-1.3); Prothrombin Time 19.1 SECONDS (9.4-12.5)
[2025-01-01 21:59] LABS: PTT Partial Thromboplastin Tim 39 SECONDS (25.1-36.5)
[2025-01-01] MEDS: OXYMETAZOLINE NASAL SPRAY 30 ML 2 SPRAYS NASAL (22:00)
--- NOTE | 2025-01-01 22:45 | ED.GENADULT ---
HPI - General Adult General Chief complaint: Nasal Problem Stated complaint: nose bleed off/on today, Sob, nausea Time Seen by Provider: 01/01/25 20:18 Source: patient Mode of arrival: Wheelchair History of Present Illness HPI narrative: 64-year-old woman presents with a history of paroxysmal atrial fibrillation for which she is on Xarelto, diabetes, hypertension, hyperlipidemia with persistent nosebleed for almost 24 hours, also noting black stool that has been noted since the bleeding. The bleeding is from the right Gregg only. Not associated with any pain. She states she has been using all of her usual medications. She notes some scattered wheeze and chest tightness, no abdominal pain, nausea or vomiting. No other concerns today Related Data Home Medications Medication Instructions Recorded Confirmed dulaglutide 3 mg/0.5 mL 3 mg SUBCUT WEEKLY 12/11/23 12/11/23 subcutaneous pen injector (Trulicity) hydrochlorothiazide 12.5 mg PO DAILY 12/11/23 12/11/23 insulin glargine 100 unit/mL (3 30 unit SUBCUT 3XD 12/11/23 12/11/23 mL) subcutaneous pen (Lantus Solostar U-100 Insulin) lisinopril 40 mg tablet 40 mg PO DAILY 12/11/23 12/11/23 simvastatin 40 mg tablet 40 mg PO ONCE PM 12/11/23 12/11/23 Allergies Allergy/AdvReac Type Severity Reaction Status Date / Time No Known Drug Allergies Allergy Verified 01/01/25 19:57 Review of Systems Review of Systems Narrative: Pertinent positive and negative findings as per HPI Patient History Medical History HLD (hyperlipidemia) Diabetes HTN (hypertension) CKD (chronic kidney disease) Social History household members: spouse Smoking Status: Former smoker alcohol intake: current Smoking Status: Former smoker tobacco type: cigarettes alcohol intake frequency: holidays/special occasions only Exam Initial Vital Signs Initial Vital Signs: Vital Signs Temperature 97.6 F 01/01/25 19:57 Pulse Rate 122 H 01/01/25 19:57 Respiratory Rate 18 01/01/25 19:57 Blood Pressure 128/86 01/01/25 19:57 Pulse Oximetry 97 01/01/25 19:57 Oxygen Delivery Method Room Air 01/01/25 19:57 General: Healthy appearing, in no acute distress. Able to give a complete and coherent history. Well-nourished well-developed HEENT: Moist mucous membranes, normal sclera with reactive pupils,Nose has been clamped for a number of hours, consistent small amount of bleeding from the right Gregg, no obvious bleeding site is clarified Neck: No JVD, supple Respiratory: Lungs minor scattered wheeze no rales no rhonchi. Full and symmetrical air movement Cardiac: Regular rate and rhythm no murmurs no bruits Abdomen: Soft, nontender, no rebound or guarding, no flank pain Skin: Warm and dry, no rashes Neurologic: Grossly neurologically intact with no obvious asymmetries or abnormalities Extremities: No trauma, well perfused Psych: Cooperative, appropriate insight and affect Course Orders Ordered: ED Orders 01/01/25 20:02 EKG-12 Lead Stat 01/01/25 20:18 VBG [Venous Blood Gas] STAT 01/01/25 20:26 Complete Blood Count AUTO DIFF Stat Comprehensive Metabolic Panel Stat Ketones (Beta-Hydroxybutyrate) Stat PTT Partial Thromboplastin Marvin Stat Prothrombin Time INR Stat Troponin I Stat 01/01/25 20:38 Venous Blood Gas Routine 01/01/25 20:55 Type and Screen Stat 01/01/25 21:32 Potassium Stat 01/01/25 23:03 PRBC [Packed Cells] Stat Discontinued Medications Furosemide (Furosemide 40 Mg/4 Ml Vial) 20 mg IV NOW ONE Stop: 01/01/25 23:04 Last Admin: 01/01/25 23:14 Dose: 20 mg Sodium Chloride (Normal Saline 0.9%) 1,000 mls @ 1,000 mls/hr IV BOLUS ONE Stop: 01/01/25 21:17 Last Infusion: 01/01/25 21:28 Dose: Infused Documented By: Admin: 01/01/25 20:37 Dose: 1,000 mls/hr Documented By: LIZ Insulin Human Regular (Insulin Regular 100 Unit/Ml 3 Ml Vial) 10 unit IV NOW ONE Stop: 01/01/25 23:04 Last Admin: 01/01/25 23:14 Dose: 10 unit Metoprolol Tartrate (Metoprolol Ir 25 Mg Tablet) 100 mg PO NOW ONE Stop: 01/01/25 20:19 Last Admin: 01/01/25 20:51 Dose: 100 mg Documented By: LIZ Ondansetron HCl (Ondansetron 4 Mg/2 Ml Inj) 4 mg IV NOW ONE Stop: 01/01/25 20:19 Last Admin: 01/01/25 20:39 Dose: 4 mg Documented By: LIZ Oxymetazoline HCl (Oxymetazoline Nasal [place] 30 Ml) 2 sprays NASAL NOW ONE Stop: 01/01/25 21:49 Last Admin: 01/01/25 22:00 Dose: 2 sprays Documented By: NARCISA Sodium Zirconium Cyclosilicate (Sodium Zirconium Cyclosilicate 10 Gm Powd.Pack) 10 gm PO NOW ONE Stop: 01/01/25 23:04 Last Admin: 01/01/25 23:15 Dose: 10 gm Vital Signs Vital signs: Vital Signs - 8 hr 01/01/25 19:57 01/01/25 21:27 01/01/25 22:01 Temperature 97.6 F Pulse Rate 122 H 99 H 96 H Respiratory Rate 18 18 25 H Blood Pressure 128/86 132/59 L Pulse Oximetry 97 99 Oxygen Delivery Method Room Air Room Air 01/01/25 22:02 01/01/25 22:02 Temperature Pulse Rate 95 H Respiratory Rate 19 Blood Pressure 127/69 Pulse Oximetry 99 Oxygen Delivery Method Room Air Medical Decision Making Lab Data 01/01/25 20:26 01/01/25 21:32 Labs: Lab Results 01/01/25 01/01/25 01/01/25 Range/Units 20:26 20:38 20:55 WBC 10.1 (4.5-11.0) X10^3/uL RBC 2.75 L (4.0-5.2) X10^6/uL Hgb 6.1 L* (12.0-16.0) g/dL Hct 19.1 L* (36-46) % MCV 69.7 L (80-100) fL MCH 22.2 L (26-34) PG MCHC 31.8 (30-36) % RDW 20.4 H (11.6-14.8) % Plt Count 254 (150-400) X10^3/uL Neut % (Auto) 86.1 H (50-75) % Lymph % (Auto) 7.9 L (25-40) % Lawrence % (Auto) 5.4 (3-14) % Eos % (Auto) 0.3 L (2-4) % Baso % (Auto) 0.3 (0-2) % Neut # (Auto) 8700 H (3495-5179) /uL Lymph # (Auto) 800 L (4142-4313) /uL Lawrence # (Auto) 600 (0-900) /uL Eos # (Auto) 0 (0-450) /uL Baso # (Auto) 0 (0-100) /uL Platelet Estimate Adequate on smear RBC Morphology See below Anisocytosis 2+ H Microcytosis 2+ H PT 19.1 H (9.4-12.5) SECONDS INR 1.7 H (0.9-1.3) APTT 39 H (25.1-36.5) SECONDS VBG pH 7.29 L (7.33-7.43) VBG pCO2 30.9 L (45-50) mmHg VBG pO2 24 L (35-45) mmHg VBG HCO3 15 L (24-28) mmol/L VBG Total CO2 14 L (24-29) mmol/L VBG O2 Saturation 36 L (70-75) % VBG Base Excess -10.7 L (0-4) mmol/L FiO2 % 21.0 % % Sodium 129 L (137-145) mmol/L Potassium 7.0 H* (3.4-5.1) mmol/L Chloride 106 (98-107) mmol/L Carbon Dioxide 14 L (22-32) mmol/L BUN 62 H (7-17) mg/dL Creatinine 1.98 H (0.52-1.04) mg/dL Estimated GFR 28 L (>60) mL/min BUN/Creatinine Ratio 31.3 H (6-22) Glucose 405 H (70-99) mg/dL Calcium 7.9 L (8.4-10.2) mg/dL Total Bilirubin 0.4 (0.2-1.3) mg/dL AST 26 (14-36) IU/L ALT 15 (<35) IU/L Alkaline Phosphatase 86 (38-126) U/L Troponin I 0.028 (0.01-0.034) ng/mL Total Protein 5.9 L (6.3-8.2) g/dL Albumin 3.0 L (3.5-5.0) g/dL Globulin 2.9 (1.7-4.1) g/dL Albumin/Globulin Ratio 1.0 (1.0-2.8) Ketones 0.92 H (<0.27) mmol/L Blood Type O Positive Antibody Screen Negative Crossmatch See Detail 01/01/25 Range/Units 21:32 WBC (4.5-11.0) X10^3/uL RBC (4.0-5.2) X10^6/uL Hgb (12.0-16.0) g/dL Hct (36-46) % MCV (80-100) fL MCH (26-34) PG MCHC (30-36) % RDW (11.6-14.8) % Plt Count (150-400) X10^3/uL Neut % (Auto) (50-75) % Lymph % (Auto) (25-40) % Lawrence % (Auto) (3-14) % Eos % (Auto) (2-4) % Baso % (Auto) (0-2) % Neut # (Auto) (4513-9330) /uL Lymph # (Auto) (6737-7489) /uL Lawrence # (Auto) (0-900) /uL Eos # (Auto) (0-450) /uL Baso # (Auto) (0-100) /uL Platelet Estimate RBC Morphology Anisocytosis Microcytosis PT (9.4-12.5) SECONDS INR (0.9-1.3) APTT (25.1-36.5) SECONDS VBG pH (7.33-7.43) VBG pCO2 (45-50) mmHg VBG pO2 (35-45) mmHg VBG HCO3 (24-28) mmol/L VBG Total CO2 (24-29) mmol/L VBG O2 Saturation (70-75) % VBG Base Excess (0-4) mmol/L FiO2 % % Sodium (137-145) mmol/L Potassium 6.5 H* (3.4-5.1) mmol/L Chloride (98-107) mmol/L Carbon Dioxide (22-32) mmol/L BUN (7-17) mg/dL Creatinine (0.52-1.04) mg/dL Estimated GFR (>60) mL/min BUN/Creatinine Ratio (6-22) Glucose (70-99) mg/dL Calcium (8.4-10.2) mg/dL Total Bilirubin (0.2-1.3) mg/dL AST (14-36) IU/L ALT (<35) IU/L Alkaline Phosphatase (38-126) U/L Troponin I (0.01-0.034) ng/mL Total Protein (6.3-8.2) g/dL Albumin (3.5-5.0) g/dL Globulin (1.7-4.1) g/dL Albumin/Globulin Ratio (1.0-2.8) Ketones (<0.27) mmol/L Blood Type Antibody Screen Crossmatch MDM Narrative Medical decision making narrative: CC:Epistaxis for almost 24 hours Complicating co-morbidities: anticoagulated for chronic atrial fibrillation, asthma, diabetes, hypertension, hyperlipidemia, chronic kidney disease data is collected from patient and her Medical records reviewed: hospitalization discharge is in transfer from last December with pneumonia and then UTI with hematuria are reviewed Differential considered: simple epistaxis, arterial bleed, elevated blood pressure causing persistent bleeding, coagulopathy Exam documented above, pertinent findings include: exam is fairly benign. Minor bleeding still from the right Gregg after long period of clamping as well as Afrin use. Remainder of exam is benign Lab Test results independently reviewed as above. Pertinent findings: chemistries are notable for sodium of 129 that corrects into normal range with glucose at 405 appreciated hyperkalemia initially at 7 repeat is 6.5 chronically elevated creatinine at 1.98 which appears to be close to her baseline. Anion gap of 13 protime is 19 which gives her an INR of 1.7, PTT is 39 CBC shows a normal white count at 10. Anemia at 6.1 and 19.1 with an MCV at 69.7. Comparison is a year ago with hemoglobin at 7.4 and 22 ketones are slightly elevated a Independently reviewed EKG: sinus tachycardia at a rate of 128, nonspecific STT wave changes, she does not have peaked T-waves nor widening QRS Treatments/ procedures: rhino rocket is placed into the right side of her nose without complication. Bleeding is controlled Discussion: 64-year-old woman presents with 24 hours of nosebleed, incidentally appreciated black stools that she states has started simply after the nosebleed started, hyperkalemia, chronic renal insufficiency elevated blood sugars and acute exacerbation of her chronic anemia. Given the drop in her H&H with the almost 24 hours of epistaxis with increasing dyspnea and tachycardia we will transfuse with a single unit of packed red blood cells. She has not had any further GI evaluation after starting Eliquis about a year ago. Her MCV is quite small and I am concerned that this is acute loss in the setting of chronic anemia with chronic loss as well. Has not outpatient she may benefit from GI consult with the upper and lower endoscopy. I do not suspect she is currently having any acute GI bleeding and the black stool is likely related to the acute nosebleed with her elevated potassium at 7, repeat it was 6.5, without EKG changes she is given IV insulin ( blood sugars already at 400), Lasix and oral lokalema, IV calcium is not given. Levels will need to be checked particularly after red blood cell transfusion with the epistaxis rhino rocket is placed. She will need this removed in 3-5 days. If she is still bleeding we will need ENT appointment. May be best to have ENT remove the packing initially. We will need to discuss ENT follow up prior to discharge she does currently have a blood sugar at 405 however anion gap is only 13, ketones are elevated likely due to mild volume loss, I do not believe she is currently in ketoacidosis care is reviewed with the hospitalist service patient will be admitted. Findings are reviewed in detail with the patient and her , she understands need for admission and questions are answered Discharge Plan Departure Patient Disposition: Admitted as Observation Clinical Impression: Epistaxis, Acute on chronic blood loss anemia, Acute hyperkalemia, Elevated blood sugar
[2025-01-01] MEDS: INSULIN REGULAR 100 UNIT/ML 3 ML VIAL 10 UNIT IV (23:14)
[2025-01-01] MEDS: FUROSEMIDE 40 MG/4 ML VIAL 20 MG IV (23:14)
[2025-01-01] MEDS: SODIUM ZIRCONIUM CYCLOSILICATE 10 GM POWD.PACK PO (23:15)
[2025-01-02] VITALS (24 sets, daily range): BP systolic 113–142; BP diastolic 45–63; PULSE 85–108; RESP 14–23; TEMP 36.1–36.7; O2SAT 95–100
[2025-01-02] MEDS: ALBUTEROL/IPRATROPIUM 3 ML AMPUL INH (00:11)
--- NOTE | 2025-01-02 00:58 | PM.HP.1 ---
History of Present Illness History of Present Illness Date Patient Seen: 01/02/25 Time Patient Seen: 01:00 Chief complaint: nose bleed off/on today, Sob, nausea Narrative: 64 y/o with PMH of asthma, DM, HTN, HLD, CKD, CHF, anemia, hospitalization at [facility] a year ago with DKA, CHF and sepsis, A-fib - anticoagulated, presented today with [id number] epistaxis from Lt nare. In the ED bleeding subsided and stopped with packing. Hb < 7 on admission so had 1 unit of PRBC. Reports on dark stools since 1-2 days ago. Denies prior episodes of dark or bloody stool. Without heartburn. Aware of anemia, a year ago Hb was 7.4, but not sure if her PCP or half section ironer addressed that. She never had EGD and had colonoscopy 10 years ago with polypectomy. In addition, hyperkalemic, had insulin, Lokelma, hyperglycemic, close to DKA. 129 that Sodium 129 corrects into normal range with glucose at 405 appreciated. Hyperkalemia initially at 7 repeat is 6.5. Chronically elevated creatinine at 1.98 which appears to be close to her baseline. Anion gap of 13 Hb / Hct 6.1 and 19.1 with an MCV at 69.7. [facility] Medical History (Updated 01/02/25 @ 05:54 by Milton Modi MD) HLD (hyperlipidemia) Diabetes HTN (hypertension) CKD (chronic kidney disease) Social History household members: spouse Smoking Status: Former smoker alcohol intake: current Meds Home Medications and Allergies Home Medications Medication Instructions Recorded Confirmed Type dulaglutide 3 mg/0.5 mL 3 mg SUBCUT WEEKLY 12/11/23 01/02/25 History subcutaneous pen injector (Trulicity) insulin glargine 100 unit/mL (3 30 unit SUBCUT BID 12/11/23 01/02/25 History mL) subcutaneous pen (Lantus Solostar U-100 Insulin) simvastatin 40 mg tablet 40 mg PO ONCE PM 12/11/23 01/02/25 History metoprolol succinate 100 mg 200 mg PO BID 01/02/25 01/02/25 History tablet,extended release 24 hr rivaroxaban 20 mg tablet (Xarelto) 20 mg PO DAILY 01/02/25 01/02/25 History sacubitril 97 mg-valsartan 103 mg 1 tab PO BID 01/02/25 01/02/25 History tablet (Entresto) Allergies Allergy/AdvReac Type Severity Reaction Status Date / Time No Known Drug Allergies Allergy Verified 01/01/25 19:57 Review of Systems Review of Systems Narrative: General - generalized weakness CVS / RS - exertional dyspnea, w/o chest pain GI - w/o abdominal pain, heartburn, diarrhea or constipation. Without prior melena. UG - w/o hematuria Exam Vital Signs (past 8 hours): - 01/01/25 19:57 01/01/25 21:27 01/01/25 22:01 Temperature 97.6 F Pulse Rate 122 H 99 H 96 H Respiratory Rate 18 18 25 H Blood Pressure 128/86 132/59 L Pulse Oximetry 97 99 Oxygen Delivery Method Room Air Room Air Fraction of Inspired Oxygen 01/01/25 22:02 01/01/25 22:02 01/01/25 22:30 Temperature Pulse Rate 95 H Respiratory Rate 19 Blood Pressure 127/69 127/57 L Pulse Oximetry 99 Oxygen Delivery Method Room Air Fraction of Inspired Oxygen 01/01/25 22:30 01/01/25 22:54 01/01/25 22:54 Temperature Pulse Rate 87 90 Respiratory Rate 22 22 Blood Pressure 133/60 Pulse Oximetry 98 98 Oxygen Delivery Method Room Air Room Air Fraction of Inspired Oxygen 01/01/25 23:00 01/01/25 23:00 01/01/25 23:30 Temperature Pulse Rate 94 H 93 H Respiratory Rate 20 22 Blood Pressure 128/58 L Pulse Oximetry 98 97 Oxygen Delivery Method Room Air Room Air Fraction of Inspired Oxygen 01/01/25 23:30 01/01/25 23:58 01/01/25 23:58 Temperature Pulse Rate 90 Respiratory Rate 22 Blood Pressure 126/60 121/52 L Pulse Oximetry 100 Oxygen Delivery Method Room Air Fraction of Inspired Oxygen 01/02/25 00:00 01/02/25 00:00 01/02/25 00:02 Temperature 98.0 F Pulse Rate 91 H 91 H Respiratory Rate 22 20 Blood Pressure 115/56 L 115/56 L Pulse Oximetry 100 Oxygen Delivery Method Room Air Fraction of Inspired Oxygen 01/02/25 00:11 01/02/25 00:18 01/02/25 00:20 Temperature 97.7 F Pulse Rate 93 H 85 91 H Respiratory Rate 20 22 23 Blood Pressure 122/55 L Pulse Oximetry 98 99 Oxygen Delivery Method Room Air Room Air Fraction of Inspired Oxygen 21 01/02/25 00:20 Temperature Pulse Rate Respiratory Rate Blood Pressure 122/55 L Pulse Oximetry Oxygen Delivery Method Fraction of Inspired Oxygen Fraction of Inspired Oxygen 21 SaO2/FiO2 Ratio 466 Oxygen Delivery Method Room Air Narrative Exam Narrative: General - in no distress HEENT - normocephalic Skin - pale CVS - RRR GI - abdomen not tender Neuro - lucid Objective ECG Impression: Sinus tachycardia 128 Labs 01/01/25 20:26 01/01/25 21:32 Labs: Laboratory Results - last 24 hr 01/01/25 01/01/25 01/01/25 20:26 20:38 20:55 WBC 10.1 RBC 2.75 L Hgb 6.1 L* Hct 19.1 L* MCV 69.7 L MCH 22.2 L MCHC 31.8 RDW 20.4 H Plt Count 254 Neut % (Auto) 86.1 H Lymph % (Auto) 7.9 L [place] % (Auto) 5.4 Eos % (Auto) 0.3 L Baso % (Auto) 0.3 Neut # (Auto) 8700 H Lymph # (Auto) 800 L [place] # (Auto) 600 Eos # (Auto) 0 Baso # (Auto) 0 Platelet Estimate Adequate on smear RBC Morphology See below Anisocytosis 2+ H Microcytosis 2+ H PT 19.1 H INR 1.7 H APTT 39 H VBG pH 7.29 L VBG pCO2 30.9 L VBG pO2 24 L VBG HCO3 15 L VBG Total CO2 14 L VBG O2 Saturation 36 L VBG Base Excess -10.7 L FiO2 % 21.0 % Sodium 129 L Potassium 7.0 H* Chloride 106 Carbon Dioxide 14 L BUN 62 H Creatinine 1.98 H Estimated GFR 28 L BUN/Creatinine Ratio 31.3 H Glucose 405 H Calcium 7.9 L Total Bilirubin 0.4 AST 26 ALT 15 Alkaline Phosphatase 86 Troponin I 0.028 Total Protein 5.9 L Albumin 3.0 L Globulin 2.9 Albumin/Globulin Ratio 1.0 Ketones 0.92 H Blood Type O Positive Antibody Screen Negative Crossmatch See Detail 01/01/25 21:32 WBC RBC Hgb Hct MCV MCH MCHC RDW Plt Count Neut % (Auto) Lymph % (Auto) [place] % (Auto) Eos % (Auto) Baso % (Auto) Neut # (Auto) Lymph # (Auto) [place] # (Auto) Eos # (Auto) Baso # (Auto) Platelet Estimate RBC Morphology Anisocytosis Microcytosis PT INR APTT VBG pH VBG pCO2 VBG pO2 VBG HCO3 VBG Total CO2 VBG O2 Saturation VBG Base Excess FiO2 % Sodium Potassium 6.5 H* Chloride Carbon Dioxide BUN Creatinine Estimated GFR BUN/Creatinine Ratio Glucose Calcium Total Bilirubin AST ALT Alkaline Phosphatase Troponin I Total Protein Albumin Globulin Albumin/Globulin Ratio Ketones Blood Type Antibody Screen Crossmatch Assessment & Plan Assessment and plan (1) Epistaxis: Status: Acute (2) Acute on chronic blood loss anemia: Status: Acute (3) PAF (paroxysmal atrial fibrillation): Status: Acute (4) Acute hyperkalemia: Status: Acute (5) Diabetes: Status: Acute (6) HTN (hypertension): Status: Acute (7) CKD (chronic kidney disease): Status: Acute Assessment & Plan narrative: Epistaxis - packed in the ED - Xarelto on hold Acute posthemorrhagic anemia / chronic microcytic anemia - had 1 unit or PRBCs - Xarelto on hold - iron, transferrin, stool guaiac pending - PPI daily - recommended outpatient gastroenterology visit for colonoscopy and EGD CKD - stage 3 b - at baseline Acute hyperkalemia - had treatment in the ED - w/o arrhythmia CHF - Entresto PAF / HTN - metoprolol - Xarelto on hold HLD - statin DVT prophylaxis - SCDs Patient consented to telemedicine, audio-video encounter with RN assisting with exam and electronic stethoscope. Patient located at [place], [place]. Provider located in [place]. Time-Based Coding :: [TOTAL MINUTES] spent with patient and on the chart (including review of chart, obtaining history, exam, reviewing outside data, placing orders, documenting exam and treatment plan, and counseling patient) on [DATE].
[2025-01-02 06:31] LABS: Add Manual Diff / Slide Review NO; Basophils Absolute Auto 0 /uL (0-100); Basophils Percent Auto 0.3 % (0-2); Eosinophils Absolute Auto 0 /uL (0-450); Eosinophils Percent Auto 0.2 % (2-4); Lymphocytes Absolute Auto 1500 /uL (1100-4500); Lymphocytes Percent Auto 19.4 % (25-40); Mean Corpuscular HGB Conc 32.6 % (30-36); Mean Corpuscular Hemoglobin 23.5 PG (26-34); Mean Corpuscular Volume 72.2 fL (80-100); Monocytes Absolute Auto 800 /uL (0-900); Monocytes Percent Auto 10.4 % (3-14); Neutrophils Absolute Auto 5300 /uL (1500-7000); Neutrophils Percent Auto 69.7 % (50-75); Platelet Count 216 X10^3/uL (150-400); Red Blood Cell Count 2.62 X10^6/uL (4.0-5.2); Red Cell Distribution Width 20.9 % (11.6-14.8); White Blood Cell Count 7.7 X10^3/uL (4.5-11.0)
[2025-01-02 06:41] LABS: BUN Creatinine Ratio 32.4 (6-22); Blood Urea Nitrogen 67 mg/dL (7-17); Carbon Dioxide 14 mmol/L (22-32); Chloride 107 mmol/L (98-107); Estimated Glomerular Filt Rate 26 mL/min (>60); Glucose 317 mg/dL (70-99); HEMOLYSIS < 15 (0-50); Potassium 5.3 mmol/L (3.4-5.1); Sodium 131 mmol/L (137-145)
[2025-01-02 06:42] LABS: Hematocrit 18.9 % (36-46); Hemoglobin 6.2 g/dL (12.0-16.0); Hemoglobin A1C% w Est Avg Glu 8.3 % (4.0-6.0)
[2025-01-02 06:43] LABS: HEMOLYSIS < 15 (0-50); Iron 37 ug/dL (37-170)
[2025-01-02 06:53] LABS: Percent Iron Saturation 14 % (15-50); Total Iron Binding Capacity 268 ug/dL (265-497); Transferrin 201 mg/dL (206-381)
[2025-01-02 07:15] LABS: Anisocytosis 2+; Platelet Estimate Adequate on smear
[2025-01-02 07:16] LABS: Microcytosis 2+
[2025-01-02] MEDS: INSULIN LISPRO 100 UNIT/ML 3ML VIAL SUBCUT ×4 (07:47→20:31)
[2025-01-02] MEDS: INSULIN GLARGINE 100 UNIT/ML 3ML PEN 30 UNIT SUBCUT ×2 (08:05→20:29)
[2025-01-02] MEDS: METOPROLOL ER 50 MG TABLET 200 MG PO ×2 (08:06→20:28)
[2025-01-02] MEDS: PANTOPRAZOLE 40 MG VIAL IV (08:08)
[2025-01-02] MEDS: ALBUTEROL 2.5 MG/3 ML NEB (ADULT) INH ×4 (08:45→22:52)
--- NOTE | 2025-01-02 12:50 | CM.DANOTE ---
Patient is a 64 yo female who was admitted on 01/01/25 for Bleeding/Anemia. Pt has [employer] for insurance and her PCP is Dr. Leroy Ho on [facility]. EMR was reviewed. Per MD, pt with complex medical hx that includes DM, CHF, AFIB and was admitted for Anemia, AFIB, ROMAN, and hyperkalemia and getting 2 units of blood and trying to determine source of bleed and stool guiac pending. r/o possible need of scope pending progress. Pt last admitted a year ago in December 2023 and was transferred to [facility] for higher level of care needs. SW met bedside with pt briefly and explained role and pt resting quietly but confirms she lives at home in [place] with her and both are active and independent at baseline with ADLs. Pt drives and works at baseline and does not use DME to ambulate. Pt denies any hx of HH or SNF and spouse is informally her POA. Pt's preference is to discharge home when medically stable and does not anticipate any discharge needs at this time and confirms likely spouse would drive her home. Plan: SW to follow for H&H to stabilize vs possible need for scope towards plan of d/c home with spouse when stable and any further identified discharge planning needs. SHIREEN Vaz Discharge Planning/Care Management CM Discharge Assessment Start: 01/01/25 23:58 Freq: Status: Active Protocol: Document 01/02/25 12:47 BF (Rec: 01/02/25 12:49 BF [id number]) Discharge Planning Assessment Assigned Literacy Coordinator SHIREEN De La O DPOA/Assigned Designee Name informally spouse Phillip Contact Information [phone] Advance Directives? No Advance Directives on File No History Provided By Patient,Family Member,Medical Record Has Patient been admitted in last 30 No days? Comment last admit in December 2023 last year for ROMAN and ended up needing transfer to [facility] for higher level of care needs Prior Living Arrangements House Household Members spouse Type of transporation used prior to Drives own vehicle admit Independent with ADL's Yes Is patient alert and oriented? Yes Caregiver for Another No Barriers to Discharge No Discharge Plan Home Transportation Arrangement Spouse likely to transport at d/c Referrals Initiated None needed Additional Comment Pending progress Whiteboard Updated in Patient Room with Yes name and ext. # of Literacy Coordinator Review Status In Process Please Provide Date Initial DC 01/02/25 Assessment Was Performed Next Review Type Continued Stay Review
[2025-01-02 14:14] LABS: Hematocrit 21.6 % (36-46); Hemoglobin 7.1 g/dL (12.0-16.0)
--- NOTE | 2025-01-02 14:59 | PM.PN.1 ---
Subjective Subjective Interval history: 64 y/o with PMH of asthma, DM, HTN, HLD, CKD, CHF, anemia, hospitalization at [facility] a year ago with DKA, CHF and sepsis, A-fib - anticoagulated, presented with [id number] epistaxis from her nose. In review of outside records, patient has had prior hematuria requiring cystoscopy and bladder resection (with probable benign etiology) at [facility], Exam Vital Signs (past 8 hours): - 01/02/25 07:34 01/02/25 07:49 01/02/25 08:00 Temperature 96.9 F L 97 F L 96.9 F L Pulse Rate 105 H 100 H Respiratory Rate 20 20 15 Blood Pressure 140/55 L 139/60 141/45 H Pulse Oximetry Oxygen Delivery Method 01/02/25 08:06 01/02/25 08:46 01/02/25 10:00 Temperature Pulse Rate 108 H 104 H 100 H Respiratory Rate 14 Blood Pressure 139/60 Pulse Oximetry 100 97 Oxygen Delivery Method Room Air 01/02/25 10:29 01/02/25 12:00 01/02/25 14:03 Temperature 97.7 F 97.5 F L Pulse Rate 99 H 98 H 102 H Respiratory Rate 18 16 14 Blood Pressure 142/62 H 114/55 L Pulse Oximetry 100 100 Oxygen Delivery Method Room Air Fraction of Inspired Oxygen 21 SaO2/FiO2 Ratio 466 Oxygen Delivery Method Room Air Narrative Exam Narrative: General:?Patient mildly ill appearing, no acute distress, pleasant Chest:? Normal AP diameter and contour without kyphoscoliosis, no tachypnea, equal chest rise bilaterally. Lungs:? bilateral upper airway expiratory wheezing, no obvious crackles. Cardio:?tachycardic, regular, no m/r/g Abdomen: S NT ND. Musculoskeletal:? Muscle strength and tone are equal within normal limits, no deformity. Extremities: Trace bilateral LE edema, no clubbing or joint effusions Neuro:? Alert and orientated x3,? sensation to touch intact in all extremities, no gross deficits noted of cranial nerves. Psych:? Patient has a well-kept appearance, appropriate affect, mental status attitude thought context and judgment are appropriate for age. Objective Labs 01/02/25 13:57 01/02/25 05:33 Labs: Laboratory Results - last 24 hr 01/01/25 01/01/25 01/01/25 20:26 20:38 20:55 WBC 10.1 RBC 2.75 L Hgb 6.1 L* Hct 19.1 L* MCV 69.7 L MCH 22.2 L MCHC 31.8 RDW 20.4 H Plt Count 254 Neut % (Auto) 86.1 H Lymph % (Auto) 7.9 L [place] % (Auto) 5.4 Eos % (Auto) 0.3 L Baso % (Auto) 0.3 Neut # (Auto) 8700 H Lymph # (Auto) 800 L [place] # (Auto) 600 Eos # (Auto) 0 Baso # (Auto) 0 Platelet Estimate Adequate on smear RBC Morphology See below Anisocytosis 2+ H Microcytosis 2+ H PT 19.1 H INR 1.7 H APTT 39 H VBG pH 7.29 L VBG pCO2 30.9 L VBG pO2 24 L VBG HCO3 15 L VBG Total CO2 14 L VBG O2 Saturation 36 L VBG Base Excess -10.7 L FiO2 % 21.0 % Sodium 129 L Potassium 7.0 H* Chloride 106 Carbon Dioxide 14 L BUN 62 H Creatinine 1.98 H Estimated GFR 28 L BUN/Creatinine Ratio 31.3 H Glucose 405 H Hemoglobin A1c Calcium 7.9 L Iron TIBC % Saturation Transferrin Total Bilirubin 0.4 AST 26 ALT 15 Alkaline Phosphatase 86 Troponin I 0.028 Total Protein 5.9 L Albumin 3.0 L Globulin 2.9 Albumin/Globulin Ratio 1.0 Ketones 0.92 H Blood Type O Positive Antibody Screen Negative Crossmatch See Detail 01/01/25 01/02/25 01/02/25 21:32 05:33 13:57 WBC 7.7 RBC 2.62 L Hgb 6.2 L* 7.1 L Hct 18.9 L* 21.6 L MCV 72.2 L MCH 23.5 L MCHC 32.6 RDW 20.9 H Plt Count 216 Neut % (Auto) 69.7 Lymph % (Auto) 19.4 L [place] % (Auto) 10.4 Eos % (Auto) 0.2 L Baso % (Auto) 0.3 Neut # (Auto) 5300 Lymph # (Auto) 1500 [place] # (Auto) 800 Eos # (Auto) 0 Baso # (Auto) 0 Platelet Estimate Adequate on smear RBC Morphology See below Anisocytosis 2+ H Microcytosis 2+ H PT INR APTT VBG pH VBG pCO2 VBG pO2 VBG HCO3 VBG Total CO2 VBG O2 Saturation VBG Base Excess FiO2 % Sodium 131 L Potassium 6.5 H* 5.3 H D Chloride 107 Carbon Dioxide 14 L BUN 67 H Creatinine 2.07 H Estimated GFR 26 L BUN/Creatinine Ratio 32.4 H Glucose 317 H Hemoglobin A1c 8.3 H Calcium 8.0 L Iron 37 TIBC 268 % Saturation 14 L Transferrin 201 L Total Bilirubin AST ALT Alkaline Phosphatase Troponin I Total Protein Albumin Globulin Albumin/Globulin Ratio Ketones Blood Type Antibody Screen Crossmatch [facility] Medical History (Updated 01/02/25 @ 05:54 by Milton Modi MD) HLD (hyperlipidemia) Diabetes HTN (hypertension) CKD (chronic kidney disease) Social History household members: spouse Smoking Status: Former smoker alcohol intake: current Assessment & Plan Assessment & Plan narrative: Epistaxis with acute blood loss anemia - packed nare in the ED - Xarelto on hold - now s/p 2U PRBC today, Hg only to 7.1. Will continue to trend tomorrow. - Xarelto on hold - iron low normal, transferrin low, stool guaiac pending. Will start oral iron, consider IV iron depending on h/h trend. - PPI daily - recommended outpatient gastroenterology visit for colonoscopy and EGD or if h/h continues to downtrend consider here. Patient also has a history of cystoscopy at outside hospital after hematuria, though no hematuria currently. ROMAN on CKD - baseline cr 1.4 per review of outside records in [facility] (though this lab was from 12/2023) - Cr around 2 here since admission Acute hyperkalemia - had treatment in the ED - w/o arrhythmia - follow bmp CHF - Entresto to continue, consider holding depending on lab trend with renal function tomorrow and patient's BP which are currently okay. paroxysmal atrial fibrillation / HTN - metoprolol 200 mg BID to continue - Xarelto on hold HLD - statin Code: Full, surrogate is patient's spouse DVT: Lovenox daily I have utilized all available immediate resources to obtain, update, or review the patient's current medications. Additional history obtained via outpatient records review, discussion with rn case mgr and bedside RN today. DVT prophylaxis - SCDs Code: full, surrogate is patient's spouse. Time-Based Coding :: [TOTAL MINUTES] spent with patient and on the chart (including review of chart, obtaining history, exam, reviewing outside data, placing orders, documenting exam and treatment plan, and counseling patient) on [DATE].
[2025-01-02] MEDS: ATORVASTATIN 20 MG TABLET PO (20:28)
[2025-01-03] VITALS (10 sets, daily range): BP systolic 136–143; BP diastolic 60–67; PULSE 93–105; RESP 14–22; TEMP 36–36.8; O2SAT 96–100
[2025-01-03] MEDS: ALBUTEROL 2.5 MG/3 ML NEB (ADULT) INH ×4 (02:07→11:49)
[2025-01-03 06:17] LABS: Add Manual Diff / Slide Review NO; Basophils Absolute Auto 0 /uL (0-100); Basophils Percent Auto 0.2 % (0-2); Eosinophils Absolute Auto 200 /uL (0-450); Hematocrit 21.3 % (36-46); Lymphocytes Absolute Auto 1100 /uL (1100-4500); Lymphocytes Percent Auto 11.8 % (25-40); Mean Corpuscular HGB Conc 32.9 % (30-36); Mean Corpuscular Hemoglobin 24.6 PG (26-34); Mean Corpuscular Volume 74.7 fL (80-100); Monocytes Absolute Auto 700 /uL (0-900); Neutrophils Absolute Auto 7500 /uL (1500-7000); Platelet Count 221 X10^3/uL (150-400); Red Blood Cell Count 2.85 X10^6/uL (4.0-5.2); Red Cell Distribution Width 22.2 % (11.6-14.8); White Blood Cell Count 9.5 X10^3/uL (4.5-11.0)
[2025-01-03 06:19] LABS: BUN Creatinine Ratio 30.5 (6-22); Blood Urea Nitrogen 64 mg/dL (7-17); Calcium 8.6 mg/dL (8.4-10.2); Carbon Dioxide 15 mmol/L (22-32); Chloride 108 mmol/L (98-107); Estimated Glomerular Filt Rate 26 mL/min (>60); Glucose 215 mg/dL (70-99); HEMOLYSIS < 15 (0-50); Magnesium 1.7 mg/dL (1.6-2.3); Potassium 4.8 mmol/L (3.4-5.1); Sodium 132 mmol/L (137-145)
[2025-01-03 06:43] LABS: Anisocytosis 2+; Microcytosis 2+; Platelet Estimate Adequate on smear
--- NOTE | 2025-01-03 08:00 | DI.US.S_ITS ---
PROCEDURE: US RENAL COMPLETE INDICATIONS: ACUTE KIDNEY INJURY TECHNIQUE: Real-time scanning was performed of the kidneys and bladder, with image documentation. COMPARISON: [facility], , US RENAL COMPLETE, 12/28/2023, 15:55. FINDINGS: Kidneys: Kidneys are normal in size. Right kidney measures 10.5 cm long; left kidney measures 12.0 cm long. Right renal cortical thickness is 1.4 cm; left renal cortical thickness is 1.2 cm. Renal cortical echotexture is normal. No hydronephrosis or nephrolithiasis. No suspicious solid mass lesions. Bladder: Pre-void bladder volume is 54 mL. Pre-void images demonstrate no intraluminal masses or stones. On pre-void images, no ureteral jets are noted with color Doppler interrogation. (Of note, ureteral jets may not be detectable in up to 25% of cases due to insufficient differences in specific gravity between ureteral and bladder urine). Miscellaneous: No free pelvic fluid. IMPRESSION: No gross abnormality is seen in bilateral kidneys and urinary bladder. Dictated by: Dipak Hyatt M.D. on 01/03/2025 at 8:26 Approved by: Dipak Hyatt M.D. on 01/03/2025 at 8:28
[2025-01-03] MEDS: METOPROLOL ER 50 MG TABLET 200 MG PO (08:22)
[2025-01-03] MEDS: INSULIN GLARGINE 100 UNIT/ML 3ML PEN 30 UNIT SUBCUT (08:23)
[2025-01-03] MEDS: FERROUS SULFATE 325 MG TABLET PO (08:24)
[2025-01-03] MEDS: PANTOPRAZOLE 40 MG VIAL IV (08:25)
[2025-01-03] MEDS: INSULIN LISPRO 100 UNIT/ML 3ML VIAL SUBCUT ×4 (08:25→12:06)
[2025-01-03] MEDS: MAGNESIUM CHLORIDE 64 MG TABLET 128 MG PO (12:02)
--- NOTE | 2025-01-03 13:42 | P.DS_ITS ---
History of Present Illness History of Present Illness Date Patient Seen: 01/03/25 Chief complaint: Epistaxis acute blood loss anemia requiring transf Narrative: Chief complaint: Acute epistaxis for 24 hours requiring nasal tampon and transfusion History of present illness: 64 y/o with PMH of asthma, DM, HTN, HLD, CKD, CHF, anemia, hospitalization at [facility] a year ago with DKA, CHF and sepsis, A-fib - anticoagulated, presented today with [id number] epistaxis from Lt nare. In the ED bleeding subsided and stopped with packing. Hb < 7 on admission so had 1 unit of PRBC. Reports on dark stools since 1-2 days ago. Denies prior episodes of dark or bloody stool. Without heartburn. Aware of anemia, a year ago Hb was 7.4, but not sure if her PCP or patient relations manager addressed that. She never had EGD and had colonoscopy 10 years ago with polypectomy. In addition, hyperkalemic, had insulin, Lokelma, hyperglycemic, close to DKA. 129 that Sodium 129 corrects into normal range with glucose at 405 appreciated. Hyperkalemia initially at 7 repeat is 6.5. Chronically elevated creatinine at 1.98 which appears to be close to her baseline. Anion gap of 13 Hb / Hct 6.1 and 19.1 with an MCV at 69.7. Hospital course: 01/02--01/03: No further epistaxis transfuse 2 units of packed red blood cells hemoglobin 7.1 and 24 hours later 7.0 patient not symptomatic the creatinine also increased from baseline but stable during the 3 day course Review of systems: No more epistaxis hematemesis nausea vomiting melena no shortness a breath fatigue chest pain Physical exam: No acute distress alert cogent HEENT no further epistaxis rhino rocket is in place No respiratory labored No abdominal distention No extremity edema Assessment and plan: Epistaxis with acute blood loss anemia - packed nare in the ED remove in 3 days - Xarelto on hold can resume at discharge - s/p 2U PRBC today, Hg stable at 7 - iron low normal, transferrin low, stool guaiac pending. Will start oral iron - PPI daily - recommended outpatient gastroenterology visit for colonoscopy and EGD or if h/h continues to downtrend consider here. Patient also has a history of cystoscopy at outside hospital after hematuria, though no hematuria currently. ROMAN on CKD - baseline cr 1.4 per review of outside records in [facility] (though this lab was from 12/2023) - Cr around 2 here since admission Acute hyperkalemia - had treatment in the ED - w/o arrhythmia - follow bmp CHF - Entresto to continue, consider holding depending on lab trend with renal function tomorrow and patient's BP which are currently okay. paroxysmal atrial fibrillation / HTN - metoprolol 200 mg BID to continue - Xarelto on hold HLD - statin Time-Based Coding :: 35 minutes spent with patient and on the chart (including review of chart, obtaining history, exam, reviewing outside data, placing orders, documenting exam and treatment plan, and counseling patient) on. Discharge Providers Provider Date of admission: 01/01/25 23:48 Discharge Date: 01/03/25 Primary care physician: Leroy Ho MD Discharge provider: Miah Brasher MD Exam Vital Signs (past 8 hours): - 01/03/25 07:27 01/03/25 08:00 01/03/25 08:22 Temperature 96.8 F L Pulse Rate 104 H 104 H 103 H Respiratory Rate 20 20 Blood Pressure 143/60 H 143/60 H Pulse Oximetry 97 96 Oxygen Delivery Method Room Air Oxygen Flow Rate 0 Fraction of Inspired Oxygen 21 01/03/25 11:49 01/03/25 12:00 Temperature 97.9 F Pulse Rate 104 H 105 H Respiratory Rate 18 18 Blood Pressure 136/61 Pulse Oximetry 97 97 Oxygen Delivery Method Room Air Oxygen Flow Rate 0 Fraction of Inspired Oxygen 21 Fraction of Inspired Oxygen 21 SaO2/FiO2 Ratio 461 Oxygen Delivery Method Room Air Oxygen Flow Rate 0 Objective Labs 01/03/25 05:06 01/03/25 05:06 Labs: Laboratory Results - last 24 hr 01/02/25 01/03/25 13:57 05:06 WBC 9.5 RBC 2.85 L Hgb 7.1 L 7.0 L Hct 21.6 L 21.3 L MCV 74.7 L MCH 24.6 L MCHC 32.9 RDW 22.2 H Plt Count 221 Neut % (Auto) 79.0 H Lymph % (Auto) 11.8 L [place] % (Auto) 7.0 Eos % (Auto) 2.0 Baso % (Auto) 0.2 Neut # (Auto) 7500 H Lymph # (Auto) 1100 [place] # (Auto) 700 Eos # (Auto) 200 Baso # (Auto) 0 Platelet Estimate Adequate on smear RBC Morphology See below Anisocytosis 2+ H Microcytosis 2+ H Sodium 132 L Potassium 4.8 Chloride 108 H Carbon Dioxide 15 L BUN 64 H Creatinine 2.10 H Estimated GFR 26 L BUN/Creatinine Ratio 30.5 H Glucose 215 H D Calcium 8.6 Magnesium 1.7 PFSH Medical History (Updated 01/02/25 @ 05:54 by Milton Modi MD) HLD (hyperlipidemia) Diabetes HTN (hypertension) CKD (chronic kidney disease) Social History household members: spouse Smoking Status: Former smoker alcohol intake: current Discharge Plan Discharge Plan Patient Disposition: Home Discharge orders & Medications Prescriptions: New ferrous sulfate [Iron (ferrous sulfate)] 325 mg (65 mg iron) tablet 325 mg PO BID Qty: 60 0RF Continued simvastatin 40 mg tablet 40 mg PO ONCE PM insulin glargine [Lantus Solostar U-100 Insulin] 100 unit/mL (3 mL) insulin pen 30 unit SUBCUT BID Patient Comments: [NO ORIGINAL SIG] Rx Instructions: 30 units q AM 36 units q PM Trulicity 3 mg/0.5 mL pen injector 3 mg SUBCUT WEEKLY Patient Comments: [NO ORIGINAL SIG] Entresto 97-103 mg tablet 1 tab PO BID Xarelto 20 mg tablet 20 mg PO DAILY Rx Instructions: takes twice daily- doesn't know dose metoprolol succinate 100 mg tablet extended release 24 hr 200 mg PO BID Follow up/Referrals: Leroy Ho MD [Primary Care Provider] - Visit Report/Discharge Packet Stand Alone Forms: Patient Portal/API Discharge Data Primary Care Provider: Leroy Ho
[2025-01-03] MEDS: ALBUTEROL/IPRATROPIUM 3 ML AMPUL INH (14:24)
--- NOTE | 2025-01-03 15:38 | CM.DPC ---
DCP Discharge Home Per MD, pt medically stable to d/c home today as no further bleeding and H&H stable and outpt follow up. Per RN, pt leaving around 1700 today waiting for her ride and no concerns noted. SHIREEN Vaz
--- NOTE | 2025-01-03 16:59 | PC.NURSE ---
Patient A&OX4, VSS, slightly tachycardic at baseline. Patient denies pain, bleeding or having any BM. She is cleared for discharge home today by hospitalist after renal U/S. Her arrives after work to transport patient home at 1630. She verbalizes understanding of new order to take iron supplement BID, and return to ED on 01/05 for removal of rhinal rocket. She is escorted by RN via w/ch to private vehicle with her and all of her belongings at 1645 this afternoon.
== END 2025-01-03 16:45 | disposition home or self-care (01) | DRG 812 ==
LOC: ED 23:18 → AC 01-02 00:17
PROVIDERS: Internal Medicine; Admitting Provider Internal Medicine; Emergency Provider Emergency Medicine; Referring Provider Emergency Medicine; Visit Provider Internal Medicine
DX: D62 Acute posthemorrhagic anemia (principal); I13.0 Hypertensive heart and chronic kidney disease with heart failure and stage 1 through stage 4 chronic kidney disease, or unspecified chronic kidney disease; N17.9 Acute kidney failure, unspecified; R04.0 Epistaxis; N18.32 Chronic kidney disease, stage 3b; I48.0 Paroxysmal atrial fibrillation; E87.5 Hyperkalemia; E11.22 Type 2 diabetes mellitus with diabetic chronic kidney disease; I50.9 Heart failure, unspecified; E78.5 Hyperlipidemia, unspecified; E11.65 Type 2 diabetes mellitus with hyperglycemia; Z79.4 Long term (current) use of insulin; Z79.01 Long term (current) use of anticoagulants; Z87.891 Personal history of nicotine dependence; Z79.85 Long-term (current) use of injectable non-insulin antidiabetic drugs
CPT/HCPCS: 36415; 36430; 76770; 80048; 80053; 82009; 82805; 82962; 83036; 83540; 83550; 83735; 84132; 84484; 85014; 85018; 85025; 85610; 85730; 86850; 86900; 86901; 93005; 94640; 96361; 96374; 96375; 99285; P9016; J1815; J1938; J2405; J2470; J7613

== ENCOUNTER 2025-01-05 17:18 | Emergency (ER) | payer OTHER, SELFPAY ==
[2023-12-12 13:00] VITALS: PULSE 100; RESP 20; O2SAT 96
[2025-01-01 23:58] VITALS: BMI 39.2
[2025-01-05 17:22] VITALS: BP 131/58; PULSE 92; RESP 20; TEMP 36.6; O2SAT 99; BMI 38.6
--- NOTE | 2025-01-05 18:15 | ED.RECABL ---
HPI - Recheck/Abnormal Lab/Rx <Elaine Peck PA-C - Last Filed: 01/06/25 11:16> General Chief Complaint: Recheck/Abnormal Lab/Rx Stated Complaint: Rhino Rocket Removal Time Seen by Provider: 01/05/25 18:13 Mode of arrival: Ambulatory History of Present Illness HPI narrative: Ms. Bravo is a 64-year-old female with a past medical history of asthma, diabetes, hypertension, hyperlipidemia, CKD, CHF, anemia, CHF, AFib anticoagulated who presents to the emergency department for rhino rocket removal. Patient came to the emergency department on January 01 for a 24 hour nosebleed and had a rhino rocket placed, she was admitted and received 2 units of PRBCs. She had a rhino rocket placed into her right nare which stopped the epistaxis. States that she was unaware she should follow up with the ENT. She has not had any bleeding since, no black stools. Related Data Home Medications ?Medication ?Instructions ?Recorded ?Confirmed dulaglutide 3 mg/0.5 mL 3 mg SUBCUT WEEKLY 12/11/23 01/02/25 subcutaneous pen injector (Trulicity) insulin glargine 100 unit/mL (3 30 unit SUBCUT BID 12/11/23 01/02/25 mL) subcutaneous pen (Lantus Solostar U-100 Insulin) simvastatin 40 mg tablet 40 mg PO ONCE PM 12/11/23 01/02/25 metoprolol succinate 100 mg 200 mg PO BID 01/02/25 01/02/25 tablet,extended release 24 hr rivaroxaban 20 mg tablet (Xarelto) 20 mg PO DAILY 01/02/25 01/02/25 sacubitril 97 mg-valsartan 103 mg 1 tab PO BID 01/02/25 01/02/25 tablet (Entresto) Previous Rx's ?Medication ?Instructions ?Recorded ferrous sulfate 325 mg (65 mg 325 mg PO BID #60 tabs 01/03/25 iron) tablet (Iron (ferrous sulfate)) amoxicillin 875 mg-potassium 1 tab PO BID 5 days #10 tabs 01/05/25 clavulanate 125 mg tablet Allergies Allergy/AdvReac Type Severity Reaction Status Date / Time No Known Drug Allergies Allergy Verified 01/05/25 17:22 Review of Systems <Elaine Peck PA-C - Last Filed: 01/06/25 11:16> Review of Systems ROS Unobtainable: All systems reviewed & are unremarkable except as noted in HPI and below Patient History <Elaine Peck PA-C - Last Filed: 01/06/25 11:16> Medical History HLD (hyperlipidemia) Diabetes HTN (hypertension) CKD (chronic kidney disease) Social History household members: spouse Smoking Status: Never smoker alcohol intake: current Smoking Status: Never smoker tobacco type: cigarettes alcohol intake frequency: holidays/special occasions only Exam <PATRICIA Kemp Last Filed: 01/06/25 11:16> Narrative Exam Narrative: GENERAL: 64 year old patient appears stated age. Well-developed patient, in no acute distress. HEAD: Atraumatic. Normocephalic. ENT: Right naris rhino rocket in place. Nose without bleeding, purulent drainage. CARDIOVASCULAR: Regular rate RESPIRATORY: ?Nonlabored respirations. ?Speaking in clear, full sentences. ? NEURO: AOx3. ?Clear speech. ?Moves all 4 extremities appropriately. SKIN: Very pale. Initial Vital Signs Initial Vital Signs: Vital Signs Temperature 98 F 01/05/25 17:22 Pulse Rate 92 H 01/05/25 17:22 Respiratory Rate 20 01/05/25 17:22 Blood Pressure 131/58 L 01/05/25 17:22 Pulse Oximetry 99 01/05/25 17:22 Oxygen Delivery Method Room Air 01/05/25 17:22 <Kalpana Allred DO - Last Filed: 01/07/25 06:37> Initial Vital Signs Initial Vital Signs: Vital Signs Temperature 98 F 01/05/25 17:22 Pulse Rate 92 H 01/05/25 17:22 Respiratory Rate 20 01/05/25 17:22 Blood Pressure 131/58 L 01/05/25 17:22 Pulse Oximetry 99 01/05/25 17:22 Oxygen Delivery Method Room Air 01/05/25 17:22 Course <Elaine Peck PA-C - Last Filed: 01/06/25 11:16> Orders Ordered: Discontinued Medications Amoxicillin/Clavulanate Potassium (Amoxicillin/Clav 875/125 Mg) 1 tab PO NOW ONE Stop: 01/05/25 19:23 Last Admin: 01/05/25 19:48 Dose: 1 tab Documented By: RIGOBERTO Bacitracin (Bacitracin Oint 0.9 Gm Pckt) 1 applic TOP NOW ONE Stop: 01/05/25 19:25 Last Admin: 01/05/25 20:08 Dose: Not Given Documented By: RIGOBERTO Vital Signs Vital signs: Vital Signs - 8 hr 01/05/25 17:22 Temperature 98 F Pulse Rate 92 H Respiratory Rate 20 Blood Pressure 131/58 L Pulse Oximetry 99 Oxygen Delivery Method Room Air <Kalpana Allred DO - Last Filed: 01/07/25 06:37> Orders Ordered: Discontinued Medications Amoxicillin/Clavulanate Potassium (Amoxicillin/Clav 875/125 Mg) 1 tab PO NOW ONE Stop: 01/05/25 19:23 Last Admin: 01/05/25 19:48 Dose: 1 tab Documented By: RIGOBERTO Bacitracin (Bacitracin Oint 0.9 Gm Pckt) 1 applic TOP NOW ONE Stop: 01/05/25 19:25 Last Admin: 01/05/25 20:08 Dose: Not Given Documented By: RIGOBERTO Vital Signs Vital signs: Vital Signs - 8 hr 01/05/25 17:22 Temperature 98 F Pulse Rate 92 H Respiratory Rate 20 Blood Pressure 131/58 L Pulse Oximetry 99 Oxygen Delivery Method Room Air [facility] - Recheck/Abnormal Lab/Rx <Elaine Peck PA-C - Last Filed: 01/06/25 11:16> Medical Records Attestation: I reviewed the patient's medical records. [facility] Narrative Medical decision making narrative: 64-year-old female with a past medical history of asthma, diabetes, hypertension, hyperlipidemia, CKD, CHF, anemia, CHF, AFib anticoagulated who presents to the emergency department for rhino rocket removal. Differential diagnosis includes but is not limited to epistaxis, rhino rocket removal, etc. On exam patient is in no acute distress, nontoxic appearing, vital signs appropriate. She is extremely pale, hemoglobin was 7.0 at discharge. She has had no bleeding since then. Here for rhino rocket removal, states that she was not informed follow up with the ENT. I did call and consult ENT, Dr. Cosme, recommended deflating the balloon, watching patient and replacing if she has rebleeding otherwise can slowly remove, recommends placing cotton ball and Vaseline into the narrow at home and following up with the ENT. 1920: Rhino rocket removed with Dr. Allred at the bedside. No active bleeding. Will monitor pt in ED for 30 additional minutes, due to shift change, attending ED to dispo. First dose of Augmentin given to patient, remainder prescription sent to pharmacy of choice. Recommended placing cotton ball and Vaseline into the nose as recommended by ENT, avoid picking or blowing nose. Patient verbalized understanding of all information. Discharge Plan Departure Patient Disposition: Home Clinical Impression: Encounter for removal of nasal packing Instructions: DI for Nosebleed Activity Restrictions/Additional Instructions: Dear Ms. Bravo, Today we removed the packing from the right side of your nose. Please follow up with Ears, Nose, Throat specialist Dr. Cosme at [facility] for further management. Please use a cotton ball with Vaseline in the right nose to allow for a humid environment to promote wound healing. Avoid blowing or picking your nose or aggressively clearing the throat. Please follow up with your primary care doctor within the next 2-3 days for ER follow-up. (If you do not have a PCP you can call [phone]. ?to schedule an appointment with an [facility] Primary Care Provider) IF YOU DEVELOP ANY NEW OR WORSENING SYMPTOMS, RETURN TO THE ER! Please read the attached instructions, they highlight more specific treatments and interventions for you at home. Thank you for letting me participate in your care, Elaine Peck PA-C Prescriptions: New amoxicillin-pot clavulanate 875-125 mg tablet 1 tab PO BID 5 Days Qty: 10 0RF No Action simvastatin 40 mg tablet 40 mg PO ONCE PM insulin glargine [Lantus Solostar U-100 Insulin] 100 unit/mL (3 mL) insulin pen 30 unit SUBCUT BID Patient Comments: [NO ORIGINAL SIG] Rx Instructions: 30 units q AM 36 units q PM Trulicity 3 mg/0.5 mL pen injector 3 mg SUBCUT WEEKLY Patient Comments: [NO ORIGINAL SIG] Entresto 97-103 mg tablet 1 tab PO BID Xarelto 20 mg tablet 20 mg PO DAILY Rx Instructions: takes twice daily- doesn't know dose metoprolol succinate 100 mg tablet extended release 24 hr 200 mg PO BID ferrous sulfate [Iron (ferrous sulfate)] 325 mg (65 mg iron) tablet 325 mg PO BID Qty: 60 0RF Referrals: Leroy Ho MD [Primary Care Provider, Family Practice] Josh Cosme MD [Physician, Ear, Nose, Throat] Referral Note: right rhino rocket removed Stand Alone Forms: Patient Portal/API ED Sign-out <Kalpana Allred, - Last Filed: 01/07/25 06:37> Cosign ED Attending Cosignature Attestation: I was immediately available in the department for consultation. Case was discussed with myself, ENT was consulted for their recommendations. Rhino rocket was removed here in the department with myself at bedside. Patient tolerated well was monitored for 30+ minutes and discharged home with referral to ENT. Patient has a little bit of sinus discomfort for the last several days no fevers but was covered with antibiotics.
[2025-01-05] MEDS: AMOXICILLIN/CLAV 875/125 MG 1 TAB PO (19:48)
[2025-01-05 20:06] VITALS: BP 128/78; PULSE 72; RESP 16; O2SAT 100
== END 2025-01-05 20:08 | disposition home or self-care (01) ==
PROVIDERS: Emergency Provider Physician Assistant
DX: Z48.00 Encounter for change or removal of nonsurgical wound dressing (principal)
CPT/HCPCS: 99283